=== PATIENT | female | born 1980 | race Caucasian/White ===

== ENCOUNTER → 2018-04-19 09:59 | Outpatient (CLI) | payer OTHER, SELFPAY ==
[2018-04-19 11:49] LABS: Hemoglobin A1c 5.6 % (4.2-6.3)
[2018-04-19 11:52] LABS: Progesterone Level 6.03 ng/mL (See Comment)
[2018-04-19 11:55] LABS: Estradiol 80.5 pg/mL; Thyroid Stim Hormone (TSH) 1.43 uIU/mL (0.358-3.74)
[2018-04-21 11:52] LABS: HPV Reflexed? NOT INDICATED
== END ==
PROVIDERS: Visit Provider Obstetrics & Gynecology
DX: N92.0 Excessive and frequent menstruation with regular cycle (principal); Z12.4 Encounter for screening for malignant neoplasm of cervix
CPT/HCPCS: 36415; 82670; 83036; 84144; 84403; 84443; 88175; G0145

== ENCOUNTER → 2018-09-12 13:38 | Outpatient (CLI) | payer OTHER, SELFPAY ==
--- NOTE | 2018-09-12 13:45 | RAD_ITS ---
STUDY: X-RAY - PELVIS AND RIGHT HIP REASON FOR EXAM: Female, 38 years old. Right hip pain. No known injury TECHNIQUE: Radiological exam, hip, unilateral, with pelvis when performed; 2 or 3 views. COMPARISON: None. FINDINGS: There is a non-specific bowel gas pattern. Normal visualized soft tissue structures. Normal bilateral iliac wings, sacroiliac joints and visualized sacrum. Normal bilateral superior and inferior pubic rami. Normal pubic symphysis. Normal bilateral ischial tuberosities. Normal visualized femoral head. Normal acetabulum. Normal hip joint. RAD/HIP, UNI W/ Pelvis 2-3 Views IMPRESSION: Normal x-ray examination of the pelvis and hip. Electronically Signed: Bharath Hurt DO at 12:50 EDT Tel , Service support ,
== END ==
PROVIDERS: Family Provider Family Medicine; PCP Family Medicine; Referring Provider Family Medicine; Visit Provider Family Medicine
DX: M25.559 Pain in unspecified hip (principal)
CPT/HCPCS: 73502

== ENCOUNTER → 2019-04-18 14:28 | Outpatient (CLI) | payer OTHER, SELFPAY ==
[2017-11-17 14:37] VITALS: BMI 27.2
[2019-04-21 12:48] LABS: HPV Reflexed? NOT INDICATED
== END ==
PROVIDERS: Visit Provider Obstetrics & Gynecology
DX: Z12.4 Encounter for screening for malignant neoplasm of cervix (principal)
CPT/HCPCS: 88175; G0145

== ENCOUNTER → 2019-06-14 14:47 | Outpatient (CLI) | payer OTHER, SELFPAY ==
--- NOTE | 2019-06-14 14:50 | BI_ITS ---
MAMMOGRAPHY - BILATERAL SCREENING REASON FOR EXAM: Female, 39 years old. Routine annual screening examination. PERTINENT HISTORY: Mother with breast cancer. Grandmother with breast cancer. TECHNIQUE: Digital bilateral breast danny (3D mammographic acquisition) in the CC and MLO projections. 2-D mediolateral oblique (MLO) and craniocaudad (CC) views of both breasts were obtained. CAD: Full Field Digital Mammography with Computer Added Detection was performed. COMPARISON: None. Baseline examination. FINDINGS: Breast Composition: The breasts are heterogeneously dense, which may obscure small masses. There are no dominant masses or suspicious calcifications. No other significant abnormalities are identified. BI/SCREEN MAMM (CAD) W/DANNY BILAT IMPRESSION: Negative screening mammogram. Yearly followup mammogram recommended. (A) ASSESSMENT CATEGORY: BIRADS Category 1: Negative. A letter regarding these results will be sent to the patient by the facility within 30 days. Approximately 10% of breast cancers are not detected by mammography. A normal mammogram should not delay biopsy of a clinically suspicious abnormality. [id number] Electronically Signed: Deven Mendoza, at 15:46 EDT , Service support ,
== END ==
PROVIDERS: Referring Provider Obstetrics & Gynecology; Visit Provider Obstetrics & Gynecology
DX: Z12.31 Encounter for screening mammogram for malignant neoplasm of breast (principal)
CPT/HCPCS: 77063; 77067

== ENCOUNTER → 2020-07-11 14:06 | Outpatient (CLI) | payer OTHER, SELFPAY ==
[2017-11-17 14:37] VITALS: BMI 27.2
[2020-07-15 20:54] LABS: HPV APTIMA, High Risk Negative (Negative); HPV Reflexed? YES, CHARGE PATIENT
== END ==
PROVIDERS: Referring Provider Student in an Organized Health Care Education/Training Program; Visit Provider Student in an Organized Health Care Education/Training Program
DX: Z12.4 Encounter for screening for malignant neoplasm of cervix (principal)
CPT/HCPCS: 87624; 88175; G0145

== ENCOUNTER 2022-01-28 07:56 | Outpatient (CLI) | payer OTHER, SELFPAY ==
--- NOTE | 2022-01-28 07:58 | BI_ITS ---
MAMMOGRAPHY - BILATERAL SCREENING REASON FOR EXAM: Female, 41 years old. Routine annual screening examination. PERTINENT HISTORY: Mother with breast cancer. Grandmother with breast cancer. Aunts with breast cancer. TECHNIQUE: Digital bilateral breast danny (3D mammographic acquisition) in the CC and MLO projections. 2-D mediolateral oblique (MLO) and craniocaudad (CC) views of both breasts were obtained. CAD: Full Field Digital Mammography with Computer Added Detection was performed. COMPARISON: Comparison is made with prior study dated 06/14/2019. FINDINGS: Breast Composition: The breasts are extremely dense, which lowers the sensitivity of mammography. There are no dominant masses or suspicious calcifications. Stable small benign appearing bilateral axillary lymph nodes. No other significant abnormalities are identified. There has been no significant change since the prior study. BI/SCRN MAMM (CAD)W/DANNY BILAT IMPRESSION: Stable bilateral screening mammogram. Yearly follow-up mammogram recommended. (A) ASSESSMENT CATEGORY: BIRADS Category 2: Benign. A letter regarding these results will be sent to the patient by the facility within 30 days. Approximately 10% of breast cancers are not detected by mammography. A normal mammogram should not delay biopsy of a clinically suspicious abnormality. [id number] Electronically Signed: Deven Mendoza MD at 9:48 EST ,
== END 2022-01-28 23:59 | disposition home or self-care (01) ==
LOC: OPBI 07:56
PROVIDERS: PCP Family Medicine; Visit Provider Student in an Organized Health Care Education/Training Program
DX: Z12.31 Encounter for screening mammogram for malignant neoplasm of breast (principal); Z80.3 Family history of malignant neoplasm of breast
CPT/HCPCS: 77063; 77067

== ENCOUNTER → 2023-07-08 | Outpatient (CLI) | payer OTHER, SELFPAY ==
[2023-07-08 12:21] LABS: Progesterone Level 0.67 ng/mL (See Comment)
[2023-07-08 12:25] LABS: Estradiol 47.6 pg/mL; Follicle Stimulating Hormone 38.1 mIU/mL; Luteinizing Hormone 53.4 mIU/mL; Prolactin 11.7 ng/mL; Thyroid Stim Hormone (TSH) 1.34 uIU/mL (0.358-3.74)
[2023-07-14 16:10] LABS: HPV APTIMA, High Risk Negative (Negative)
== END | disposition home or self-care (01) ==
LOC: LABSPEC 11:21
PROVIDERS: PCP Family Medicine; Visit Provider Student in an Organized Health Care Education/Training Program
DX: Z01.419 Encounter for gynecological examination (general) (routine) without abnormal findings (principal); N93.9 Abnormal uterine and vaginal bleeding, unspecified
CPT/HCPCS: 36415; 82670; 83001; 83002; 84144; 84146; 84443; 87624; 88175; G0145

== ENCOUNTER → 2023-07-29 | Outpatient (CLI) | payer OTHER, SELFPAY ==
--- NOTE | 2023-07-29 10:51 | BI_ITS ---
MAMMOGRAPHY - BILATERAL SCREENING REASON FOR EXAM: Female, 43 years old. Routine annual screening examination. PERTINENT HISTORY: Mother with breast cancer. Grandmother with breast cancer. Aunts with breast cancer. TECHNIQUE: Digital bilateral breast danny (3D mammographic acquisition) in the CC and MLO projections. 2-D mediolateral oblique (MLO) and craniocaudad (CC) views of both breasts were obtained. CAD: Full Field Digital Mammography with Computer Added Detection was performed. COMPARISON: Comparison is made with prior study January 28, 2022 and June 14, 2019. FINDINGS: Breast Composition: The breasts are heterogeneously dense, which may obscure small masses. There are no dominant masses or suspicious calcifications. Stable benign-appearing bilateral axillary lymph nodes. No other significant abnormalities are identified. There has been no significant change since the prior study. BI/SCRN MAMM (CAD)W/DANNY BILAT IMPRESSION: Stable bilateral screening mammogram. Yearly follow-up mammogram recommended. (A) ASSESSMENT CATEGORY: BIRADS Category 2: Benign. A letter regarding these results will be sent to the patient by the facility within 30 days. Approximately 10% of breast cancers are not detected by mammography. A normal mammogram should not delay biopsy of a clinically suspicious abnormality. [id number] Electronically Signed: Deven Mendoza MD at 12:40 EDT ,
== END | disposition home or self-care (01) ==
LOC: OPBI 10:47
PROVIDERS: PCP Family Medicine; Referring Provider Student in an Organized Health Care Education/Training Program; Visit Provider Student in an Organized Health Care Education/Training Program
DX: Z12.31 Encounter for screening mammogram for malignant neoplasm of breast (principal); Z80.3 Family history of malignant neoplasm of breast
CPT/HCPCS: 77063; 77067

== ENCOUNTER → 2024-09-10 | Outpatient (CLI) | payer OTHER, SELFPAY ==
[2024-09-10 15:34] LABS: Estradiol < 11.0 pg/mL; Follicle Stimulating Hormone 45.6 mIU/mL
[2024-09-18 15:09] LABS: HPV APTIMA, High Risk Negative (Negative)
== END | disposition home or self-care (01) ==
LOC: WOBLAB 14:44
PROVIDERS: PCP Family Medicine; Referring Provider Nurse Practitioner Women's Health; Visit Provider Nurse Practitioner Women's Health
DX: Z12.4 Encounter for screening for malignant neoplasm of cervix (principal); Z80.3 Family history of malignant neoplasm of breast
CPT/HCPCS: 36415; 82670; 83001; 87624; 88175; G0145

== ENCOUNTER → 2024-09-26 | Outpatient (CLI) | payer OTHER, SELFPAY ==
--- NOTE | 2024-09-26 09:57 | BI_ITS ---
MAMMOGRAPHY - BILATERAL SCREENING REASON FOR EXAM: Female, 44 years old. Routine annual screening examination. PERTINENT HISTORY: Mother with breast cancer. Grandmother with breast cancer. Aunts with breast cancer. TECHNIQUE: Digital bilateral breast danny (3D mammographic acquisition) in the CC and MLO projections. 2-D mediolateral oblique (MLO) and craniocaudad (CC) views of both breasts were obtained. CAD: Full Field Digital Mammography with Computer Added Detection was performed. COMPARISON: Comparison is made with prior study dated July 29, 2023 and January 28, 2022. FINDINGS: Breast Composition: The breasts are heterogeneously dense, which may obscure small masses. There are no dominant masses or suspicious calcifications. Stable small benign-appearing bilateral axillary lymph nodes. No other significant abnormalities are identified. There has been no significant change since the prior study. BI/SCRN MAMM (CAD)W/DANNY BILAT IMPRESSION: Stable bilateral screening mammogram. Yearly follow-up mammogram recommended. (A) ASSESSMENT CATEGORY: BIRADS Category 2: Benign. A letter regarding these results will be sent to the patient by the facility within 30 days. Approximately 10% of breast cancers are not detected by mammography. A normal mammogram should not delay biopsy of a clinically suspicious abnormality. [id number] Electronically Signed: Deven Mendoza MD at 11:27 EDT ,
== END | disposition home or self-care (01) ==
LOC: OPBI 09:57
PROVIDERS: PCP Family Medicine; Referring Provider Nurse Practitioner Women's Health; Visit Provider Nurse Practitioner Women's Health
DX: Z12.31 Encounter for screening mammogram for malignant neoplasm of breast (principal); Z80.3 Family history of malignant neoplasm of breast
CPT/HCPCS: 77063; 77067

== ENCOUNTER 2024-12-06 05:48 | Day surgery (SDC) | payer OTHER, SELFPAY ==
[2024-12-06] VITALS (7 sets, daily range): BP systolic 111–128; BP diastolic 71–88; PULSE 86–97; RESP 16; TEMP 36.2–36.6; O2SAT 94–98; BMI 30.6
--- NOTE | 2024-12-06 06:52 | PRE.ANES_ITS ---
ASA Classification* ASA Classification ASA Classification: 2 Assessment & Plan Anesthesia* Anesthesia Assessment Anesthesia Assessment: Discussed sedation and/or anesthesia options, risks, benefits, and alternatives with patient/parents/legal guardian/POA. Questions invited. The patient/parents/legal guardian/POA seems to understand and agrees to proceed with anesthesia plan. Reviewed the physical assessment, medical history, allergy history and patient home medications list prior to surgery/procedure/anesthetic and documented any changes. Performed airway and anesthesia risk assessments. Anesthesia Type Anesthesia Type: General (hx n/v, scopalamine patch placed) Anesthesia Focused Assessment* Temperature: 97.8 F Pulse Rate: 89 Blood Pressure: 111/82 Respiratory Rate: 16 Pulse Ox: 97 Airway Assessment Mouth opens: >3 cm Mallampati Score: II Focused Labs Anesthesia Preop lab: 2 CBC WBC 9.9 K/mm3 (4.4-11.0) 07/04/24 07:42 RBC 4.68 M/mm3 (4.2-5.4) 07/04/24 07:42 Hgb 14.9 g/dL (12.0-15.0) 07/04/24 07:42 Hct 44.5 % (37-47) 07/04/24 07:42 Plt Count 256 K/mm3 (150-450) 07/04/24 07:42 CHEMISTRY Potassium 3.9 mmol/L (3.5-5.1) 07/04/24 07:42 Sodium 141 mmol/L (136-145) 07/04/24 07:42 Phosphorus 4.0 mg/dL (2.5-4.9) 07/04/24 07:42 BUN 13 mg/dL (7-18) 07/04/24 07:42 Creatinine 0.82 mg/dL (0.55-1.02) 07/04/24 07:42 Glucose 104 mg/dL (74-106) 07/04/24 07:42 POC Glucose 75 mg/dL (70-110) 04/02/13 07:08 TSH 1.34 uIU/mL (0.358-3.74) 07/08/23 11:24 COAG PT 12.3 SECONDS (11.7-14.9) 10/23/14 10:19 Urine Test Negative Negative 10/28/14 07:30 Pre-Assessment Diagnosis/Proposed Procedure Planned Operative Procedure(s): (B) Release, Trigger Thumb Anesthesia History 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 When Was Last Pacemaker Check QUESTION #4 FULL TEXT: You/Your Family Experience fever (hyperthermia) with Anesthesia Last Oral Intake Last Oral intake: Last Oral Intake NPO since 00:00 12/06/24 06:22 Meds taken in AM with sips of Yes 12/06/24 06:22 water? Meds patient instructed to albuterol 12/06/24 06:22 take am of surgery PONV PONV - signal system testing maintainer: PONV - signal system testing maintainer Female Yes 11/30/24 08:24 HX of Motion Sickness No 11/30/24 08:24 HX of N/V After Surgery Yes 11/30/24 08:24 Non-Smoker No 11/30/24 08:24 Duration of Surgery greater No 11/30/24 08:24 than 60 minutes Number of Risk Factors 2 11/30/24 08:24 PONV Score Moderate Risk 11/30/24 08:24 Height & Weight Height & Weight: Anesthesia: Height & Weight Height 5 ft 4 in 12/06/24 06:22 Weight: 81 kg 12/06/24 06:22 Body Mass Index (BMI) 30.6 12/06/24 06:22 Respiratory Assessment Respiratory Assessment - signal system testing maintainer: Respiratory Tract Infection Hx - signal system testing maintainer Hx Respiratory Tract Infection No 11/30/24 08:24 STOP Sleep Apnea STOP Sleep Apnea - signal system testing maintainer: STOP Sleep Apnea - signal system testing maintainer Hx Hypertension No 11/30/24 08:24 Hx Sleep Apnea No 11/30/24 08:24 CPAP No 11/30/24 08:24 BIPAP No 11/30/24 08:24 Do you snore loudly (louder No 11/30/24 08:24 than talking or can be heard Do you often feel tired/ No 11/30/24 08:24 fatigued/ sleepy during daytime? Has anyone observed you stop No 11/30/24 08:24 breathing during sleep? STOP Results Negative 11/30/24 08:24 QUESTION #5 FULL TEXT : Do you snore loudly (louder than talking or can be heard through closed doors)? 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 Specify any problems Hx of Preganancy in last 3 No 11/30/24 08:24 Months Nurse Filling Out Transfusion VCHRISTIN 11/30/24 08:24 & Questions: Date: 11/30/24 11/30/24 08:24 Time: 08:25 11/30/24 08:24 Patient unable to answer at this time (ie. confused, unrespo /Reproduction History /Reproductive History - signal system testing maintainer: /Reproductive Hx- signal system testing maintainer Hx Now No 11/30/24 08:24 Gestational Age (in weeks): EDC: Hx Hx Para Hx Section SAB No 11/30/24 08:24 Active Medications Active Medications: Current Medications Generic Name Dose Route Start Last Admin Trade Name Freq PRN Reason Stop Dose Admin Cefazolin Sodium 2 gm/ N/A 20 mls @ 400 mls/hr 12/06/24 07:30 IV 12/06/24 07:32 PREOP ONE [facility] Medical History Wears glasses History of steroid therapy Migraine headache Injury of head and neck Gastric reflux Smoker Gestational hypertension Hx of vaginal bleeding High blood pressure (11/28/11) Asthma (11/28/91) Home Medications ?Medication ?Instructions ?Recorded ?Last Taken ?Type albuterol sulfate 90 mcg/actuation 1 - 2 puff inhalation Q4H PRN PRN 10/23/14 12/06/24 History aerosol inhaler Wheezing flax seed 2 tab PO DAILY 09/10/24 12/05/24 History multivitamin 2 tab PO QAM 09/10/24 12/05/24 History Allergy/AdvReac Type Severity Reaction Status Date / Time No Known Allergies Allergy Verified 11/30/24 08:14 Family History Mother Skin cancer Cervical cancer Osteoporosis Heart disease Myocardial infarction Breast cancer COPD (chronic obstructive pulmonary disease) Hypertension Asthma Father Alcoholism Heart disease Myocardial infarction Hypertension Grandmother Heart disease Breast cancer Hypertension Surgical History History of wisdom tooth extraction S/P LEEP History of tubal ligation Social History adopted: No household members: spouse and children number of children: 2 current occupational status: employed current occupation: [employer] current occupational exposures/hazards: No pets and animals: Yes leisure activities: reading and other history of recent travel: No sexually active: Yes Smoking Status: Current every day smoker tobacco type: cigarettes Tobacco: How many years used: 23 quit status: considering quitting alcohol intake: current alcohol intake frequency: a few times a week Alcohol type: other well-balanced diet: about half the time caffeine: Yes Type: coffee eating out: rarely or never during the past year weight has: remained stable what type of physical activity do you participate in: other frequency: 1-2 times per week duration: > 90 minutes/day micha/samaritan: None seatbelt use: always do you feel safe at home: Yes additional social history: - Dariel Review of Systems (Anesthesia) ROS Narrative System reviewed and no additional complaints, except as documented.
[2024-12-06] MEDS: Cefazolin 2 GM in Syringe IV (07:28)
[2024-12-06] MEDS: Lidocaine 1% /Epi 1:100 (20ml) 20 ML Vial (07:47)
--- NOTE | 2024-12-06 09:25 | PCM.POST.ANE ---
Anesthesia: Postop Eval I Current Vital Signs Temperature: 97.1 F Pulse Rate: 86 Blood Pressure: 128/71 Respiratory Rate: 16 Pulse Ox: 98 Oxygen Delivery Method: Room Air Assessment Airway patent: Yes Spontaneous unlabored respirations: Yes Mental status: Awake and Calm nausea: No Vomiting: No Anesthesia Complication: No Fluid Hydration Crystalloid volume administer (ml): 10 Total IV fluid infused: 10 Progress Note Anesthesia document: Postop Eval 1 completed: Yes
--- NOTE | 2024-12-06 13:35 | PCM.POSTANE2 ---
Anesthesia Postop Eval I Sum Postop Eval Completion status Anesthesia document: Postop Eval 1 completed: Yes Anesthesia Postop Eval I Summary Anesthesia Postop Eval I Summary: Anesthesia Postop Eval I: Assessment Summary Airway patent Yes 12/06/24 13:35 Spontaneous unlabored Yes 12/06/24 13:35 respirations Mental status Awake,Calm 12/06/24 13:35 nausea No 12/06/24 13:35 Vomiting No 12/06/24 13:35 Anesthesia Postop Eval I: Fluid Summary Crystalloid volume administer 10 12/06/24 13:35 (ml) Colloids volume administered ( ml) Blood Product volume administered (ml) Total IV fluid infused 10 12/06/24 13:35 Anesthesia Postop Eval I: Summary Notes Anesthesia Complication No 12/06/24 13:35 Anesthesia Complication Comment: Post-operative progress note Anesthesia: Postop Eval II Evaluation Mental status: Awake Pain Level: 2 nausea: No Vomiting: No
--- NOTE | 2024-12-06 14:31 | PCM.OPRPT ---
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: No Type of Anesthesia: Local MAC RN Documented Start/Stop Times: Operation Date: 12/06/24 07:30 Case Time Into Pre-Op 12/06/24 06:00 Out of Pre-Op 12/06/24 07:25 Anesthesia Start 12/06/24 07:28 Into Room 12/06/24 07:28 Procedure Start 12/06/24 07:47 Procedure End 12/06/24 08:04 Anesthesia End 12/06/24 08:10 Out of Room 12/06/24 08:10 Into Recovery 12/06/24 08:15 Out of Recovery 12/06/24 08:27 Into Phase II Recovery 12/06/24 08:30 Out of Phase II 12/06/24 09:22 Procedure Start Time: 07:47 Procedure Stop Time: 08:04 Select all DRAINS/GRAFTS/IMPLANTS that apply: None Estimated Blood Loss: 5 cc Specimen collected: No Description of surgery: Patient was identified in the preoperative holding area by name, medical record number, and date of . The operative digits were marked. All questions were answered to the patient satisfaction. At time of her procedure, patient was brought to the operative suite and posterior distal in the supine on a standard operating table. MAC anesthesia was achieved. Tumescent field blocks were then administered in both hands with 10 cc 1% lidocaine with epinephrine respectively. Well-padded pneumatic tourniquets were applied to both forearms. We prepped and draped both hands in a normal, sterile orthopedic fashion. We then performed a timeout confirming the side, site, and operations to be performed. No concerns were voiced and we elected to proceed with surgery. 2 g Ancef was administered IV prior to a tourniquet inflation by anesthesia staff. I first turned my attention of the right hand. Right hand was exsanguinated the Esmarch bandage. Tourniquet is inflated to 250 mmHg for 3 minutes. Esmarch was removed. Transverse incision was made in the MP flexion crease of the right thumb. Blunt dissection was carried through the subcutaneous plane protecting neurovascular bundles. A1 evans was identified and split in line with the FPL. Proximal and distal releases were completed with Littler scissors. Flexor tendon was examined and appeared pristine. Tourniquet was deflated after the wound was copiously irrigated with normal saline. Skin edges were reapproximated with interrupted horizontal mattress 4-0 nylon suture. Bulky sterile compression dressing was applied. I then turned my attention the left hand. Left hand was exsanguinated with an Esmarch bandage. Tourniquet was inflated to 250 mmHg for 3 minutes. Esmarch was removed. Transverse incision was made in the MP flexion crease of the left thumb. Blunt dissection was carried through the subcutaneous plane protecting neurovascular bundles. A1 evans was identified and split in line with the FPL. Proximal and distal releases were completed with Littler scissors. Flexor tendon appeared pristine. Tourniquet was deflated after the wound was copiously irrigated with normal saline. Skin edges were reapproximated with interrupted horizontal mattress 4-0 nylon suture. Bulky sterile compression dressing was applied. Patient was then awakened from anesthesia. She tolerated the procedure well without apparent complication. She was transferred to [place] and subsequent to PACU in stable condition. Postoperative plan: Weightbearing less than 2 pounds to the operative digits x 2 weeks. Follow-up in 2 weeks for suture removal. [place] prescription provided. Tylenol and ibuprofen encouraged. Ice and elevation encouraged. Okay to wash hands in 2 days. Ice and elevation encouraged. Surgical Findings: A1 evans releases bilaterally. Normal-appearing FPL tendons. Complications Complications: No Admit VTE Documentation VTE Present on Admission: No VTE Mechan Device Prophylaxis: None VTE Pharm Prophylaxis ordered?: No Reason prophylaxis not ordered: Treatment Not Indicated
== END 2024-12-06 09:23 | disposition home or self-care (01) ==
LOC: SDC 05:48 → AC 05:49
PROVIDERS: PCP Family Medicine; Referring Provider Student in an Organized Health Care Education/Training Program; Visit Provider Student in an Organized Health Care Education/Training Program
PROC: (CPT 26055; principal; 2024-12-06 07:20)
DX: M65.311 Trigger thumb, right thumb (principal); M65.312 Trigger thumb, left thumb; Z86.16 Personal history of COVID-19; Z98.51 Tubal ligation status; F17.210 Nicotine dependence, cigarettes, uncomplicated; K21.9 Gastro-esophageal reflux disease without esophagitis; J45.909 Unspecified asthma, uncomplicated; R03.0 Elevated blood-pressure reading, without diagnosis of hypertension; E66.9 Obesity, unspecified; Z68.30 Body mass index [BMI] 30.0-30.9, adult
CPT/HCPCS: 26055; 01810; A4216; J2405

== ENCOUNTER → 2025-05-22 | Outpatient (CLI) | payer OTHER, SELFPAY ==
--- NOTE | 2025-05-22 12:45 | MRI_ITS ---
PROCEDURE: BREAST BILATERAL W/O AND W 05/22/2025 REASON FOR EXAM: 45-year-old female presents for high-risk screening breast MRI due to family history of breast cancer and dense breast tissue. TECHNIQUE: BREAST BILATERAL W/O AND W CONTRAST: 17 mL of IV Clariscan COMPARISON: Mammograms 09/26/2024, 07/29/2023 FINDINGS: TISSUE DENSITY: The breasts are heterogeneously dense, which may obscure small masses. Background Parenchymal Enhancement: Mild RIGHT Breast: No suspicious mass or non-mass enhancement. LEFT Breast: No suspicious mass or non-mass enhancement. Other Findings: No suspicious axillary or internal mammary lymph nodes. Visualized portions of the thoracic and abdominal viscera are unremarkable. MRI/Breast Bilateral W/O and W IMPRESSION: There is no MR evidence of malignancy in either breast. OVERALL FINAL ASSESSMENT BI-RADS 1: NEGATIVE. RECOMMEND ANNUAL MAMMOGRAPHIC SCREENING. RECOMMENDATION: Routine annual follow-up in 1 Year Reading Location: [id number]
--- OUTSIDE RECORDS SUMMARY | 2025-05-22 21:55 | XMS RPT_ITS | CCD ---
Author Organization [facility] Inform ion [facility] Care Team Providers Care Municipal Firefighter Name Role Phone Jessica Cabrerakp Unavailable Unavailable MARCUS BLUM DO Attending Unavailable VIKTORIA DOMARCUS Primary Care Unavailable Sandy COMMERCIAL CARPENTER, Karen Referring Unavailable Viktoria, Marcus Primary Care Unavailable Josy COMMERCIAL CARPENTER, Karen Attending Unavailable Josy COMMERCIAL CARPENTER, Karen Referring Unavailable Viktoria, Marcus Primary Care Unavailable Sandy COMMERCIAL CARPENTER, Karen Attending Unavailable Assessment, Health Risk Referring Unavaila ble Viktoria, Marcus Primary Care Unavailable Assessment, Health Risk Attending Unavaila ble Viktoria, Marcus Primary Care Unavailable Sandy COMMERCIAL CARPENTER, Karen Referring Unavailable Jsoy COMMERCIAL CARPENTER, Karen Attending Unavailable Josy COMMERCIAL CARPENTER, Karen Referring Unavailable Josy COMMERCIAL CARPENTER, Karen Attending Unavailable Marcus Blum Primary Care Unavailable Viktoria, Marcus Primary Care Unavailable Viktoria Marcus Referring Unavailable Sandy COMMERCIAL CARPENTER, Karen Attending Unavailable Viktoria, Marcus Primary Care Unavailable SpittAndrews hope Attending Unavailable SpittleDomenicoAndrews Referring Unavailable Medications Current Medications Medication Drug Class(es) Dates Sig (Normalized) Sig (Original) [id number] actuat albuterol 0.09 mg/actuat metered dose inhaler (2 sources) beta2-Adrenergic Agonist Start: 10-23-2014 take 1 puff(s) by inhalation every four hours as needed Albuterol Sulfate Active 1 - 2 PUFF INHALATION EVERY 4 HOURS NEEDED October 23, 2014 1:00am Completed/Discontinued Medications Medication Drug Class(es) Dates Sig (Normalized) Sig (Original) acetaminophen 325 mg / oxyCODONE hydrochloride 5 mg oral tablet (2 sources) Opioid Agonist Start: 10-28-2014 End: 11-17-2017 take 1 tablet by mouth every four hours as needed Oxycodone-Acetamin ophen Discontinued 1 - 2 TABLET PO EVERY 4 HOURS NEEDED October 28, 2014 1:00am November 17, 2017 3:41pm amoxicillin 500 mg oral capsule (2 sources) Penicillin-class Antibacterial Start: 11-17-2017 End: 11-27-2017 take 1000 mg by mouth twice daily Amoxicillin Discontinued 1000 MG PO TWICE A DAY 40 November 17, 2017 1:00am November 27, 2017 1:06am ethinyl estradiol 0.02 mg / norethindrone acetate 1 mg oral tablet (2 sources) Estrogen Start: 10-23-2014 End: 11-17-2017 Norethindrone Ac-Eth Estradiol Discontinued 1 EACH PO DAILY October 23, 2014 1:00am November 17, 2017 3:43pm ibuprofen 800 mg oral tablet (2 sources) Nonsteroidal Anti-inflammatory Drug Start: 10-28-2014 End: 11-17-2017 take 800 mg by mouth three times daily as needed Ibuprofen Discontinued 800 MG PO 3 TIMES DAILY NEEDED October 28, 2014 1:00am November 17, 2017 3:41pm labetalol hydrochloride 100 mg oral tablet (2 sources) beta-Adrenergic Rubina Start: 10-23-2014 End: 11-17-2017 take 100 mg by mouth once daily Labetalol Discontinued 100 MG PO DAILY October 23, 2014 1:00am November 17, 2017 3:41pm Multivitamin With Folic Acid (2 sources) Start: 10-23-2014 End: 11-17-2017 take 1 tablet by mouth once daily Multivitamin With Folic Acid Discontinued 1 TABLET PO DAILY October 23, 2014 1:00am November 17, 2017 3:43pm [place]-3 Fatty Acids-Fish Oil (2 sources) Start: 10-23-2014 End: 11-17-2017 [place]-3 Fatty Acids-Fish Oil Discontinued 1 EACH PO DAILY October 23, 2014 1:00am November 17, 2017 3:43pm Problems Active Problems Problem Classification Problem Date Documented Da te Episodic/Chronic Menopausal disorders (1 source) Menopausal and female climacteric states; Translations: [Menopausal and female climacteric states] Onset: 09-10-2024 Chronic Other and unspecified benign neoplasm (2 sources) Other benign neoplasm of skin, unspecified; Translations: [Other benign neoplasm of skin, unspecified] Onset: 08-06-2024 Episodic Other ear and sense organ disorders (2 sources) Impacted cerumen; Translations: [Impacted cerumen, unspecified ear] 11-17-2017 Episodic Other upper respiratory infections (2 sources) Pharyngitis; Translations: [Acute pharyngitis, unspecified] 11-17-2017 Episodic Residual codes; unclassified (2 sources) Family history of malignant neoplasm of breast; Translations: [Family history of malignant neoplasm of breast] Onset: 09-10-2024 Episodic Unclassified (1 source) Unknown / UNK(Unknown) Onset: 08-22-2017 Past or Other Problems Problem Classification Problem Date Documented Date Episodic/Chronic Asthma (1 source) Asthma Onset: 08-22-2017 Other connective tissue disease (1 source) Trigger thumb, right thumb; Translations: [Trigger thumb, right thumb] Onset: 12-28-2024 Episodic Other screening for suspected conditions (not mental disorders or infectious disease) (3 sources) Encounter for screening mammogram for malignant neoplasm of breast; Translations: [Encounter for screening for malignant neoplasm of cervix] Onset: 09-10-2024 Episodic Residual codes; unclassified (1 source) Other specified postprocedural states; Translations: [Other specified postprocedural states] Onset: 09-10-2024 Episodic Results Test Name Value Interpretation Reference Range Facility MR/POSTOP.[facility] 12-06-2024 MR/POSTOP.[facility] Medical Records Department [address] [place] [address] Anesthesia Postop Eval I 12/06/24924 MR#: [id number] Acct: [id number] Name: SHELLIEVEGA E Rep #: [id number] : 1980 44 From: Eloy Valdivia MD PCP: Dr. Marcus Blum, DO Status:[facility] Y Race: C [place] [facility] [place]esthesia: Postop Eval I Current Vital Signs Temperature: 97.1 F Pulse Rate: 86 Blood Pressure: 128/71 Respiratory Rate: 16 Pulse Ox: 98 Oxygen Delivery Method: Room Air Assessment Airway patent: Yes Spontaneous unlabored respirations: Yes Mental status: Awake and Calm nausea: No Vomiting: No Anesthesia Complication: No Fluid Hydration Crystalloid volume administer (ml): 10 Total IV fluid infused: 10 Progress Note Anesthesia document: Postop Eval 1 completed: Yes 12/06/241334 Date Eloy Valdivia MD [facility] Signature: Date CC: Signed Normal [facility] MR/ZPEEZDDO6th 12-06-2024 MR/POSTOPAN2 [facility] Medical Records Department [address] [place] [address] Anesthesia Postop Eval II 12/06/24 1335 MR#: [id number] Acct: [id number] Name: VEGA HENSLEY Rep #: [id number] : 1980 44 From: Eloy Valdivia MD PCP: Dr. Marcus Blum, DO Status:[facility] Y Race: C [place] [facility] [place]esthesia Postop Eval I Sum Postop Eval Completion status Anesthesia document: Postop Eval 1 completed: Yes Anesthesia Postop Eval I Summary Anesthesia Postop Eval I Summary: Anesthesia Postop Eval I: Assessment Summary Airway patent Yes 12/06/24 13:35 Spontaneous unlabored Yes 12/06/24 13:35 respirations Mental status Awake,Calm 12/06/24 13:35 nausea No 12/06/24 13:35 Vomiting No 12/06/24 13:35 Anesthesia Postop Eval I: Fluid Summary Crystalloid volume administer 10 12/06/24 13:35 (ml) Colloids volume administered ( ml) Blood Product volume administered (ml) Total IV fluid infused 10 12/06/24 13:35 Anesthesia Postop Eval I: Summary Notes Anesthesia Complication No 12/06/24 13:35 Anesthesia Complication Comment: Post-operative progress note Anesthesia: Postop Eval II Evaluation Mental status: Awake Pain Level: 2 nausea: No Vomiting: No 12/06/24 1335 Date Eloy Kang Signature: Date CC: Signed Normal [facility] Operative Reporton 5 Operative Report [facility] Medical Records Department [address] [place] [address] Operative Report 12/06/24 1431 MR#: [id number] Acct: [id number] Name: VEGA HENSLEY Rep #: [id number] : 1980 44 From: Andrews Pizano DO PCP: Dr. Marcus Blum DO Status:[facility] [place] [facility] [place] Operative Report (Standard) Operative Information Date of Procedure: 12/06/24 Pre-Operative Diagnosis: Bilateral trigger thumb Post-Operative Diagnosis: Bilateral trigger thumb Surgery/Procedure Performed: Bilateral thumb A1 evans releases lining mechanic: No Type of Anesthesia: Local MAC RN Documented Start/Stop Times: Operation Date: 12/06/24 07:30 Case Time Into Pre-Op 12/06/24 06:00 Out of Pre-Op 12/06/24 07:25 Anesthesia Start 12/06/24 07:28 Into Room 12/06/24 07:28 Procedure Start 12/06/24 07:47 Procedure End 12/06/24 08:04 Anesthesia End 12/06/24 08:10 Out of Room 12/06/24 08:10 Into Recovery 12/06/24 08:15 Out of Recovery 12/06/24 08:27 Into Phase II Recovery 12/06/24 08:30 Out of Phase II 12/06/24 09:22 Procedure Start Time: 07:47 Procedure Stop Time: 08:04 Select all DRAINS/GRAFTS/IMPLANTS that apply: None Estimated Blood Loss: 5 cc Specimen collected: No Description of surgery: Patient was identified in the preoperative holding area by name, medical record number, and date of . The operative digits were marked. All questions were answered to the patient satisfaction. At time of her procedure, patient was brought to the operative suite and posterior distal in the supine on a standard operating table. MAC anesthesia was achieved. Tumescent field blocks were then administered in both hands with 10 cc 1% lidocaine with epinephrine respectively. Well-padded pneumatic tourniquets were applied to both forearms. We prepped and draped both hands in a normal, sterile orthopedic fashion. We then performed a timeout confirming the side, site, and operations to be performed. No concerns were voiced and we elected to proceed with surgery. 2 g Ancef was administered IV prior to a tourniquet inflation by anesthesia staff. I first turned my attention of the right hand. Right hand was exsanguinated the Esmarch bandage. Tourniquet is inflated to 250 mmHg for 3 minutes. Esmarch was removed. Transverse incision was made in the MP flexion crease of the right thumb. Blunt dissection was carried through the subcutaneous plane protecting neurovascular bundles. A1 evans was identified and split in line with the FPL. Proximal and distal releases were completed with Littler scissors. Flexor tendon was examined and appeared pristine. Tourniquet was deflated after the wound was copiously irrigated with normal saline. Skin edges were reapproximated with interrupted horizontal mattress 4-0 nylon suture. Bulky sterile compression dressing was applied. I then turned my attention the left hand. Left hand was exsanguinated with an Esmarch bandage. Tourniquet was inflated to 250 mmHg for 3 minutes. Esmarch was removed. Transverse incision was made in the MP flexion crease of the left thumb. Blunt dissection was carried through the subcutaneous plane protecting neurovascular bundles. A1 evans was identified and split in line with the FPL. Proximal and distal releases were completed with Littler scissors. Flexor tendon appeared pristine. Tourniquet was deflated after the wound was copiously irrigated with normal saline. Skin edges were reapproximated with interrupted horizontal mattress 4-0 nylon suture. Bulky sterile compression dressing was applied. Patient was then awakened from anesthesia. She tolerated the procedure well without apparent complication. She was transferred to her gurney and subsequent to PACU in stable condition. Postoperative plan: Weightbearing less than 2 pounds to the operative digits x 2 weeks. Follow-up in 2 weeks for suture removal. Rincon prescription provided. Tylenol and ibuprofen encouraged. Ice and elevation encouraged. Okay to wash hands in 2 days. Ice and elevation encouraged. Surgical Findings: A1 evans releases bilaterally. Normal-appearing FPL tendons. Complications Complications: No Admit VTE Documentation VTE Present on Admission: No VTE Mechan Device Prophylaxis: None VTE Pharm Prophylaxis ordered?: No Reason prophylaxis not ordered: Treatment Not Indicated 12/06/24 1435 Cosigner Signature (if applicable): CC: Dr. Andrews Pizano DO; Dr. Marcus Blum DO Signed Normal [facility] SCRN MAMM (CAD)W/DANNY BILATo n 09-26-2024 SCRN MAMM (CAD)W/DANNY BILAT [facility] Imaging Services [address] [place] [address] SCRN MAMM (CAD)W/DANNY BILAT MR#: [id number] Acct: [id number] Name: VEGA HENSLEY Rep #: [id number] : 1980 F 44 From: Deven corrales MD PCP: Dr. Marcus Blum DO Status: REG CLI Study: SCRN MAMM (CAD)W/DANNY BILAT Date of Exam: 08/30 Exam# [id number] Ordering Dr: Karen Ferris COMMERCIAL CARPENTER [facility] -[place] [id number] MAMMOGRAPHY - BILATERAL SCREENING REASON FOR EXAM: Female, 44 years old. Routine annual screening examination. PERTINENT HISTORY: Mother with breast cancer. Grandmother with breast cancer. Aunts with breast cancer. TECHNIQUE: Digital bilateral breast danny (3D mammographic acquisition) in the CC and MLO projections. 2-D mediolateral oblique (MLO) and craniocaudad (CC) views of both breasts were obtained. CAD: Full Field Digital Mammography with Computer Added Detection was performed. COMPARISON: Comparison is made with prior study dated July 29, 2023 and January 28, 2022. FINDINGS: Breast Composition: The breasts are heterogeneously dense, which may obscure small masses. There are no dominant masses or suspicious calcifications. Stable small benign-appearing bilateral axillary lymph nodes. No other significant abnormalities are identified. There has been no significant change since the prior study. BI/SCRN MAMM (CAD)W/DANNY BILAT IMPRESSION: Stable bilateral screening mammogram. Yearly follow-up mammogram recommended. (A) ASSESSMENT CATEGORY: BIRADS Category 2: Benign. A letter regarding these results will be sent to the patient by the facility within 30 days. Approximately 10% of breast cancers are not detected by mammography. A normal mammogram should not delay biopsy of a clinically suspicious abnormality. [id number] Electronically Signed: Deven Mendoza MD at 11:27 EDT Reading Location ID and State: [address] [place] [address] , Service support , CC: GALDINO Ferris; Dr. Marcus Blum DO Capsule Machine Operator: Signed Normal [facility] PAP IG HPV APTIMA 16/18,45on 09-18-2024 ADEQ Comment Normal . [facility] Comment on above: Order Comment: Speci men Comment: [id number] Comment: Source.............CervixSpecimen Comment: No. of containers..01 ThinPrep Vial Result Comment: Sati sfactory for evaluation. Endocervical and/or squamous metaplastic cells (endocervical component) are present. Performed By: #### L 7400.0280 ####[facility] [address] [place], [address] COMM . Normal . [facility] Comment on above: Order Comment: Speci men Comment: [id number] Comment: Source.............CervixSpecimen Comment: No. of containers..01 ThinPrep Vial Performed By: #### L 7400.0280 ####[facility] [address] [place], [place], [id number] COMMENT TNP Normal . [facility] Comment on above: Order Comment: Speci men Comment: [id number] Comment: Source.............CervixSpecimen Comment: No. of containers..01 ThinPrep Vial Result Comment: The Thin Prep(R) Prop And Effects Designer was unable to read this specimen. Therefore a manual review was performed. Performed By: #### L 7400.0280 ####[facility] [address] [place], [address] DIAG Comment Normal . [facility] Comment on above: Order Comment: Speci men Comment: [id number] Comment: Source.............CervixSpecimen Comment: No. of containers..01 ThinPrep Vial Result Comment: NEGA TIVE FOR INTRAEPITHELIAL LESION OR MALIGNANCY. REACTIVE CELLULAR CHANGES AND/OR REPAIR ARE PRESENT. Performed By: #### L 7400.0280 ####[facility] [address] [place], [place], [address] HPV APTIMA, HR Negative Normal Negative [facility] Comment on above: Order Comment: Speci men Comment: [id number] Comment: Source.............CervixSpecimen Comment: No. of containers..01 ThinPrep Vial Result Comment: This nucleic acid amplification test detects fourteen high- risk HPV types (16,18,31,33,35,39,45,51,52,56,58,59,66,68) without differentiation. Performed By: #### L 7400.0280 ####[facility] [address] [place], [place], [id number] HPV Candie Rfx Comment Normal . [facility] Comment on above: Order Comment: Speci men Comment: [id number] Comment: Source.............CervixSpecimen Comment: No. of containers..01 ThinPrep Vial Result Comment: Crit ereva not met, HPV Genotype not performed. Performed at: - [facility] [id number] Amusement Or Recreation Card Checker: Reyna Quarles MD, Phone: [phone] Performed at: = - [facility] [id number] Am[employer] Recreation Card Checker: Reyna Quarles MD, Phone: [phone] Performed By: #### L 7400.0280 ####[facility] [address] [place], [address] PAPSMR Comment Normal . [facility] Comment on above: Order Comment: Speci men Comment: [id number] Comment: Source.............CervixSpecimen Comment: No. of containers..01 ThinPrep Vial Result Comment: The Pap smear is a screening test designed to aid in the detection of premalignant and malignant conditions of the uterine cervix. It is not a diagnostic procedure and should not be used as the sole means of detecting cervical cancer. Both false-positive and false-negative reports do occur. Performed By: #### L 7400.0280 ####[facility] [address] [place], [place], [address] PERFORM Comment Normal . [facility] Comment on above: Order Comment: Speci men Comment: [id number] Comment: Source.............CervixSpecimen Comment: No. of containers..01 ThinPrep Vial Result Comment: Juanito Foreman, Abrading Machine Tender (ASCP) Performed By: #### L 7400.0280 ####[facility] [address] [place], [place], [address] SIGN Comment Normal . [facility] Comment on above: Order Comment: Speci men Comment: [id number] Comment: Source.............CervixSpecimen Comment: No. of containers..01 ThinPrep Vial Result Comment: Gavi Quarles MD, Pathologist Performed By: #### L 7400.0280 ####[facility] [address] [place], [place], [address] Estradiolon 09-10-2024 ESTRADIOL < 11.0 Normal [facility] Comment on above: Result Comment: NORM AL REFERENCE RANGES FEMALE FOLLICULAR 21.4 - 164.8 pg/mL MID-CYCLE PEAK 49.9 - 367.2 pg/mL LUTEAL 40.2 - 259.0 pg/mL POST-MENOPAUSAL ON MHT <11.0 - 462.1 pg/mL NOT ON MHT <11.0 - 58.3 pg/mL MALE <11.0 - 52.5 pg/mL NOTE: [facility] HAS CONFIRMED THE DRUG FULVETRANT (FASLODEX) MAY CAUSE FALSELY ELEVATED ESTRADIOL RESULTS WHEN USING THIS TEST METHOD. IF PATIENT IS TAKING FULVESTRANT AN ALTERNATIVE METHOD SHOULD BE USED TO DETERMINE ESTRADIOL CONCENTRATION. Performed By: #### L 3300.1750, L900.0098, L3100.5125 #### [facility] [address] [place], [place], [address] Follicle Stimulating Hormone on 09-10-2024 FSH 45.6 mIU/mL Normal [facility] Comment on above: Result Comment: NORMAL REFERENCE RANGES FEMALE FOLLICULAR 2.3 - 12.6 mIU/mL MID-CYCLE PEAK 5.2 - 17.5 mIU/mL LUTEAL 1.7 - 12.9 mIU/mL POST-MENOPAUSAL ON MHT 5.9 - 72.8 mIU/mL NOT ON MHT 12.7 - 132.2 mlU/mL MALE 0.7 - 10.8 mIU/mL Performed By: #### L 3300.1750, L900.0098, L3100.5125 #### [facility] [address] [place], [place], [address] NATERAon 09-10-2024 GEENA SEE SCANNED REPORT Normal [facility] Comment on above: Performed By: #### L 3300.1750, L900.0098, L3100.5125 #### [facility] [address] [place], [address] Computer Technician Office Visit Reporton 09-10-2024 Computer Technician Office Visit Report [facility] [address] [place] [address] OFFICE VISIT Date of Service: 09/10/24 MR#: [id number] Acct: [id number] Name: VEGA HENSLEY Rep #: [id number] : 1980 Provider: GALDINO hernández Age/Sex: 44/F Location: [facility] Status: Signed Intake Vital Signs 09/10/24 14:11 Height 5 ft 6 in Weight: 179 lb 8 oz BMI 29.0 BP 124/78 H Intake Visit 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) Chief Complaint: Annual Bacteriology Technician Required: No Is patient in pain?: No Allergies No Known Allergies Allergy (Verified 11/17/17 14:40) Medications ???Medication ???Instructions ???Recorded ???Confirmed ???Type albuterol sulfate 90 mcg/actuation 1 - 2 puff inhalation Q4H PRN PRN 10/23/14 11/17/17 History aerosol inhaler Wheezing flax seed PO 09/10/24 History glucosamine sulf dipotassium Cl tab PO 09/10/24 09/10/24 History 500 mg-chondroitin sulf 400 mg tablet multivitamin 1 tab PO QAM 09/10/24 09/10/24 History Is last menstrual period known: No Post menopausal: No Patient : No : No Control Method: BTO PFSH Medical History (Updated 09/10/24 @ 14:49 by Karen Ferris NP, COMMERCIAL CARPENTER-C) High blood pressure (11/28/11) Asthma (11/28/91) Surgical History (Updated 09/10/24 @ 14:49 by Karen Ferris NP, TRI-C) S/P LEEP History of tubal ligation Family History (Updated 10/14/24 @ 14:17 by Doris Grant) Mother Skin cancer Cervical cancer Osteoporosis Heart disease Myocardial infarction Breast cancer COPD (chronic obstructive pulmonary disease) Hypertension Asthma Father Alcoholism Heart disease Myocardial infarction Hypertension Grandmother Heart disease Breast cancer Hypertension Social History (Updated 09/10/24 @ 14:18 by Doris Grant) adopted: No household members: spouse and children number of children: 2 current occupational status: employed 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 current occupational exposures/hazards: No pets and animals: Yes leisure activities: reading and other history of recent travel: No sexually active: Yes Smoking Status: Current every day smoker tobacco type: cigarettes Tobacco: How many years used: 23 quit status: considering quitting alcohol intake: current alcohol intake frequency: a few times a week Alcohol type: other well-balanced diet: about half the time caffeine: Yes Type: coffee eating out: rarely or never during the past year weight has: remained stable what type of physical activity do you participate in: other frequency: 1-2 times per week duration: > 90 minutes/day micha/caodaism: None seatbelt use: always do you feel safe at home: Yes additional social history: - Dariel History 2 Elective abortions Hx Para 2 Spontaneous abortions Hx # Term Pregnancies Ectopic pregnancies Hx # Pregnancies Multiple births # of living children 2 Past Pregnancies Del. Date Name GA/Weeks Outcome Route Bth Weight Gen Labor Lgth Anesthesia Del Locatn Provider FOB Unknown Haylie Unknown Jackie HPI Encounter for routine gynecological examination Details: VEGA HENSLEY is a 44 year old who presents for new patient annual exam. No menses since January 2024. Significant hot flashes, sleep disturbance. Mother had breast cancer as did her grandmother. Last PAP: LGSIL 2022 History of abnormal PAP: LGSIL 2022; Leep 2014 Last mammogram: 07/2023 History of abnormal mammogram: no Colon cancer screening: age 47 Other preventative health care screenings: Viktoria CARNES Const Constitutional: Denies fatigue, weight gain or weight loss Cardio Card: Denies chest pain Resp Resp: Denies cough or dyspnea on exertion GI GI: Denies abdominal pain, bloating, change in stool character, constipation or vomiting : Reports as per HPI; Denies difficulty voiding, pelvic pain, urinary frequency, urinary incontinence, urinary urgency, vaginal discharge or vaginal pruritus Exam Const General: cooperative, healthy appearing, no acute distress and well developed Orientation: alert, oriented to person and oriented to place [facility] Head: normal to inspection Neck Neck: normal visual inspection Thyroid: thyroid normal Lymphatic: no lymphadenopathy noted Chest Breast inspection: normal inspection of the breasts and normal inspection of the axillae Breast palpation: normal palpation of the breasts, normal palpation of the axillae and no axillary lymphadenopathy Resp Effort Inspection: normal respiratory effort GI Palpation: soft, no masses and nontender Rectal Exam: deferred External Female Exam: normal external appearance and normal appearance of the urethra Urethra: normal appearance of the ur (more content not included)... Normal [facility] Final Surgical Pathology Rep [facility] 08-09-2024 Final Surgical Pathology Report . Pathology Reports Accession: Collected Date/Time: Received Date/Time: Pathologist: [id number] 08/06/2024 09:06 EDT 08/07/2024 08:32 EDT RAJENDRA ROMAN MD Final Surgical Pathology Report DIAGNOSIS: SKIN, POSTERIOR NECK, EXCISION: - INTRADERMAL NEVUS, TRANSECTED AT THE BASE Comment: No histologic evidence of malignancy. Immunostain for SOX10 highlights the melanocytes in the dermis. Immunostain for PRAME is completely negative. CLINICAL INFORMATION: DYSPLASTIC NEVUS SPECIMEN: A SKIN, POSTERIOR NECK GROSS DESCRIPTION: All parts labelled with patient name and [id number] Received in formalin labeled back of neck is 1 milton-brown skin fragment measuring 0.5 x 0.4 cm. The skin surface is raised and dark brown. Margin is inked black and specimen is bisected. TS-1 Sabrina Morales, Grossing Model Photographers'/ Dr. Diego Beard, Pathologist Performed by Sabrina Morales MICROSCOPIC DESCRIPTION: The microscopic examination is performed, except in the case of Gross Only. Electronically Signed by Pathology Report verified by [facility] RAJENDRA ROMAN Sign out Date: 08/09/2024 08:56 Performing Lab: [facility], [address] [place] [address] Pathology Dept Disclaimer If ancillary studies were utilized, the following Laboratory Developed Test (LDT) disclaimer will apply: Under CLIA requirements, [facility] Pathology Laboratory is qualified to perform high complexity testing. For all ancillary stains, positive and negative controls stain appropriately. Performance characteristics of immunohistochemical and chromogenic in-situ hybridization tests have been determined by [facility] Pathology Laboratory. These tests are used for clinical purposes, They should not be regarded as investigational or for research. Normal [facility] CBC, Employeeon 07-04-2024 Absolute Lymph 2.25 X10 3/uL Normal 0.83-4.51 [facility] Comment on above: Performed By: #### L 100.0200, L500.2900, L400.0100 #### [facility] Laboratory [address] [place], [address] Absolute Neut 6.9 X10 3/uL Normal 2.0-7.7 [facility] Comment on above: Performed By: #### L 100.0200, L500.2900, L400.0100 #### [facility] Laboratory [address] [place], [address] Basophils/100 WBC (Bld) 0.6 % Normal 0-1 [facility] Comment on above: Performed By: #### L 100.0200, L500.2900, L400.0100 #### [facility] [address] [place], [address] Eosinophils/100 WBC (Bld) 1.5 % Normal 0-5 [facility] Comment on above: Performed By: #### L 100.0200, L500.2900, L400.0100 #### [facility] Laboratory [address] [place], [address] Erythrocyte distribution width (RBC) [Ratio] 11.6 % Normal 11.6-14.6 [facility] Comment on above: Performed By: #### L 100.0200, L500.2900, L400.0100 #### [facility] [address] [place], [address] Hematocrit (Bld) [Volume fraction] 44.5 % Normal 37-47 [facility] Comment on above: Performed By: #### L 100.0200, L500.2900, L400.0100 #### [facility] Laboratory [address] [place], [address] Hemoglobin (Bld) [Mass/Vol] 14.9 g/dL Normal 12.0-15.0 [facility] Comment on above: Performed By: #### L 100.0200, L500.2900, L400.0100 #### [facility] [address] [place], [address] Lymphocytes/100 WBC (Bld) 22.6 % Normal 19-41 [facility] Comment on above: Performed By: #### L 100.0200, L500.2900, L400.0100 #### [facility] [address] [place], [address] MCH (RBC) [Entitic mass] 31.8 pg Normal 27.0-32.0 [facility] Comment on above: Performed By: #### L 100.0200, L500.2900, L400.0100 #### [facility] Laboratory [address] [place], [address] MCHC (RBC) [Mass/Vol] 33.5 g/dL Normal 32-36 [facility] Comment on above: Performed By: #### L 100.0200, L500.2900, L400.0100 #### [facility] [address] [place], [address] MCV (RBC) [Entitic vol] 95.1 fL Normal 81-99 [facility] Comment on above: Performed By: #### L 100.0200, L500.2900, L400.0100 #### [facility] [address] [place], [address] Monocytes/100 WBC (Bld) 5.3 % Normal 0-10 [facility] Comment on above: Performed By: #### L 100.0200, L500.2900, L400.0100 #### [facility] [address] [place], [address] Neutrophils/100 WBC (Bld) 69.7 % Normal 47-70 [facility] Comment on above: Performed By: #### L 100.0200, L500.2900, L400.0100 #### [facility] [address] [place], [address] NRBC # 0.00 10 3/uL Normal 0-5 [facility] Comment on above: Performed By: #### L 100.0200, L500.2900, L400.0100 #### [facility] [address] [place], [address] Nucleated RBC (Bld) [#/Vol] 0 10*3/uL Normal 0-5 [facility] Comment on above: Performed By: #### L 100.0200, L500.2900, L400.0100 #### [facility] [address] [place], [address] Platelet mean volume (Bld) [Entitic vol] 10.1 fL Normal 6.2-12.0 [facility] Comment on above: Performed By: #### L 100.0200, L500.2900, L400.0100 #### [facility] [address] [place], [address] Platelets (Bld) [#/Vol] 256 10*3/uL Normal 150-450 [facility] Comment on above: Performed By: #### L 100.0200, L500.2900, L400.0100 #### [facility] [address] [place], [address] RBC (Bld) [#/Vol] 4.68 10*6/uL Normal 4.2-5.4 [facility] Comment on above: Performed By: #### L 100.0200, L500.2900, L400.0100 #### [facility] [address] [place], [address] RDW SD 40.5 fl Normal 35.1-43.9 [facility] Comment on above: Performed By: #### L 100.0200, L500.2900, L400.0100 #### [facility] [address] [place], [address] WBC (Bld) [#/Vol] 9.9 10*3/uL Normal 4.4-11.0 [facility] Comment on above: Performed By: #### L 100.0200, L500.2900, L400.0100 #### [facility] [address] [place], [address] [employer] 4 Albumin [Mass/Vol] 3.9 g/dL Normal 3.2-5.0 [facility] Comment on above: Performed By: #### L 100.0200, L500.2900, L400.0100 #### [facility] [address] [place], [address] Albumin/Globulin [Mass ratio] 1.1 {ratio} Normal 0.9-2.4 [facility] Comment on above: Performed By: #### L 100.0200, L500.2900, L400.0100 #### [facility] [address] [place], [address] ALK P 69 U/L Normal 45-117 [facility] Comment on above: Performed By: #### L 100.0200, L500.2900, L400.0100 #### [facility] [address] [place], [address] ALT [Catalytic activity/Vol] 26 U/L Normal 13-56 [facility] Comment on above: Performed By: #### L 100.0200, L500.2900, L400.0100 #### [facility] [address] [place], [address] AST [Catalytic activity/Vol] 21 U/L Normal 15-37 [facility] Comment on above: Performed By: #### L 100.0200, L500.2900, L400.0100 #### [facility] [address] [place], [address] Bilirubin [Mass/Vol] 0.40 mg/dL Normal 0.20-1.00 [facility] Comment on above: Result Comment: For patients on eltrombopag therapy, use of Dimension Aylett TBIL is not recommended. Performed By: #### L 100.0200, L500.2900, L400.0100 #### [facility] [address] [place], [address] Bilirubin.direct [Mass/Vol] 0.10 mg/dL Normal 0.00-0.30 [facility] Comment on above: Performed By: #### L 100.0200, L500.2900, L400.0100 #### [facility] [address] [place], [address] BUN/CRE 15.9 RATIO Normal 10-20 [facility] Comment on above: Performed By: #### L 100.0200, L500.2900, L400.0100 #### [facility] [address] [place], [address] CA,Total 9.6 mg/dL Normal 8.5-10.1 [facility] Comment on above: Performed By: #### L 100.0200, L500.2900, L400.0100 #### [facility] [address] [place], [address] Chloride [Moles/Vol] 109 mmol/L High 98-107 [facility] Comment on above: Performed By: #### L 100.0200, L500.2900, L400.0100 #### [facility] [address] [place], [address] CHOL:HDL 6.00 Normal [facility] Comment on above: Performed By: #### L 100.0200, L500.2900, L400.0100 #### [facility] [address] [place], [address] Cholesterol [Mass/Vol] 241 mg/dL High 200 [facility] Comment on above: Result Comment: <200 mg/dL Desirable 200-240 mg/dL Borderline >240 mg/dL High Risk Performed By: #### L 100.0200, L500.2900, L400.0100 #### [facility] [address] [place], [address] Cholesterol in HDL [Mass/Vol] 40 mg/dL Normal [facility] Comment on above: Result Comment: The drugs N-Acetylcysteine and Metamizole may falsely depress this assay. Reference Range HDL <40 mg/dL Low HDL Cholesterol HDL >or= 60 mg/dL High HDL Cholesterol Performed By: #### L 100.0200, L500.2900, L400.0100 #### [facility] [address] [place], [address] Cholesterol in LDL [Mass/Vol] 163 mg/dL High 0-130 [facility] Comment on above: Performed By: #### L 100.0200, L500.2900, L400.0100 #### [facility] [address] [place], [address] Cholesterol in VLDL [Mass/Vol] 38 mg/dL Normal 5-40 [facility] Comment on above: Performed By: #### L 100.0200, L500.2900, L400.0100 #### [facility] [address] [place], [address] CO2 [Moles/Vol] 27.0 mmol/L Normal 21.0-32.0 [facility] Comment on above: Performed By: #### L 100.0200, L500.2900, L400.0100 #### [facility] [address] [place], [address] Creatinine [Mass/Vol] 0.82 mg/dL Normal 0.55-1.02 [facility] Comment on above: Result Comment: The validity of the calculated GFR GFRAA in patients over 70 years has not been determined. Clinical correlation is essential. Performed By: #### L 100.0200, L500.2900, L400.0100 #### [facility] [address] [place], [address] EST GFR - AA 99 mL/min Normal >60 [facility] Comment on above: Result Comment: Afri can Nigerien GFR Calc Performed By: #### L 100.0200, L500.2900, L400.0100 #### [facility] [address] [place], [address] GAP 5 Normal 5-15 [facility] Comment on above: Performed By: #### L 100.0200, L500.2900, L400.0100 #### [facility] [address] [place], [address] GFR/1.73 sq M.predicted among non-blacks MDRD (S/P/Bld) [Vol rate/Area] 81 mL/min/{1.73_m2} Normal >60 [facility] Comment on above: Result Comment: Non- GFR Calc Performed By: #### L 100.0200, L500.2900, L400.0100 #### [facility] [address] [place], [address] Globulin (S) [Mass/Vol] 3.6 g/dL Normal 2.2-4.2 [facility] Comment on above: Performed By: #### L 100.0200, L500.2900, L400.0100 #### [facility] [address] [place], [address] Glucose [Mass/Vol] 104 mg/dL Normal 74-106 [facility] Comment on above: Result Comment: Fast ing Glucose result from 100 to 125 mg/dL suggests IMPAIRED HOMEOSTASIS per A.D.A. criteria. Performed By: #### L 100.0200, L500.2900, L400.0100 #### [facility] [address] [place], [address] LDH 231 U/L Normal 84-246 [facility] Comment on above: Performed By: #### L 100.0200, L500.2900, L400.0100 #### [facility] [address] [place], [address] Phosphate [Mass/Vol] 4.0 mg/dL Normal 2.5-4.9 [facility] Comment on above: Performed By: #### L 100.0200, L500.2900, L400.0100 #### [facility] [address] [place], [address] Potassium [Moles/Vol] 3.9 mmol/L Normal 3.5-5.1 [facility] Comment on above: Performed By: #### L 100.0200, L500.2900, L400.0100 #### [facility] [address] [place], [address] Sodium [Moles/Vol] 141 mmol/L Normal 136-145 [facility] Comment on above: Performed By: #### L 100.0200, L500.2900, L400.0100 #### [facility] [address] [place], [address] T PROT 7.5 g/dL Normal 6.4-8.2 [facility] Comment on above: Performed By: #### L 100.0200, L500.2900, L400.0100 #### [facility] [address] [place], [address] Triglyceride [Mass/Vol] 188 mg/dL Normal [facility] Comment on above: Result Comment: The drugs N-Acetylcysteine and Metamizole may falsely depress this assay. Serum Triglycerides Reference Interval Normal <150 mg/dL Borderline high 150 - 199 mg/dL High 200 - 499 mg/dL Very High > or = 500 mg/dL Performed By: #### L 100.0200, L500.2900, L400.0100 #### [facility] [address] [place], [address] Urea nitrogen [Mass/Vol] 13 mg/dL Normal 7-18 [facility] Comment on above: Performed By: #### L 100.0200, L500.2900, L400.0100 #### [facility] [address] [place], [address] URIC 4.9 mg/dL Normal 2.6-6.0 [facility] Comment on above: Result Comment: The drugs N-Acetylcysteine and Metamizole may falsely depress this assay. Performed By: #### L 100.0200, L500.2900, L400.0100 #### [facility] [address] [place], [address] Urinalysis, Employeeon 07-04 BILIRUBIN URINE Negative Normal Negative [facility] Comment on above: Performed By: #### L 100.0200, L500.2900, L400.0100 #### [facility] [address] [place], [address] Clarity (U) Clear Normal Clear [facility] Comment on above: Performed By: #### L 100.0200, L500.2900, L400.0100 #### [facility] [address] [place], [address] Color (U) Yellow Normal Yellow [facility] Comment on above: Performed By: #### L 100.0200, L500.2900, L400.0100 #### [facility] [address] [place], [address] GLUCOSE, UR Normal Normal Normal [facility] Comment on above: Performed By: #### L 100.0200, L500.2900, L400.0100 #### [facility] [address] [place], [address] KETONE UR Negative Normal Negative [facility] Comment on above: Performed By: #### L 100.0200, L500.2900, L400.0100 #### [facility] [address] [place], [address] LEUK ESTERASE Negative Normal Negative [facility] Comment on above: Performed By: #### L 100.0200, L500.2900, L400.0100 #### [facility] [address] [place], [address] Nitrite Ql (U) Negative Normal Negative [facility] Comment on above: Performed By: #### L 100.0200, L500.2900, L400.0100 #### [facility] [address] [place], [address] OCCULT BLOOD-UR Negative Normal Negative [facility] Comment on above: Performed By: #### L 100.0200, L500.2900, L400.0100 #### [facility] [address] [place], [address] pH UR 6.5 Normal 5.0 - 8.0 [facility] Comment on above: Performed By: #### L 100.0200, L500.2900, L400.0100 #### [facility] [address] [place], [address] PROT DIPSTX Negative Normal Negative [facility] Comment on above: Performed By: #### L 100.0200, L500.2900, L400.0100 #### [facility] [address] [place], [address] SP.GR. DIPSTX 1.010 Normal 1.002-1.030 [facility] Comment on above: Performed By: #### L 100.0200, L500.2900, L400.0100 #### [facility] [address] [place], [address] UROBILI Normal Normal Normal [facility] Comment on above: Performed By: #### L 100.0200, L500.2900, L400.0100 #### [facility] [address] [place], [address] Cervical or vagninal specime n microscopic examination by cytology stain (reported asOrdered By: Harriet Grant on 07-08-2023 Cytology report Cyto stain Doc (Cvx/Vag) Comment . [facility] Comment on above: The Pap smear is a s creening test designed to aid in thedetection of premalignant and malignant conditions of theuterine cervix. It is not a diagnostic procedure andshould not be used as the sole means of detecting cervicalcancer. Both false-positive and false-negative reports dooccur. Detection in cervical specim en of any of human papilloma virus (HPV) 16, 18, 31, 33,Ordered By: Harriet Grant on 07-08-2023 HPV 16+18+31+33+35+39+45+5 1+52+56+58+59+66+68 DNA Probe+sig amp Ql (Cvx) Negative Negative [facility] Comment on above: This nucleic acid am plification test detects fourteen high- risk HPV types (16,18,31,33,35,39,45,51,52,56,58,59,66,68)without differentiation. Laboratory - CytologyOrdered By: Harriet Grant on 07-08-2023 Sales Representative Consultant Cyto stain Nom (Cvx/Vag) [ID] Comment . [facility] Comment on above: Yee Mcrae, Cytot echnologist (ASCP) Pathologist Cyto stain Nom (Cvx/Vag) [ID] Comment . [facility] Comment on above: Macey Jin MD, Pa thologist Recommended follow-up Cyto stain Nom (Cvx/Vag) Comment . [facility] Comment on above: Suggest follow up as clinically appropriate. Laboratory - Miscellaneous t estsOrdered By: Harriet Grant on 07-08-2023 Service comment (Unsp spec) [Interp] Comment . [facility] Comment on above: This liquid based Th inPrep(R) pap test was screened withthe use of an image guided system. Service comment (Unsp spec) [Interp] . . [facility] Liquid-based cerv Pap + CT/G C by JOANA w reflex to high-risk HPV for ASCUSOrdered By: Harriet Grant on 07-08-2023 Cytology report Cyto stain.thin prep Doc (Cvx/Vag) Comment . [facility] Comment on above: Criteria not met, HP V Genotype not performed.Performed at: [facility] - [facility] [id number] Director: Ryena Quarles MD, Phone: [phone] at: =[facility] - [facility] [address] [id number] Director: Reyna Quarles MD, Phone: [phone] No Panel InformationOrdered By: Harriet Grant on 07-08-2023 Follicle Stimulating Hormone 38.1 mIU/mL [facility] Comment on above: NORMAL REFERENCE RAN GES FEMALE FOLLICULAR 2.3 - 12.6 mIU/mL MID-CYCLE PEAK 5.2 - 17.5 mIU/mL LUTEAL 1.7 - 12.9 mIU/mL POST-MENOPAUSAL ON MHT 5.9 - 72.8 mIU/mL NOT ON MHT 12.7 - 132.2 mlU/mL MALE 0.7 - 10.8 mIU/mL Luteinizing Hormone 53.4 mIU/mL [facility] Comment on above: NORMAL REFERENCE RAN GES FEMALE FOLLICULAR 1.9 - 26.2 mIU/mL MID-CYCLE PEAK 22.8 - 76.1 mIU/mL LUTEAL 0.6 - 16.6 mIU/mL POST-MENOPAUSAL ON MHT 1.1 - 52.4 mIU/mL NOT ON MHT 8.6 - 61.8 mIU/mL MALE 1.2 - 10.6 mIU/mL Thyroid Stimulating Hormone (TSH) 1.34 uIU/mL 0.358-3.74 [facility] Pathology report final diagnosis Narrative Comment . [facility] Comment on above: EPITHELIAL CELL ABNO RMALITY.LOW GRADE SQUAMOUS INTRAEPITHELIAL LESION (LSIL). R87.612 Serum or plasma estradiol (E 2) measurement (mass/volume)Ordered By: Harriet Grant on 07-08-2023 E2 [Mass/Vol] 47.6 pg/mL [facility] Comment on above: NORMAL REFERENCE RAN GES FEMALE FOLLICULAR 21.4 - 164.8 pg/mL MID-CYCLE PEAK 49.9 - 367.2 pg/mL LUTEAL 40.2 - 259.0 pg/mL POST-MENOPAUSAL ON MHT <11.0 - 462.1 pg/mL NOT ON MHT <11.0 - 58.3 pg/mL MALE <11.0 - 52.5 pg/mL NOTE:[employer] HAS CONFIRMED THE DRUG FULVETRANT (FASLODEX) MAY CAUSE FALSELY ELEVATED ESTRADIOL RESULTS WHEN USING THIS TEST METHOD. IF PATIENT IS TAKING FULVESTRANT AN ALTERNATIVE METHOD SHOULD BE USED TO DETERMINE ESTRADIOL CONCENTRATION. Serum or plasma progesterone measurement (mass/volume)Ordered By: Harriet Grant on 07-08-2023 Progesterone [Mass/Vol] 0.67 ng/mL See Comment [facility] Comment on above: Progesterone Referen ce Table: UNITS Female: Follicular 0.15 - 1.40 ng/mL Luteal 3.34 - 25.56 ng/mL Mid-luteal 4.44 - 28.03 ng/mL Postmenopausal 0.0 - 0.73 ng/mL : 1st Trimester 11.22 - 90.00 ng/mL 2nd Trimester 25.55 - 89.40 ng/mL 3rd Trimester 48.40 -422.50 ng/mL Serum or plasma prolactin me asurement (mass/volume)Ordered By: Harriet Grant on 07-08-2023 Prolactin [Mass/Vol] 11.7 ng/mL [facility] Comment on above: NORMAL REFERENCE RAN GES FEMALE NON- 2.2 - 30.3 ng/mL 8.1 - 347.6 ng/mL POST-MENOPAUSAL 0.7 - 31.5 ng/mL MALE 2.5 - 17.4 ng/mL Absolute lymphocyte countOrd ered By: HEALTH ASSESSMENT on 06-13-2023 Lymphocytes Auto (Unsp spec) [#/Vol] 2.38 10*3/uL 0.83-4.51 [facility] Absolute reticulocyte countO rdered By: HEALTH ASSESSMENT on 06-13-2023 Reticulocytes (Bld) [#/Vol] 0.00 10*3/uL 0-5 [facility] Basophil percentageOrdered B y: HEALTH ASSESSMENT on 06-13-2023 Basophil percentage 3.7 mg/dL 2.5-4.9 [facility] Bilirubin [Mass/Vol] 0.40 mg/dL 0.20-1.00 [facility] Comment on above: For patients on eltr ombopag therapy, use of Dimension Aylett TBIL is not recommended. Chloride [Moles/Vol] 107 mmol/L 98-107 [facility] Cholesterol [Mass/Vol] 230 mg/dL <200 [facility] Comment on above: <200 mg/dL Desirable 200-240 mg/dL Borderline >240 mg/dL High Risk Glucose [Mass/Vol] 108 mg/dL 74-106 [facility] Comment on above: Fasting Glucose resu lt from 100 to 125 mg/dL suggests IMPAIRED HOMEOSTASIS per A.D.A. criteria. LDH [Catalytic activity/Vol] 201 U/L 84-246 [facility] Neutrophils (Bld) [#/Vol] 6.3 10*3/uL 2.0-7.7 [facility] Potassium [Moles/Vol] 4.1 mmol/L 3.5-5.1 [facility] Protein [Mass/Vol] 7.6 g/dL 6.4-8.2 [facility] Sodium [Moles/Vol] 139 mmol/L 136-145 [facility] Triglyceride [Mass/Vol] 189 mg/dL <199 [facility] Comment on above: The drugs N-Acetylcy steine and Metamizole may falsely depress this assay.Serum Triglycerides Reference Interval Normal <150 mg/dL Borderline high 150 - 199 mg/dL High 200 - 499 mg/dL Very High > or = 500 mg/dL WBC (Bld) [#/Vol] 9.6 10*3/uL 4.4-11.0 [facility] Blood erythrocytes count (nu mber/volume)Ordered By: HEALTH ASSESSMENT on 06-13-2023 RBC (Bld) [#/Vol] 4.81 10*6/uL 4.2-5.4 [facility] Blood hemoglobin measurement (mass/volume)Ordered By: HEALTH ASSESSMENT on 06-13-2023 Hemoglobin (Bld) [Mass/Vol] 15.6 g/dL 12.0-15.0 [facility] Blood platelet mean volumeOr dered By: HEALTH ASSESSMENT on 06-13-2023 Platelet mean volume (Bld) [Entitic vol] 10.2 fL 6.2-12.0 [facility] Determination of erythrocyte mean corpuscular volume (MCV)Ordered By: HEALTH ASSESSMENT on 06-13-2023 MCV (RBC) [Entitic vol] 96.5 fL 81-99 [facility] Direct bilirubinOrdered By: HEALTH ASSESSMENT on 06-13-2023 Bilirubin.direct [Mass/Vol] 0.08 mg/dL 0.00-0.30 [facility] Hematocrit Auto (Bld) [Volum e fraction]Ordered By: HEALTH ASSESSMENT on 06-13-2023 Hematocrit (Bld) [Volume fraction] 46.4 % 37-47 [facility] Laboratory - Chemistry and C hemistry - challengeOrdered By: HEALTH ASSESSMENT on 06-13-2023 ALP [Catalytic activity/Vol] 59 U/L 45-117 [facility] ALT [Catalytic activity/Vol] 23 U/L 13-56 [facility] Cholesterol.total/Chol esterol in HDL [Mass ratio] 6.60 {ratio} [facility] CO2 [Moles/Vol] 27.0 mmol/L 21.0-32.0 [facility] Globulin (S) [Mass/Vol] 3.7 g/dL 2.2-4.2 [facility] Urea nitrogen/Creatinine [Mass ratio] 15.3 mg/mg 10-20 [facility] Laboratory - Hematology and Cell countsOrdered By: HEALTH ASSESSMENT on 06-13-2023 Erythrocyte distribution width (RBC) [Entitic vol] 40.5 fL 35.1-43.9 [facility] Erythrocyte distribution width (RBC) [Ratio] 11.4 % 11.6-14.6 [facility] MCH (RBC) [Entitic mass] 32.4 pg 27.0-32.0 [facility] Nucleated RBC/100 WBC (Bld) [Ratio] 0 % 0-5 [facility] MCHC Auto (RBC) [Mass/Vol]Or dered By: HEALTH ASSESSMENT on 06-13-2023 MCHC (RBC) [Mass/Vol] 33.6 g/dL 32-36 [facility] No Panel InformationOrdered By: HEALTH ASSESSMENT on 06-13-2023 Estimated GFR (MDRD) Amer 95 mL/min >60 [facility] Comment on above: GFR Calc Estimated GFR (MDRD) Non-Af Amer 78 mL/min >60 [facility] Comment on above: Non- GFR Calc Platelets bldOrdered By: [facility] ASSESSMENT on 06-13-2023 Platelets (Bld) [#/Vol] 251 10*3/uL 150-450 [facility] Segmented neutrophils/100 WB C Auto (Bld)Ordered By: HEALTH ASSESSMENT on 06-13-2023 Segmented neutrophils/100 WBC (Bld) 65.8 % 47-70 [facility] Serum or plasma albumin bran urement (mass/volume)Ordered By: HEALTH ASSESSMENT on 06-13-2023 Albumin [Mass/Vol] 3.9 g/dL 3.2-5.0 [facility] Serum or plasma albumin/glob ulin mass ratioOrdered By: HEALTH ASSESSMENT on 06-13-2023 Albumin/Globulin [Mass ratio] 1.1 {ratio} 0.9-2.4 [facility] Serum or plasma calcium bran urement (mass/volume)Ordered By: HEALTH ASSESSMENT on 06-13-2023 Calcium [Mass/Vol] 9.1 mg/dL 8.5-10.1 [facility] Serum or plasma cholesterol in HDL measurement (mass/volume)Ordered By: HEALTH ASSESSMENT on 06-13-2023 Cholesterol in HDL [Mass/Vol] 35 mg/dL >40 [facility] Comment on above: The drugs N-Acetylcy steine and Metamizole may falsely depress this assay. Reference Range HDL <40 mg/dL Low HDL Cholesterol HDL >or= 60 mg/dL High HDL Cholesterol Serum or plasma cholesterol in VLDL measurement (mass/volume)Ordered By: HEALTH ASSESSMENT on 06-13-2023 Cholesterol in VLDL [Mass/Vol] 38 mg/dL 5-40 [facility] Serum or plasma creatinine m easurement (mass/volume)Ordered By: HEALTH ASSESSMENT on 06-13-2023 Creatinine [Mass/Vol] 0.85 mg/dL 0.55-1.02 [facility] Comment on above: The validity of the calculated GFR & GFRAA in patients over 70 years has not been determined. Clinical correlation is essential. Serum or plasma low density lipoprotein (LDL) cholesterol measurement (mass/volume)Ordered By: HEALTH ASSESSMENT on 06-13-2023 Cholesterol in LDL [Mass/Vol] 157 mg/dL 0-130 [facility] Serum or plasma urea nitroge n measurement (mass/volume)Ordered By: HEALTH ASSESSMENT on 06-13-2023 Urea nitrogen [Mass/Vol] 13 mg/dL 7-18 [facility] Serum or plasma uric acid me asurement (mass/volume)Ordered By: HEALTH ASSESSMENT on 06-13-2023 Urate [Mass/Vol] 4.5 mg/dL 2.6-6.0 [facility] Comment on above: The drugs N-Acetylcy steine and Metamizole may falsely depress this assay. Thin prep Papanicolaou smear with manual screeningOrdered By: HEALTH ASSESSMENT on 06-13-2023 Thin prep Papanicolaou smear with manual screening 18 U/L 15-37 [facility] Thin prep Papanicolaou smear with manual screening 5 5-15 [facility] MSCon 08-22-2017 [facility] DATE OF SERVICE: 08/22/2017REASON FOR VISIT: Cough, congestion, chest discomfort.HISTORY OF PRESENT ILLNESS: This is a 37-year-old female presenting with cough,congestion, chest discomfort, and wheezing for the last nearly 10 days. She hasunderlying asthma and has been using her aerosol treatment at home, but not gettingbetter. She has been tight in her chest.Review of other systems is normal.PAST MEDICAL HISTORY, FAMILY HISTORY, SOCIAL HISTORY: Reviewed.ALLERGIES: No known allergies.MEDICATIONS: Reviewed.PHYSICAL EXAMINATION:General: She is awake, alert, not in distress. No dyspnea.Vital signs: Temperature 98.7, blood pressure 150/99, pulse 94, respirations 18,pulse oximetry 97% on room air. Pain scale 0/10.HEENT: Unremarkable.Chest: Generalized rhonchi on both lungs with wheezing on both lungs.Heart: Regular rate and rhythm.ASSESSMENT: Acute bronchitis with asthma.PLAN: Clinical findings were discussed with the patient in detail. I gave heralbuterol and Atrovent aerosol treatment today, following which she feels muchimproved. Her wheezing decreased. Her pulse oximetry after treatment was 98% onroom air. I gave her Z-Mohsen and Medrol Dosepak as directed, one pack each with norefills, and albuterol 2.5 mg 3 mL to do aerosol treatments at home every 4 hours asneeded, one box with no refills. She can follow with her family doctor. If she getsworse, she is to go to the ER. She should maintain hydration. Tylenol as needed andcough medicine if needed. The patient understands and agrees. Her questions wereanswered to her satisfaction. DOMO Proctor/[id number]: 08/22/2017 18:03DT: 08/23/2017 11:37SSI File#: [id number] #: [id number]/Reviewed by12/30/17 1[address] [facility] PATIENT NAME: VEGA HENSLEY [id number] [facility] [address] MEDICAL REC #: [id number], [place] [address] [facility] REPORT [facility] PHYSICIAN Normal [facility] [place] Encounters Encounter Date Encounter Type Care Provider Facility Start: 05-22-2025 ambulatory Karen Ferris NP Facil ity:[facility] Start: 12-06-2024 End: 12-06-2024 ambulatory Marcus Blum Facility:[facility] Start: 11-29-2024 ambulatory Marcus Viktoria Facility: [facility] Start: 09-26-2024 End: 09-26-2024 ambulatory Karenrocky Bells [employer] Facility:[facility] Start: 09-10-2024 Encounter for gynecological examination (general) (routine) with abnormal findings Karen Bells [employer] [facility] Start: 09-10-2024 End: 09-10-2024 ambulatory Marcus Viktoria Facility:[facility] Start: 09-10-2024 End: 09-10-2024 ambulatory Karen Bells [employer] Facility:[facility] Start: 08-06-2024 End: 08-10-2024 ambulatory MARCUS BLUM DO Facility:[facility] Start: 07-04-2024 ambulatory Health Risk Assessment Facility:[facility] Start: 07-29-2023 End: 07-29-2023 ambulatory [facility] Work Phone: Start: 07-29-2023 End: 07-29-2023 Patient encounter procedure [facility]-Outpatient Breast Imaging Work Phone: Start: 07-08-2023 End: 07-08-2023 ambulatory [facility] Work Phone: Start: 07-08-2023 End: 07-08-2023 Patient encounter procedure [facility]-Laboratory, Specimen Work Phone: Start: 06-13-2023 Registered Referred [facility] Start: 08-22-2017 Ambulatory Seth Cabrera Facility: [facility] Procedures Date Procedure Procedure Detail Performing Clinician Start: 07-29-2023 Screening mammography Plan of Treatment Date Care Activity Detail Author Path report.final Dx Spec [facility] Immunizations Immunization Date Immunization Notes Care Provider Fa cility 08-30-2022 influenza, injectabl e, quadrivalent, preservative free [facility] 08-30-2022 influenza, seasonal, injectable [facility] 09-30-2021 Covid (Moderna) [facility] 09-02-2021 influenza, injectabl e, quadrivalent, preservative free [facility] 09-02-2021 influenza, seasonal, injectable [facility] 12-29-2020 Covid (Moderna) [facility] 12-01-2020 Covid (Moderna) [facility] 09-15-2020 influenza, injectabl e, quadrivalent, preservative free [facility] 09-15-2020 influenza, seasonal, injectable [facility] 09-27-2019 influenza, injectabl e, quadrivalent, preservative free [facility] 09-27-2019 influenza, seasonal, injectable [facility] 08-14-2018 influenza, injectabl e, quadrivalent, preservative free [facility] 08-14-2018 influenza, seasonal, injectable [facility] 09-21-2017 influenza, injectabl e, quadrivalent, preservative free [facility] 09-21-2017 influenza, seasonal, [facility] 08-26-2016 influenza, injectabl e, quadrivalent, preservative free [facility] 08-26-2016 influenza, seasonal, [facility] 09-23-2015 influenza, injectabl e, quadrivalent, preservative free [facility] 09-23-2015 influenza, seasonal, injectable [facility] 09-02-2014 influenza, injectabl e, quadrivalent, preservative free [facility] 09-02-2014 influenza, seasonal, [facility] 09-27-2013 Influenza virus vaccine [facility] Payers Date Payer Category Payer Self-pay [id number] 2024 Unknown [id number] 2013 Unknown [id number] 1980 Unknown [id number] 2.16.8 [id number] Unknown [id number] 2.16.8 [id number] Unknown [id number] [id number] Unknown [id number] 2.16.8 [id number] Unknown [id number] 2.16.8 [id number] Unknown [id number] 2.16.8 [id number] Unknown [id number] 2.16.8 [id number] Unknown [id number] 2.16.8 [id number] Social History Date Type Detail Facility Start: [facility]17-[facility] Start: 1980 Sex Assigned At Female [facility] Clinical Note 07-08-2023 Note Date & Type Note Facility 07-08-2023 Note [facility] Pap Smear Specimen Adequacy July 08, 2023 11:08am Comment . Satisfactory for evaluation. Endocervical and/or squamous metaplasticcells (endocervical component) are present. Comment on above: Satisfactory for evie luation. Endocervical and/or squamous metaplasticcells (endocervical component) are present. 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 Marcus Blum DO Primary Care Provider Active Team Status: Inactive Member Role Status Dates Dr. Marcus Blum , DO Primary Care Provider Active Dr. Harriet Grant , DO Attending Provider Active Team Status: Active Member Role Status Dates Dr. Marcus Blum , DO Primary Care Provider Active Health Risk Assessment Attending Provider, Rosita moore Active Team Status: Inactive Member Role Status Dates Dr. Marcus Blum , DO Primary Care Provider Active Dr. Harriet Grant , DO Attending Provider, La kendrick Provider Active Goals (unrecognized section and content) Goals may be documented in a n alternate sectionGoals may be documented in an alternate section FOR RECORDS PERTAINING TO PATIENTS WHO ARE OR HAVE BEEN ENROLLED IN A CHEMICAL DEPENDENCY/SUBSTANCEABUSE PROGRAM, SOME INFORMATION MAY BE OMITTED. This clinical summary was aggregated from multiple sources. Caution should be exercised in using it in the provision of clinical care. This summary normalizes information from multiple sources, and as a consequence, information in this document may materially change the coding, format and clinical context of patient data. In addition, data may be omitted in some cases. CLINICAL DECISIONS SHOULD BE BASED ON THE PRIMARY CLINICAL RECORDS. [facility] [employer] provides no warranty or guarantee of the accuracy or completeness of information in this document.
== END | disposition home or self-care (01) ==
LOC: OPMRI 12:33
PROVIDERS: PCP Family Medicine; Referring Provider Nurse Practitioner Women's Health; Visit Provider Nurse Practitioner Women's Health
DX: R92.30 Dense breasts, unspecified (principal); Z80.3 Family history of malignant neoplasm of breast
CPT/HCPCS: 77049; A9575; A4216; C8908

== ENCOUNTER → 2025-09-11 | Outpatient (CLI) | payer OTHER, SELFPAY ==
[2025-09-18 16:09] LABS: HPV APTIMA, High Risk Positive (Negative)
== END | disposition home or self-care (01) ==
LOC: LABSPEC 16:27
PROVIDERS: PCP Family Medicine; Visit Provider Nurse Practitioner Women's Health
DX: Z12.4 Encounter for screening for malignant neoplasm of cervix (principal)
CPT/HCPCS: 87624; 88175; G0145

== ENCOUNTER → 2025-10-07 | Outpatient (CLI) | payer OTHER, SELFPAY ==
--- NOTE | 2025-10-07 13:20 | CER_PTH ---
PATIENT: VEGA HENSLEY LOC: [facility] U#:[id number] AGE/SX: 45/F ROOM: RE10/07/[address]: Dr. Jana Martinez DO : 1980 BED: DIS: 10/07/2025 SPEC #: [id number] RECD: 10/07/25 17:09 STATUS: RADHA MIKA #: [id number] GERARDO: 10/07/25 13:[address]: Jana Martinez DEPT: SURGICAL PATHOLOGY RECD BY: Benjamin Phillips ENTERED: 10/08/25 10:16 SP TYPE: CERV OTHR DR: Dr. Jozef Sauceda DO Tissues: A - Endocervical B - Uterine cervix, NOS Procedures: Surgery Specimen Level IV HEADER OPERATION: Colposcopy PRE-OP DIAGNOSIS: LGSIL, + HPV TISSUE SUBMITTED: A- ECC, B- 12o'clock MICROSCOPIC DIAGNOSIS A. Endocervix, curettage: - HPV cytopathic effect (low grade YANICK). B. Cervix, 12 o'clock, biopsy: - Squamous metaplasia. - Negative for HPV or dysplasia. MICROSCOPIC DESCRIPTION Slides are reviewed. GROSS DESCRIPTION Received in 2 formalin containers labeled with the patient's name and date of . Designated as: A. ECC is a brush containing cloudy mucoid material, 1.3 x 1.2 x 0.1 cm in aggregate. Entirely submitted in 1 cassette. Entirety of the specimen unlikely to survive processing. B. 12:00 is a 0.4 x 0.3 x 0.2 cm milton-white tissue fragment. Entirely submitted in 1 cassette. PR 10/08/2025 CPT:[id number]
--- OUTSIDE RECORDS SUMMARY | 2025-10-07 19:25 | XMS RPT_ITS | CCD ---
Author Organization [facility] Care Team Providers Care Outside Sales Associate Name Role Phone Seth Cabrera Unavailable Unavailable Dr. Marcus Blum DO Primary Care Provider Josy PROGRAM ADVOCATE-C, Karen Attending Provider [phone] Josy PROGRAM ADVOCATE-C, Karen Referring Provider MARCUS BLUM DO Primary Care Unavailable MATTIE RODRIGUEZ-ALBERTO GOMEZ Attending Unava ilable MARCUS BLUM DO Attending Unavailable MARCUS BLUM DO Primary Care Unavailable Dr. Marcus Blum DO Primary Care Physician [phone] Assessment, Health Risk Attending Physician Unav ailable Assessment, Health Risk Referring Provider Unava ilable Dr. Marcus Blum DO Referring Provider Josy PROGRAM ADVOCATE-CKaren Attending Physician [phone] Marcus Blum Referring Unavailable Jana Martinez Attending Unavailabl e Marcus Blum Primary Care Unavailable Marcus Blum Referring Unavailable Josy PROGRAM ADVOCATEKaren Attending Unavailable Marcus Blum Primary Care Unavailable Josy PROGRAM ADVOCATEKaren Attending Unavailable Marcus Blum Primary Care Unavailable Marcus Blum Primary Care Unavailable Assessment, Health Risk Referring Unavaila ble Assessment, Health Risk Attending Unavaila ble Josy PROGRAM ADVOCATE, Karen Referring Unavailable Marcus Blum Primary Care Unavailable Josy PROGRAM ADVOCATE, Karen Attending Unavailable Marcus Blum Primary Care Unavailable UMBERTO KEVDavid Referring Unavailable PAM SHIPMAN Attending Unavailable Marcus Blum Primary Care Unavailable Josy PROGRAM ADVOCATE, Karen Attending Unavailable [place] PROGRAM ADVOCATE, Karen Referring Unavailable Marcus Blum Primary Care Unavailable Josy PROGRAM ADVOCATE, Karen Attending Unavailable [place] PROGRAM ADVOCATE, Karen Referring Unavailable Marcus Blum Primary Care Unavailable Andrews Pizano Referring Unavailable Andrews Piznao Attending Unavailable Medications Current Medications Medication Drug Class(es) Dates Sig (Normalized) Sig (Original) acetaminophen 325 mg / HYDROcodone bitartrate 5 mg oral tablet (2 sources) Opioid Agonist Start: 12-06-2024 take 1 tablet by mouth every six hours as needed for pain [id number] actuat albuterol 0.09 mg/actuat metered dose inhaler (4 sources) beta2-Adrenergic Agonist Start: 10-23-2014 Start: 10-23-2014 Albuterol Sulf ate 1 INHALER inhaler Active 1 - 2 NMA INHALATION EVERY 4 HOURS NEEDED as needed for Wheezing October 23, 2014 1:00am Start: 10-23-2014 take 1 puff(s) by in halation every four hours as needed Albuterol Sulfate Active 1 - 2 PUFF INHALATION EVERY 4 HOURS NEEDED October 23, 2014 1:00am Flaxseed extract (2 sources) Non-Standardized Food Allergenic Extract , Non-Standardized Plant Allergenic Extract Start: 09-10-2024 Start: 09-10-2024 flax seed Acti ve 2 {tbl} PO DAILY September 10, 2024 12:00am Multivitamin tablet (2 sources) Start: 09-10-2024 Start: 09-10-2024 Multivitamin t ablet Active 2 {tbl} PO EVERY MORNING September 10, 2024 12:00am Completed/Discontinued Medications Medication Drug Class(es) Dates Sig (Normalized) Sig (Original) acetaminophen 325 mg / oxyCODONE hydrochloride 5 mg oral tablet (4 sources) Opioid Agonist Start: 10-28-2014 End: 11-17-2017 Oxycodone-Acetamino phen 1 TABLET tablet Discontinued 1 - 2 {tbl} PO EVERY 4 HOURS NEEDED as needed for Abdominal Pain October 28, 2014 1:00am November 17, 2017 3:41pm Start: 10-28-2014 End: 11-17-2017 take 1 tablet by mouth every four hours as needed Oxycodone-Acetaminophen Discontinued 1 - 2 TABLET PO EVERY 4 HOURS NEEDED October 28, 2014 1:00am November 17, 2017 3:41pm amoxicillin 500 mg oral capsule (4 sources) Penicillin-class Antibacterial Start: 11-17-2017 End: 11-27-2017 take 2 capsules by mouth twice daily Amoxicillin 500 mg capsule Discontinued 1000 mg PO TWICE A DAY 40 10 November 17, 2017 1:00am November 26, 2017 1:00am November 27, 2017 1:06am Start: 11-17-2017 End: 11-27-2017 take 1000 mg by mouth twice daily Amoxicillin Discontinued 1000 MG PO TWICE A DAY 40 November 17, 2017 1:00am November 27, 2017 1:06am chondroitin sulfates 400 mg / glucosamine sulfate 500 mg oral tablet (2 sources) Start: 09-10-2024 End: 11-30-2024 Glucosamine Martinez 2kcl-Chondroit 500-400 mg tablet Discontinued {tbl} PO September 10, 2024 12:00am November 30, 2024 9:15am ethinyl estradiol 0.02 mg / norethindrone acetate 1 mg oral tablet (4 sources) Estrogen Start: 10-23-2014 End: 11-17-2017 Norethindrone Ac-Eth Estradiol 1 EACH tablet Discontinued 1 NMA PO DAILY October 23, 2014 1:00am November 17, 2017 3:43pm Start: 10-23-2014 End: 11-17-2017 Norethindrone Ac-Eth Estradi ol Discontinued 1 EACH PO DAILY October 23, 2014 1:00am November 17, 2017 3:43pm ibuprofen 800 mg oral tablet (4 sources) Nonsteroidal Anti-inflammatory Drug Start: 10-28-2014 End: 11-17-2017 take 1 tablet by mouth three times daily as needed for pain Ibuprofen 800 MG tablet Discontinued 800 mg PO 3 TIMES DAILY NEEDED as needed for Abdominal Pain 60 October 28, 2014 1:00am November 17, 2017 3:41pm labetalol hydrochloride 100 mg oral tablet (4 sources) beta-Adrenergic Rubina Start: 10-23-2014 End: 11-17-2017 take 1 tablet by mouth once daily Labetalol 100 MG tablet Discontinued 100 mg PO DAILY October 23, 2014 1:00am November 17, 2017 3:41pm Multivitamin With Folic Acid (2 sources) Start: 10-23-2014 End: 11-17-2017 take 1 tablet by mouth once daily Multivitamin With Folic Acid Discontinued 1 TABLET PO DAILY October 23, 2014 1:00am November 17, 2017 3:43pm Multivitamin With Folic Acid 1 TABLET tablet (2 sources) Start: 10-23-2014 End: 11-17-2017 take 1 tablet by mouth once daily Multivitamin With Folic Acid 1 TABLET tablet Discontinued 1 {tbl} PO DAILY October 23, 2014 1:00am November 17, 2017 3:43pm [place]-3 Fatty Acids-Fish Oil (2 sources) Start: 10-23-2014 End: 11-17-2017 [place]-3 Fatty Acids-Fish Oil Discontinued 1 EACH PO DAILY October 23, 2014 1:00am November 17, 2017 3:43pm [place]-3 Fatty Acids-Fish Oil 1 EACH capsule (2 sources) Start: 10-23-2014 End: 11-17-2017 [place]-3 Fatty Acids-Fish Oil 1 EACH capsule Discontinued 1 NMA PO DAILY October 23, 2014 1:00am November 17, 2017 3:43pm Problems Active Problems Problem Classification Problem Date Documented Date Episodic/Chronic Asthma (2 sources) Asthma; Translations: [Unspecified asthma, uncomplicated] Onset: 11-28-1991 11-30-2024 Chronic Comment on above: INHALER PRN Cancer of cervix (1 source) Low grade squamous intraepithelial lesion on cervical Papanicolaou smear; Translations: [Low grade squamous intraepithelial lesion on cytologic smear of cervix (LGSIL)] 09-19-2025 Episodic Comment on above: can not rule out HGS IL, + HPV Menopausal disorders (2 sources) Menopausal syndrome; Translations: [Menopausal and female climacteric states] 09-10-2024 Chronic Comment on above: FSH, estradiol:if no t menopausal needs provera challenge Other ear and sense organ disorders (4 sources) Impacted cerumen; Translations: [Impacted cerumen, unspecified ear] 11-17-2017 Episodic Other screening for suspected conditions (not mental disorders or infectious disease) (4 sources) Encounter for screening mammogram for malignant neoplasm of breast; Translations: [Encounter for other screening for malignant neoplasm of breast] Onset: 09-11-2025 Episodic Other upper respiratory infections (4 sources) Pharyngitis; Translations: [Acute pharyngitis, unspecified] 11-17-2017 Episodic Residual codes; unclassified (2 sources) History of loop electrosurgical excision procedure; Translations: [Other specified postprocedural states] 09-10-2024 Episodic Comment on above: 2014 LORRAINE 2-3. Paps n egative until LGSIL 2022. 2023: 2014 LORRAINE 2-3. Paps n egative until LGSIL 2022. 2023:neg pap/HPV. 2024:LGSIL can not rule out HGSIL, + HPV Residual codes; unclassified (2 sources) Family history of malignant neoplasm of breast in first degree relative; Translations: [Family history of malignant neoplasm of breast] 09-24-2024 Episodic Comment on above: Empower genetic scre en:negative for genetic variant. With mother's history her risk is 27% lifetime risk. Enc at age 42: mammogram and MRI alternately every 6 m o. Unclassified (1 source) Unknown / UNK(Unknown) Onset: 08-22-2017 Unclassified (1 source) Dense breasts, unspecified; Translations: [Dense breasts, unspecified] Onset: 05-27-2025 Past or Other Problems Problem Classification Problem Date Documented Da te Episodic/Chronic Asthma (1 source) Asthma Onset: 08-22-2017 Cardiac dysrhythmias (1 source) Palpitations; Translations: [Palpitations] Onset: 06-12-2025 Episodic Other and unspecified benign neoplasm (2 sources) Other benign neoplasm of skin, unspecified; Translations: [Other benign neoplasm of skin, unspecified] Onset: 08-06-2024 Episodic Other connective tissue disease (1 source) Trigger thumb, right thumb; Translations: [Trigger thumb, right thumb] Onset: 12-28-2024 Episodic Residual codes; unclassified (1 source) Family history of malignant neoplasm of breast; Translations: [Family history of malignant neoplasm of breast] Onset: 11-30-2024 Episodic Results Test Name Value Interpretation Reference Range Facility PAP IG HPV APTIMA 16/18,45on 09-18-2025 ADEQ Comment Normal . [facility] Comment on above: Order Comment: Speci men Comment: [id number] Specimen Comment: No. of containers..01 ThinPrep Vial Result Comment: Sati sfactory for evaluation. Endocervical and/or squamous metaplastic cells (endocervical component) are present. Performed By: #### L 7400.0280 #### [facility] [address] [place], [address] COMM . Normal . [facility] Comment on above: Order Comment: Speci men Comment: [id number] Specimen Comment: No. of containers..01 ThinPrep Vial Performed By: #### L 7400.0280 #### [facility] [address] [place], [place], [address] COMMENT Comment Normal . [facility] Comment on above: Order Comment: Speci men Comment: [id number] Specimen Comment: No. of containers..01 ThinPrep Vial Result Comment: This liquid based ThinPrep(R) pap test was interpreted using the PriceArea(R) Genius(TM) Cervical Algorithm whole slide imaging system. Performed By: #### L 7400.0280 #### [facility] [address] [place], [place], [id number] DIAG Comment Abnormal . [facility] Comment on above: Order Comment: Speci men Comment: [id number] Specimen Comment: No. of containers..01 ThinPrep Vial Result Comment: EPIT HELIAL CELL ABNORMALITY. LOW GRADE SQUAMOUS INTRAEPITHELIAL LESION (LSIL). ATYPICAL SQUAMOUS CELLS, CANNOT EXCLUDE HIGH-GRADE SQUAMOUS INTRAEPITHELIAL LESION (ASC-H). Performed By: #### L 7400.0280 #### [facility] [address] [place], [place], [id number] HPV APTIMA, HR Positive Abnormal Negative [facility] Comment on above: Order Comment: Speci men Comment: [id number] Specimen Comment: No. of containers..01 ThinPrep Vial Result Comment: This nucleic acid amplification test detects fourteen high- risk HPV types (16,18,31,33,35,39,45,51,52,56,58,59,66,68) without differentiation. Performed By: #### L 7400.0280 #### [facility] [address] [place], [place], [id number] HPV Candie Rfx Comment Normal . [facility] Comment on above: Order Comment: Speci men Comment: [id number] Specimen Comment: No. of containers..01 ThinPrep Vial Result Comment: Crit eria not met, HPV Genotype not performed. Performed at: - [address] [id number] Medical Instrument Cable Fabricator: Reyna Quarles MD, Phone: [phone] Performed at: = - [facility] [id number] Medical Instrument Cable Fabricator: Reyna Quarles MD, Phone: [phone] Performed By: #### L 7400.0280 #### [facility] [address] [place], [place], [id number] PAPSMR Comment Normal . [facility] Comment on above: Order Comment: Speci men Comment: [id number] Specimen Comment: No. of containers..01 ThinPrep Vial Result Comment: The Pap smear is a screening test designed to aid in the detection of premalignant and malignant conditions of the uterine cervix. It is not a diagnostic procedure and should not be used as the sole means of detecting cervical cancer. Both false-positive and false-negative reports do occur. Performed By: #### L 7400.0280 #### [facility] [address] [place], [place], [id number] Path.prov.IDC-9 Comment Normal . [facility] Comment on above: Order Comment: Speci men Comment: [id number] Specimen Comment: No. of containers..01 ThinPrep Vial Result Comment: R87. 612, R87.611 Performed By: #### L 7400.0280 #### [facility] [address] [place], [place], [id number] PERFORM Comment Normal . [facility] Comment on above: Order Comment: Speci men Comment: [id number] Specimen Comment: No. of containers..01 ThinPrep Vial Result Comment: Nakita Duarte [facility] [employer] (ASCP) Performed By: #### L 7400.0280 #### [facility] [address] [place], [place], [address] SIGN Comment Normal . [facility] Comment on above: Order Comment: Speci men Comment: [id number] Specimen Comment: No. of containers..01 ThinPrep Vial Result Comment: Angelito Matthews MD, Pathologist Performed By: #### L 7400.0280 #### [facility] [address] [place], [place], [address] Cervical or vaginal specimen microscopic examination by liquid based cytology (reportOrdered By: Karen Ferris on 09-11-2025 Cytology report Cyto stain.thin prep Doc (Cvx/Vag) Comment . [facility] Comment on above: Criteria not met, HP V Genotype not performed.Performed at: [facility] [address] [id number] Director: Reyna Quarles MD, Phone: [phone] at: =[facility] [id number] Director: Reyna Quarles MD, Phone: [phone] Cervical or vagninal specime n microscopic examination by cytology stain (reported asOrdered By: Karen Ferris on 09-11-2025 Cytology report Cyto stain Doc (Cvx/Vag) Comment . [facility] Comment on above: The Pap smear is [...] virus (HPV) 16, 18, 31, 33,Ordered By: Karen Ferris on 09-11-2025 HPV 16+18+31+33+35+39+45+51+ 52+56+58+59+66+68 DNA Probe+sig amp Ql (Cvx) Positive High Negative [facility] Comment on above: This nucleic acid am plification test detects fourteen high-risk HPV types (16,18,31,33,35,39,45,51,52,56,58,59,66,68)without differentiation. Laboratory - CytologyOrdered By: Karen Ferris on 09-11-2025 [facility] Cyto stain Nom (Cvx/Vag) [ID] Comment . [facility] Comment on above: Jonah Arnold logist (ASCP) Pathologist Cyto stain Nom (Cvx/Vag) [ID] Comment . [facility] Comment on above: Bernice Matthews MD, P athologist Laboratory - Miscellaneous t estsOrdered By: Karen Ferris on 09-11-2025 Service comment (Unsp spec) [Interp] . . [facility] No Panel InformationOrdered By: Karen Ferris on 09-11-2025 Pap Smear Specimen Adequacy Comment . [facility] Comment on above: Satisfactory for evie luation. Endocervical and/or squamous metaplasticcells (endocervical component) are present. Pathology report final diagnosis Narrative Comment . [facility] Comment on above: R87.612, R87.611 Casing Running Machine Tender Office Visit Reporton 09-11-2025 Casing Running Machine Tender Office Visit Report [facility] [address], [address] [place] [address] OFFICE VISIT Date of Service: 09/11/25 MR#: [id number] Acct: [id number] Name: VEGA HENSLEY Rep #: [id number] : 1980 Provider: GALDINO hernández Age/Sex: 45/F Location[place] [facility] [place] Status: Signed Intake Vital Signs 12/06/24 06:22 09/11/25 15:19 09/11/25 15:22 Height 5 ft 4 in 5 ft 4 in 5 ft 4 in Weight: 184 lb BMI 31.6 BP 118/76 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 Sprayer Required: No Is patient in pain?: No Allergies No Known Allergies Allergy (Verified 09/11/25 15:24) Medications ???Medication ???Instructions ???Recorded ???Confirmed ???Type albuterol sulfate 90 mcg/actuation 1 - 2 puff inhalation Q4H PRN WA N 10/23/14 09/11/25 History aerosol inhaler Wheezing flax seed 2 tab PO DAILY 09/10/24 09/11/25 H istory multivitamin 2 tab PO QAM 09/10/24 09/11/25 His tory hydrocodone-acetaminop hen 5-325mg 1 tab PO Q6H PRN pain 3 days #12 12/06/24 09/11/25 Rx 5mg-325mg tabs Post menopausal: No Patient : No : No PFSH Medical History Wears glasses History of steroid therapy Migraine headache Injury of head and neck Gastric reflux Smoker Gestational hypertension Hx of vaginal bleeding High blood pressure (11/28/11) Asthma (11/28/91) Surgical History History of wisdom tooth extraction S/P LEEP History of tubal ligation Family History Mother Skin cancer Cervical cancer Osteoporosis Heart disease Myocardial infarction Breast cancer COPD (chronic obstructive pulmonary disease) Hypertension Asthma Father Alcoholism Heart disease Myocardial infarction Hypertension Grandmother Heart disease Breast cancer Hypertension Social History adopted: No household members: spouse and children number of children: 2 current occupational status: employed 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 Last PAP: 2023 neg History of abnormal PAP: 2022 LGSIL. 2014 LEEP Last mammogram: 08/2024 History of abnormal mammogram: no Colon cancer screening: age 47 Other preventative health care screenings: Sohail Female Reproductive History Questions: metrorrhagia: No, sexually active: Yes, dyspareunia: No and PCB: No Date of menopause: 01/27/24 Menopausal Symptoms: No hot flashes, No night sweats, No weight change, No mood changes, No difficulty concentrating, No sleep problems and No change in libido ROS Const Constitutional: Denies night sweats : Denies hot flashes Psych Psych: Denies change in libido or difficulty concentrating Exam Const General: cooperative, healthy appearing, no acute distress and well developed Orientation: alert, oriented to person and oriented to place HENMT Head: normal to inspection Neck Neck: normal [...] deferred External Female Exam: normal external appearance (more content not included)... Normal [facility] Absolute lymphocyte countOrd ered By: HEALTH ASSESSMENT on 06-19-2025 Lymphocytes Auto (Unsp spec) [#/Vol] 2.33 10*3/uL 0.83-4.51 [facility] Absolute neutrophil countOrd ered By: HEALTH ASSESSMENT on 06-19-2025 Neutrophils (Bld) [#/Vol] 6.2 10*3/uL 2.0-7.7 [facility] Absolute nucleated red blood cell countOrdered By: HEALTH ASSESSMENT on 06-19-2025 Nucleated RBC (Bld) [#/Vol] 0.00 10*3/uL 0-5 [facility] Anion gap in Serum or Plasma Ordered By: HEALTH ASSESSMENT on 06-19-2025 Anion gap [Moles/Vol] 13 mmol/L 5-15 [facility] BUN/creatinine ratioOrdered By: HEALTH ASSESSMENT on 06-19-2025 Urea nitrogen/Creatinine [Mass ratio] 15.7 mg/mg 10-20 [facility] Bilirubin directOrdered By: HEALTH ASSESSMENT on 06-19-2025 Bilirubin.direct [Mass/Vol] 0.12 mg/dL 0.00-0.30 [facility] Bilirubin, totalOrdered By: HEALTH ASSESSMENT on 06-19-2025 Bilirubin [Mass/Vol] 0.33 mg/dL 0.00-1.30 [facility] Blood band neutrophil count as percentage of total leukocytesOrdered By: HEALTH ASSESSMENT on 06-19-2025 Band form neutrophils/100 WBC (Bld) 66.2 % 47-70 [facility] CBC, Employeeon 06-19-2025 Absolute Lymph 2.33 X10 3/uL Normal 0.83-4.51 [facility] Comment on above: Performed By: #### L 500.2900, L100.0200, L400.0100 #### [facility] [address] [place], [address] Absolute Neut 6.2 X10 3/uL Normal 2.0-7.7 [facility] Comment on above: Performed By: #### L 500.2900, L100.0200, L400.0100 #### [facility] [address] [place], [address] Basophils/100 WBC (Bld) 0.4 % Normal 0-1 [facility] Comment on above: Performed By: #### L 500.2900, L100.0200, L400.0100 #### [facility] [address] [place], [address] Eosinophils/100 WBC (Bld) 2.1 % Normal 0-5 [facility] Comment on above: Performed By: #### L 500.2900, L100.0200, L400.0100 #### [facility] [address] [place], [address] Erythrocyte distribution width (RBC) [Ratio] 11.7 % Normal 11.6-14.6 [facility] Comment on above: Performed By: #### L 500.2900, L100.0200, L400.0100 #### [facility] [address] [place], [address] Hematocrit (Bld) [Volume fraction] 46.3 % Normal 37-47 [facility] Comment on above: Performed By: #### L 500.2900, L100.0200, L400.0100 #### [facility] [address] [place], [address] Hemoglobin (Bld) [Mass/Vol] 15.6 g/dL High 12.0-15.0 [facility] Comment on above: Performed By: #### L 500.2900, L100.0200, L400.0100 #### [facility] [address] [place], [address] Lymphocytes/100 WBC (Bld) 24.9 % Normal 19-41 [facility] Comment on above: Performed By: #### L 500.2900, L100.0200, L400.0100 #### [facility] [address] [place], [address] MCH (RBC) [Entitic mass] 31.6 pg Normal 27.0-32.0 [facility] Comment on above: Performed By: #### L 500.2900, L100.0200, L400.0100 #### [facility] [address] [place], [address] MCHC (RBC) [Mass/Vol] 33.7 g/dL Normal 32-36 [facility] Comment on above: Performed By: #### L 500.2900, L100.0200, L400.0100 #### [facility] [address] [place], [address] MCV (RBC) [Entitic vol] 93.9 fL Normal 81-99 [facility] Comment on above: Performed By: #### L 500.2900, L100.0200, L400.0100 #### [facility] [address] [place], [address] Monocytes/100 WBC (Bld) 6.1 % Normal 0-10 [facility] Comment on above: Performed By: #### L 500.2900, L100.0200, L400.0100 #### [facility] [address] [place], [address] Neutrophils/100 WBC (Bld) 66.2 % Normal 47-70 [facility] Comment on above: Performed By: #### L 500.2900, L100.0200, L400.0100 #### [facility] [address] [place], [address] NRBC # 0.00 10 3/uL Normal 0-5 [facility] Comment on above: Performed By: #### L 500.2900, L100.0200, L400.0100 #### [facility] [address] [place], [address] Nucleated RBC (Bld) [#/Vol] 0 10*3/uL Normal 0-5 [facility] Comment on above: Performed By: #### L 500.2900, L100.0200, L400.0100 #### [facility] [address] [place], [address] Platelet mean volume (Bld) [Entitic vol] 10.2 fL Normal 6.2-12.0 [facility] Comment on above: Performed By: #### L 500.2900, L100.0200, L400.0100 #### [facility] [address] [place], [address] Platelets (Bld) [#/Vol] 252 10*3/uL Normal 150-450 [facility] Comment on above: Performed By: #### L 500.2900, L100.0200, L400.0100 #### [facility] [address] [place], [address] RBC (Bld) [#/Vol] 4.93 10*6/uL Normal 4.2-5.4 [facility] Comment on above: Performed By: #### L 500.2900, L100.0200, L400.0100 #### [facility] [address] [place], [address] RDW SD 40.6 fl Normal 35.1-43.9 [facility] Comment on above: Performed By: #### L 500.2900, L100.0200, L400.0100 #### [facility] [address] [place], [address] WBC (Bld) [#/Vol] 9.4 10*3/uL Normal 4.4-11.0 [facility] Comment on above: Performed By: #### L 500.2900, L100.0200, L400.0100 #### [facility] [address] [place], [address] Calculated very low density lipoprotein (VLDL) cholesterol measurementOrdered By: HEALTH ASSESSMENT on 06-19-2025 Calculated very low density lipoprotein (VLDL) cholesterol measurement 43 mg/dL High 5-40 [facility] Carbon dioxide, total [Moles /volume] in Central venous bloodOrdered By: HEALTH ASSESSMENT on 06-19-2025 CO2 [Moles/Vol] 23.7 mmol/L 21.0-32.0 [facility] Chloride assayOrdered By: HE ALTH ASSESSMENT on 06-19-2025 Chloride [Moles/Vol] 105 mmol/L 98-108 [facility] Employee Profileon Cholesterol in LDL [Mass/Vol] 173 mg/dL High 0-130 [facility] Comment on above: Performed By: #### L 500.2900, L100.0200, L400.0100 #### [facility] [address] [place], [address] Erythrocyte distribution wid th ratioOrdered By: HEALTH ASSESSMENT on 06-19-2025 Erythrocyte distribution width (RBC) [Ratio] 11.7 % 11.6-14.6 [facility] Erythrocyte distribution wid th standard deviationOrdered By: HEALTH ASSESSMENT on 06-19-2025 Erythrocyte distribution width (RBC) [Ratio] 40.6 fl 35.1-43.9 [facility] Glomerular filtration rate ( GFR) estimation/1.73 sq m using serum, plasma, or whole bOrdered By: HEALTH ASSESSMENT on 06-19-2025 GFR/1.73 sq M.predicted among non-blacks MDRD (S/P/Bld) [Vol rate/Area] 85 mL/min/{1.73_m2} >60 [facility] Comment on above: mL/min/1.73m2 CKD-EP I Creatinine Equation (2020) Hematocrit Auto (Bld) [Volum e fraction]Ordered By: HEALTH ASSESSMENT on 06-19-2025 Hematocrit (Bld) [Volume fraction] 46.3 % 37-47 [facility] Hemoglobin measurementOrdere d By: HEALTH ASSESSMENT on 06-19-2025 Hemoglobin (Bld) [Mass/Vol] 15.6 g/dL High 12.0-15.0 [facility] - Chemistry and C hemistry - challengeOrdered By: HEALTH ASSESSMENT on 06-19-2025 AST [Catalytic activity/Vol] 23 U/L <32 [facility] Lactate dehydrogenase (LDH) measurementOrdered By: HEALTH ASSESSMENT on 06-19-2025 LDH [Catalytic activity/Vol] 280 U/L High 84-246 [facility] MCV (mean corpuscular volume ) determinationOrdered By: HEALTH ASSESSMENT on 06-19-2025 MCV (RBC) [Entitic vol] 93.9 fL 81-99 [facility] Mean corpuscular hemoglobin (MCH) determinationOrdered By: HEALTH ASSESSMENT on 06-19-2025 MCH (RBC) [Entitic mass] 31.6 pg 27.0-32.0 [facility] Mean corpuscular hemoglobin concentration (MCHC) determinationOrdered By: HEALTH ASSESSMENT on 06-19-2025 MCHC (RBC) [Mass/Vol] 33.7 g/dL 32-36 [facility] Mean platelet volume determi nationOrdered By: HEALTH ASSESSMENT on 06-19-2025 Platelet mean volume (Bld) [Entitic vol] 10.2 fL 6.2-12.0 [facility] Nucleated red blood cell per centageOrdered By: HEALTH ASSESSMENT on 06-19-2025 Nucleated RBC/100 WBC (Bld) [Ratio] 0 % 0-5 [facility] Platelet countOrdered By: HE ALTH ASSESSMENT on 06-19-2025 Platelets (Bld) [#/Vol] 252 10*3/uL 150-450 [facility] Potassium measurement (mass/ volume)Ordered By: HEALTH ASSESSMENT on 06-19-2025 Potassium (Unsp spec) [Mass/Vol] 4.4 mmol/L 3.3-5.1 [facility] RBC Auto (Bld) [#/Vol]Ordere d By: HEALTH ASSESSMENT on 06-19-2025 RBC (Bld) [#/Vol] 4.93 10*6/uL 4.2-5.4 [facility] Screening total cholesterol/ high density lipoprotein (HDL) cholesterol ratioOrdered By: HEALTH ASSESSMENT on 06-19-2025 Cholesterol.total/Choles terol in HDL [Mass ratio] 6.98 {ratio} [facility] Serum creatinine measurement (mass/volume)Ordered By: HEALTH ASSESSMENT on 06-19-2025 Creatinine [Mass/Vol] 0.87 mg/dL 0.70-1.20 [facility] Serum globulin measurementOr dered By: HEALTH ASSESSMENT on 06-19-2025 Globulin (S) [Mass/Vol] 2.8 g/dL 2.2-4.2 [facility] Serum glucose measurement (m ass/volume)Ordered By: HEALTH ASSESSMENT on 06-19-2025 Glucose [Mass/Vol] 108 mg/dL High 70-99 [facility] Serum or plasma alanine grimm otransferase (ALT) measurementOrdered By: HEALTH ASSESSMENT on 06-19-2025 ALT [Catalytic activity/Vol] 17 U/L <35 [facility] Serum or plasma albumin bran urement (mass/volume)Ordered By: HEALTH ASSESSMENT on 06-19-2025 Albumin [Mass/Vol] 4.5 g/dL 3.5-5.0 [facility] Serum or plasma albumin/glob ulin mass ratioOrdered By: HEALTH ASSESSMENT on 06-19-2025 Albumin/Globulin [Mass ratio] 1.6 {ratio} 0.9-2.4 [facility] Serum or plasma alkaline stefani sphatase measurementOrdered By: HEALTH ASSESSMENT on 06-19-2025 ALP [Catalytic activity/Vol] 74 U/L 35-104 [facility] Serum or plasma calcium bran urement (mass/volume)Ordered By: HEALTH ASSESSMENT on 06-19-2025 Calcium [Mass/Vol] 10.0 mg/dL 7.6-11.0 [facility] Serum or plasma cholesterol in HDL measurement (mass/volume)Ordered By: HEALTH ASSESSMENT on 06-19-2025 Cholesterol in HDL [Mass/Vol] 36 mg/dL Low >40 [facility] Comment on above: National Cholesterol Education Program (NCEP) guidelines:<40 mg/dL: Low HDL-cholesterol (major risk factor for CHD)>= 60 mg/dL: High HDL-cholesterol (negative risk factor for CHD)HDL-cholesterol is affected by a number of factors, e.g. smoking, exercise, hormones, sex and age. Serum or plasma cholesterol in LDL measurement (mass/volume)Ordered By: HEALTH ASSESSMENT on 06-19-2025 Cholesterol in LDL [Mass/Vol] 173 mg/dL High 0-130 [facility] Serum or plasma cholesterol measurement (mass/volume)Ordered By: HEALTH ASSESSMENT on 06-19-2025 Cholesterol [Mass/Vol] 252 mg/dL High <201 [facility] Comment on above: Cholesterol level, D esirable <200 mg/dLBorderline high cholesterol 200-239 mg/dLHigh cholesterol >=240 mg/dLRecommendations of the NCEP Adult Treatment Panel for the following risk-cutoff thresholds for the [place] population. Serum or plasma urea nitroge n measurement (mass/volume)Ordered By: HEALTH ASSESSMENT on 06-19-2025 Urea nitrogen [Mass/Vol] 14 mg/dL 4-19 [facility] Serum or plasma uric acid me asurement (mass/volume)Ordered By: HEALTH ASSESSMENT on 06-19-2025 Urate [Mass/Vol] 5.6 mg/dL 2.6-6.0 [facility] Comment on above: The drugs N-Acetylcy steine and Metamizole may falsely depress this assay. Sodium levelOrdered By: HEAL ASSESSMENT on 06-19-2025 Sodium [Moles/Vol] 141 mmol/L 133-145 [facility] Total proteinOrdered By: HEA [facility] ASSESSMENT on 06-19-2025 Protein [Mass/Vol] 7.3 g/dL 5.9-8.4 [facility] Triglycerides measurementOrd ered By: HEALTH ASSESSMENT on 06-19-2025 Triglyceride [Mass/Vol] 213 mg/dL High <199 [facility] Comment on above: The drugs N-Acetylcy steine and Metamizole may falsely depress this assay. Normal range: <150 mg/dLBorderline High: 150-199 mg/dLHigh: 200-499 mg/dLVery High: >500 mg/dL Urinalysis, Employeeon 06-19 BILIRUBIN URINE Normal Negative [facility] Comment on above: Order Comment: Urine , Random Result Comment: NOT WANTED Performed By: #### L 500.2900, L100.0200, L400.0100 #### [facility] [address] [place], [address] Clarity (U) Normal Clear [facility] Comment on above: Order Comment: Urine , Random Result Comment: NOT WANTED Performed By: #### L 500.2900, L100.0200, L400.0100 #### [facility] [address] [place], [address] Color (U) Normal Yellow [facility] Comment on above: Order Comment: Urine , Random Result Comment: NOT WANTED Performed By: #### L 500.2900, L100.0200, L400.0100 #### [facility] [address] [place], [address] GLUCOSE, UR Normal Normal [facility] Comment on above: Order Comment: Urine , Random Result Comment: NOT WANTED Performed By: #### L 500.2900, L100.0200, L400.0100 #### [facility] [address] [place], [address] KETONE UR Normal Negative [facility] Comment on above: Order Comment: Urine , Random Result Comment: NOT WANTED Performed By: #### L 500.2900, L100.0200, L400.0100 #### [facility] [address] [place], [address] LEUK ESTERASE Normal Negative [facility] Comment on above: Order Comment: Urine , Random Result Comment: NOT WANTED Performed By: #### L 500.2900, L100.0200, L400.0100 #### [facility] [address] [place], [address] Nitrite Ql (U) Normal Negative [facility] Comment on above: Order Comment: Urine , Random Result Comment: NOT WANTED Performed By: #### L 500.2900, L100.0200, L400.0100 #### [facility] [address] [place], [address] OCCULT BLOOD-UR Normal Negative [facility] Comment on above: Order Comment: Urine , Random Result Comment: NOT WANTED Performed By: #### L 500.2900, L100.0200, L400.0100 #### [facility] [address] [place], [address] pH UR Normal 5.0 - 8.0 [facility] Comment on above: Order Comment: Urine , Random Result Comment: NOT WANTED Performed By: #### L 500.2900, L100.0200, L400.0100 #### [facility] [address] [place], [address] PROT DIPSTX Normal Negative [facility] Comment on above: Order Comment: Urine , Random Result Comment: NOT WANTED Performed By: #### L 500.2900, L100.0200, L400.0100 #### [facility] [address] [place], [address] SP.GR. DIPSTX Normal 1.002-1.030 [facility] Comment on above: Order Comment: Urine , Random Result Comment: NOT WANTED Performed By: #### L 500.2900, L100.0200, L400.0100 #### [facility] [address] [place], [address] UR Preservative Normal [facility] Comment on above: Order Comment: Urine , Random Result Comment: NOT WANTED Performed By: #### L 500.2900, L100.0200, L400.0100 #### [facility] [address] [place], [address] UROBILI Normal Normal [facility] Comment on above: Order Comment: Urine , Random Result Comment: NOT WANTED Performed By: #### L 500.2900, L100.0200, L400.0100 #### [facility] [address] [place], [address] White blood cell (WBC) count Ordered By: HEALTH ASSESSMENT on 06-19-2025 WBC (Bld) [#/Vol] 9.4 10*3/uL 4.4-11.0 [facility] .Auto Diffon 06-13-2025 Basophil, Absolute 0.1 10 3/mcL Normal 0.0-0.3 [facility] Comment on above: Performed By: #### G FR, FT4, FE, TSH, FT3, CMP, ANEU, ADIFF, FERR, CBC #### [facility] [address] [place] [address] Basophils/100 WBC (Bld) 0.7 % Normal 0.0-2.5 [facility] Comment on above: Performed By: #### G FR, FT4, FE, TSH, FT3, CMP, ANEU, ADIFF, FERR, CBC #### [facility] [address] [place] [address] Eosinophil, Absolute 0.2 10 3/mcL Normal 0.0-0.7 [facility] Comment on above: Performed By: #### G FR, FT4, FE, TSH, FT3, CMP, ANEU, ADIFF, FERR, CBC #### [address] [address] Eosinophils/100 WBC (Bld) 2.2 % Normal 0.0-6.0 [facility] Comment on above: Performed By: #### G FR, FT4, FE, TSH, FT3, CMP, ANEU, ADIFF, FERR, CBC #### [address] [address] Lymphocyte, Absolute 2.9 10 3/mcL Normal 0.9-4.3 [facility] Comment on above: Performed By: #### G FR, FT4, FE, TSH, FT3, CMP, ANEU, ADIFF, FERR, CBC #### [address] [address] Lymphocytes/100 WBC (Bld) 33.9 % Normal 20.0-40.0 [facility] Comment on above: Performed By: #### G FR, FT4, FE, TSH, FT3, CMP, ANEU, ADIFF, FERR, CBC #### [address] [address] Monocyte, Absolute 0.4 10 3/mcL Normal 0.1-1.4 [facility] Comment on above: Performed By: #### G FR, FT4, FE, TSH, FT3, CMP, ANEU, ADIFF, FERR, CBC #### [address] [address] Monocytes/100 WBC (Bld) 4.9 % Normal 2.0-13.0 [facility] Comment on above: Performed By: #### G FR, FT4, FE, TSH, FT3, CMP, ANEU, ADIFF, FERR, CBC #### [address] [address] Neutrophils/100 WBC (Bld) 58.3 % Normal 50.0-75.0 [facility] Comment on above: Performed By: #### G FR, FT4, FE, TSH, FT3, CMP, ANEU, ADIFF, FERR, CBC #### [address] [address] .GFR 06-13-2025 Estimated Glomerular Filtration Rate 94 ml/min/1.73sqm Normal [facility] Comment on above: Result Comment: Stages of Chronic Kidney Disease (CKD) Stage Description eGFR(ml/min/1.73 sq.m.) CKD 1 Normal kidney function or >=90 normal kindney function with possible kidney damage (ex. Proteinuria) CKD 2 Kidney damage with mild loss 60-89 of kidney function CKD 3a Mild to moderate loss of kidney 45-59 function CKD 3b Moderate to severe loss of 30-44 of kindey function CKD 4 Severe loss of kidney function 15-29 CKD 5 Kidney failure <15 Note: (go live 2025) the eGFR calculation was updated to the 2020 CKD-EPI creatinine equation without a race factor to calculate the eGFR results. Performed By: #### G FR, FT4, FE, TSH, FT3, CMP, ANEU, ADIFF, FERR, CBC #### [place] [address] .NEUABSon 06-13-2025 Neutrophil, Absolute 4.9 10 3/mcL Normal 2.3-8.1 [facility] Comment on above: Performed By: #### G FR, FT4, FE, TSH, FT3, CMP, ANEU, ADIFF, FERR, CBC #### [place] [address] CBCon 06-13-2025 Erythrocyte distribution width (RBC) [Ratio] 12.1 % Normal 11.5-15.5 [facility] Comment on above: Performed By: #### G FR, FT4, FE, TSH, FT3, CMP, ANEU, ADIFF, FERR, CBC #### [place] [address] Hematocrit (Bld) [Volume fraction] 45.6 % Normal 34.0-46.0 [facility] Comment on above: Performed By: #### G FR, FT4, FE, TSH, FT3, CMP, ANEU, ADIFF, FERR, CBC #### [place] [address] Hgb 15.7 G/dL Normal 12.0-16.0 [facility] Comment on above: Performed By: #### G FR, FT4, FE, TSH, FT3, CMP, ANEU, ADIFF, FERR, CBC #### [place] [address] MCH (RBC) [Entitic mass] 32.4 pg Normal 27.0-33.0 [facility] Comment on above: Performed By: #### G FR, FT4, FE, TSH, FT3, CMP, ANEU, ADIFF, FERR, CBC #### [place] [address] MCHC 34.5 G/dL Normal 32.0-36.0 [facility] Comment on above: Performed By: #### G FR, FT4, FE, TSH, FT3, CMP, ANEU, ADIFF, FERR, CBC #### [place] [address] MCV (RBC) [Entitic vol] 94.1 fL Normal 80.0-99.0 [facility] Comment on above: Performed By: #### G FR, FT4, FE, TSH, FT3, CMP, ANEU, ADIFF, FERR, CBC #### [place] [address] Platelet 247 10 3/mcL Normal 150-450 [facility] Comment on above: Performed By: #### G FR, FT4, FE, TSH, FT3, CMP, ANEU, ADIFF, FERR, CBC #### [place] [address] Platelet mean volume (Bld) [Entitic vol] 8.6 fL Normal 6.6-10.5 [facility] Comment on above: Performed By: #### G FR, FT4, FE, TSH, FT3, CMP, ANEU, ADIFF, FERR, CBC #### [place] [address] RBC 4.85 10 6/mcL Normal 4.10-5.30 [facility] Comment on above: Performed By: #### G FR, FT4, FE, TSH, FT3, CMP, ANEU, ADIFF, FERR, CBC #### [place] [address] WBC 8.4 10 3/mcL Normal 4.5-10.8 [facility] Comment on above: Performed By: #### G FR, FT4, FE, TSH, FT3, CMP, ANEU, ADIFF, FERR, CBC #### [place] [id number] CMPon 06-13-2025 Albumin Level 4.5 G/dL Normal 3.2-4.8 [facility] Comment on above: Performed By: #### G FR, FT4, FE, TSH, FT3, CMP, ANEU, ADIFF, FERR, CBC #### [place] [address] Albumin/Globulin [Mass ratio] 1.5 {ratio} Normal 0.9-1.6 [facility] Comment on above: Performed By: #### G FR, FT4, FE, TSH, FT3, CMP, ANEU, ADIFF, FERR, CBC #### [place] [address] ALP [Catalytic activity/Vol] 72 U/L Normal 38-126 [facility] Comment on above: Performed By: #### G FR, FT4, FE, TSH, FT3, CMP, ANEU, ADIFF, FERR, CBC #### [place] [address] ALT [Catalytic activity/Vol] 21 U/L Normal 10-49 [facility] Comment on above: Performed By: #### G FR, FT4, FE, TSH, FT3, CMP, ANEU, ADIFF, FERR, CBC #### [address] [address] AST [Catalytic activity/Vol] 23 U/L Normal 8-34 [facility] Comment on above: Performed By: #### G FR, FT4, FE, TSH, FT3, CMP, ANEU, ADIFF, FERR, CBC #### [place] [address] Bili Total 0.40 mg/dL Normal 0.20-1.20 [facility] Comment on above: Result Comment: Use of this assay is not recommended for patients undergoing treatment with eltrombopag due to the potential for falsely elevated results. Performed By: #### G FR, FT4, FE, TSH, FT3, CMP, ANEU, ADIFF, FERR, CBC #### [place] [address] BUN/Creatinine Ratio 17.5 ratio Normal 10.0-22.0 [facility] Comment on above: Performed By: #### G FR, FT4, FE, TSH, FT3, CMP, ANEU, ADIFF, FERR, CBC #### [place] [address] Calcium [Mass/Vol] 10.1 mg/dL Normal 8.7-10.4 [facility] Comment on above: Performed By: #### G FR, FT4, FE, TSH, FT3, CMP, ANEU, ADIFF, FERR, CBC #### [place] [id number] Chloride [Moles/Vol] 105 mmol/L Normal 98-110 [facility] Comment on above: Performed By: #### G FR, FT4, FE, TSH, FT3, CMP, ANEU, ADIFF, FERR, CBC #### [place] [id number] CO2 [Moles/Vol] 28 mmol/L Normal 22-32 [facility] Comment on above: Performed By: #### G FR, FT4, FE, TSH, FT3, CMP, ANEU, ADIFF, FERR, CBC #### [place] [id number] Creatinine [Mass/Vol] 0.80 mg/dL Normal 0.50-1.20 [facility] Comment on above: Result Comment: Test ing performed on [employer] analyzer using enzymatic creatinine methodology. Performed By: #### G FR, FT4, FE, TSH, FT3, CMP, ANEU, ADIFF, FERR, CBC #### [place] [id number] Electrolyte Balance 9.0 mEq/L Normal 4.0-15.0 [facility] Comment on above: Performed By: #### G FR, FT4, FE, TSH, FT3, CMP, ANEU, ADIFF, FERR, CBC #### [address] [address] Globulin 3.0 G/dL Normal 2.5-4.2 [facility] Comment on above: Performed By: #### G FR, FT4, FE, TSH, FT3, CMP, ANEU, ADIFF, FERR, CBC #### [address] [address] Glucose [Mass/Vol] 91 mg/dL Normal 70-110 [facility] Comment on above: Performed By: #### G FR, FT4, FE, TSH, FT3, CMP, ANEU, ADIFF, FERR, CBC #### [address] [address] Potassium [Moles/Vol] 3.8 mmol/L Normal 3.5-5.0 [facility] Comment on above: Performed By: #### G FR, FT4, FE, TSH, FT3, CMP, ANEU, ADIFF, FERR, CBC #### [address] [address] Sodium [Moles/Vol] 142 mmol/L Normal 136-145 [facility] Comment on above: Performed By: #### G FR, FT4, FE, TSH, FT3, CMP, ANEU, ADIFF, FERR, CBC #### [address] [address] Total Protein 7.5 G/dL Normal 5.7-8.2 [facility] Comment on above: Performed By: #### G FR, FT4, FE, TSH, FT3, CMP, ANEU, ADIFF, FERR, CBC #### [address] [address] Urea nitrogen [Mass/Vol] 14.0 mg/dL Normal 8.0-22.0 [facility] Comment on above: Performed By: #### G FR, FT4, FE, TSH, FT3, CMP, ANEU, ADIFF, FERR, CBC #### [address] [address] FEon 06-13-2025 Iron [Mass/Vol] 83 ug/dL Normal 50-170 [facility] Comment on above: Performed By: #### G FR, FT4, FE, TSH, FT3, CMP, ANEU, ADIFF, FERR, CBC #### [place] [address] Judy 06-13-2025 Ferritin [Mass/Vol] 61.9 ng/mL Normal 8.0-252.0 [facility] Comment on above: Performed By: #### G FR, FT4, FE, TSH, FT3, CMP, ANEU, ADIFF, FERR, CBC #### [place] [address] FT3on 06-13-2025 Free T3 [Mass/Vol] 3.45 pg/mL Normal 2.30-4.20 [facility] Comment on above: Performed By: #### G FR, FT4, FE, TSH, FT3, CMP, ANEU, ADIFF, FERR, CBC #### [place] [address] FT4on 06-13-2025 Free T4 [Mass/Vol] 1.32 ng/dL Normal 0.89-1.76 [facility] Comment on above: Result Comment: No te - New Reference Range in effect 20 Performed By: #### G FR, FT4, FE, TSH, FT3, CMP, ANEU, ADIFF, FERR, CBC #### [place] [address] TSHon 06-13-2025 TSH 1.785 mIU/mL Normal 0.550-4.780 [facility] Comment on above: Performed By: #### G FR, FT4, FE, TSH, FT3, CMP, ANEU, ADIFF, FERR, CBC #### [place] [address] Magnetic resonance imaging r eportOrdered By: Sary Delgadillo on 05-24-2025 Study report [facility] Imaging Services [address] [place] [place], [place] [id number] Breast Bilateral W/O and W MR#: [id number] Acct: [id number] Name: VEGA HENSLEY Rep #: [id number] : 1980 F 45 From: Danette Delgadillo MD PCP: Dr. Marcus Blum DO Status: REG CLI Study:Breast Bilateral W/O and W Date of Exam : 05/22/25 Exam# [id number] Ordering Dr: Karen Ferris NP [employer] PROCEDURE: BREAST BILATERAL W/O AND W 05/22/2025 REASON FOR EXAM: 45-year-old female presents for high-risk screening breast MRI due to family history of breast cancer and dense breast tissue. TECHNIQUE: BREAST BILATERAL W/O AND W CONTRAST: 17 mL of IV Clariscan COMPARISON: Mammograms 09/26/2024, 07/29/2023 FINDINGS: TISSUE DENSITY: The breasts are heterogeneously dense, which may obscure small masses. Background Parenchymal Enhancement: Mild RIGHT Breast: No suspicious mass or non-mass enhancement. LEFT Breast: No suspicious mass or non-mass enhancement. Other Findings: No suspicious axillary or internal mammary lymph nodes. Visualized portions of the thoracic and abdominal viscera are unremarkable. MRI/Breast Bilateral W/O and W IMPRESSION: There is no MR evidence of malignancy in either breast. OVERALL FINAL ASSESSMENT BI-RADS 1: NEGATIVE. RECOMMEND ANNUAL MAMMOGRAPHIC SCREENING. RECOMMENDATION: Routine annual follow-up in 1 Year Reading Location: [facility] CC: [employer]-C Karen Ferris; Dr. Marcus Blum DO ~ Employee Relations Consultant: Signed [facility] Breast Bilateral W/O and Won 05-22-2025 Breast Bilateral W/O and W [facility] Imaging Services [address] [place] [id number] Breast Bilateral W/O and W MR#: [id number] Acct: [id number] Name: VEGA HENSLEY Rep #: [id number] : 1980 F 45 From: Sary Delgadillo MD PCP: Dr. Marcus Blum DO Status: REG CLI Study: Breast Bilateral W/O and W Date of Exam: 05/22 Exam# [id number] Ordering Dr: Karen Ferris NP PROGRAM ADVOCATE -C PROCEDURE: BREAST BILATERAL W/O AND W 05/22/2025 REASON FOR EXAM: 45-year-old female presents for high-risk screening breast MRI due to family history of breast cancer and dense breast tissue. TECHNIQUE: BREAST BILATERAL W/O AND W CONTRAST: 17 mL of IV Clariscan COMPARISON: Mammograms 09/26/2024, 07/29/2023 FINDINGS: TISSUE DENSITY: The breasts are heterogeneously dense, which may obscure small masses. Background Parenchymal Enhancement: Mild RIGHT Breast: No suspicious mass or non-mass enhancement. LEFT Breast: No suspicious mass or non-mass enhancement. Other Findings: No suspicious axillary or internal mammary lymph nodes. Visualized portions of the thoracic and abdominal viscera are unremarkable. MRI/Breast Bilateral W/O and W IMPRESSION: There is no MR evidence of malignancy in either breast. OVERALL FINAL ASSESSMENT BI-RADS 1: NEGATIVE. RECOMMEND ANNUAL MAMMOGRAPHIC SCREENING. RECOMMENDATION: Routine annual follow-up in 1 Year Reading Location: [facility] CC: GALDINO Ferris; Dr. Marcus Blum DO Employee Relations Consultant: Signed [facility] MR/POSTOP.[facility] 12-06-2024 MR/[facility]OP[facility] Medical Records Department [address] [place] [address] Anesthesia Postop Eval I 12/06/24924 MR#: [id number] Acct: [id number] Name: VEGA HENSLEY Rep #: [id number] : 1980 44 From: Eloy Valdivia MD PCP: Dr. Marcus Blum DO Status:[facility] Y Race: C [place] [facility] [place]esthesia: Postop Eval I Current Vital Signs [...] Anesthesia document: Postop Eval 1 completed: Yes 12/06/24 133 Date Eloy Valdivia [facility] Signature: Date CC: Signed Normal [facility] MR/[id number] 12-06-2024 MR/POSTOPAN2 [facility] Medical Records Department [address] [place] [address] Anesthesia Postop Eval II 12/06/24 1335 MR#: [id number] Acct: [id number] Name: VEGA HENSLEY Rep #: [id number] : 1980 44 From: Eloy Valdivia MD PCP: Dr. Marcus Blum, DO Status:[facility] Y Race: C [place] [facility] [place]esthesia Postop Eval I Sum Postop Eval [...] Eloy Kang Signature: Date CC: Signed Normal [facility] Operative Reporton 5 Operative Report [facility] Medical Records Department [address] [place] [address] Operative Report 12/06/24 1431 MR#: [id number] Acct: [id number] Name: VEGA HENSLEY Rep #: [id number] : 1980 44 From: Andrews Pizano DO PCP: Dr. Marcus Blum DO Status:[facility] Location[place] [facility] Operative Report (Standard) Operative Information Date of Procedure: 12/06/24 Pre-Operative Diagnosis: Bilateral trigger thumb Post-Operative Diagnosis: Bilateral trigger thumb Surgery/Procedure Performed: Bilateral thumb A1 evans releases seed potato arranger: No Type of Anesthesia: Local MAC RN [...] Follow-up in 2 weeks for suture removal. Laura prescription provided. Tylenol and ibuprofen encouraged. Ice [...] Cosigner Signature (if applicable): CC: Dr. Andrews Pizano, DO; Dr. Marcus Blum DO Signed Normal [facility] Final Surgical Pathology Rep [facility] 08-09-2024 Final Surgical Pathology Report . Pathology Reports Accession: Collected Date/Time: Received Date/Time: Pathologist: [id number] 08/06/2024 09:06 EDT 08/07/2024 08:32 EDT RAJENDRA [...] All parts labelled with patient name and [id number] Received in formalin labeled back of neck is 1 milton-brown skin fragment measuring 0.5 x 0.4 cm. The skin surface is raised and dark brown. Margin is inked black and specimen is bisected. TS-1 Sabrina Morales, Grossing Foster Care Case Manager/ Dr. Diego Baerd, Pathologist Performed by Sabrina Morales MICROSCOPIC DESCRIPTION: The microscopic examination is performed, except in the case of Gross Only. Electronically Signed by Pathology Report verified by [facility] RAJENDRA ROMAN Sign out Date: 08/09/2024 08:56 Performing Lab: [facility], [address] [place] [address] Pathology Dept Disclaimer If ancillary studies were utilized, the following Laboratory Developed Test (LDT) disclaimer will apply: Under CLIA requirements, [facility] Pathology Laboratory is qualified to perform high complexity testing. For all ancillary stains, positive and negative controls stain appropriately. Performance characteristics of immunohistochemical and chromogenic in-situ hybridization tests have been determined by [facility] Pathology Laboratory. These tests are used for clinical purposes, They should not be regarded as investigational or for research. Normal [facility] Cervical or vagninal specime n microscopic examination by cytology stain (reported asOrdered By: Harriet Grant on 07-08-2023 Cytology report Cyto stain Doc (Cvx/Vag) Comment . [facility] Comment on above: The Pap smear is [...] 33,Ordered By: Harriet Grant on 07-08-2023 HPV 16+18+31+33+35+39+45+51+ 52+56+58+59+66+68 DNA Probe+sig amp Ql (Cvx) Negative Negative [facility] Comment on above: This nucleic acid am plification test detects fourteen high-risk HPV types (16,18,31,33,35,39,45,51,52,56,58,59,66,68)without differentiation. Laboratory - CytologyOrdered By: Harriet Grant on 07-08-2023 Unit Aid Cyto stain Nom (Cvx/Vag) [ID] Comment . [facility] Comment on above: Yee Mcrae, Cytot echnologist (ASCP) Pathologist Cyto stain Nom (Cvx/Vag) [ID] Comment . [facility] Comment on above: Macey Jin MD, Pa thologist Recommended follow-up Cyto stain Nom (Cvx/Vag) Comment . [facility] Comment on above: Suggest follow up as clinically appropriate. Laboratory - Miscellaneous t estsOrdered By: Harriet Grant on 07-08-2023 Service comment (Unsp spec) [Interp] Comment . [facility] Comment on above: This liquid based Th inPrep(R) pap test was screened withthe use of an image guided system. Service comment (Unsp spec) [Interp] . . [facility] Liquid-based cerv Pap + CT/G C by JOANA w reflex to high-risk HPV for ASCUSOrdered By: Harriet Grant on 07-08-2023 Cytology report Cyto stain.thin prep Doc (Cvx/Vag) Comment . [facility] Comment on above: Criteria not met, HP V Genotype not performed.Performed at: - [facility] [id number] Director: Reyna Quarles MD, Phone: [phone] at: =G - [facility] [address], [place] [id number] Director: Reyna Quarles MD, Phone: [phone] No Panel InformationOrdered By: Harriet Grant on 07-08-2023 Follicle Stimulating Hormone 38.1 mIU/mL [facility] Comment on above: NORMAL REFERENCE RAN GES FEMALE FOLLICULAR 2.3 - 12.6 mIU/mL MID-CYCLE PEAK 5.2 - 17.5 mIU/mL LUTEAL 1.7 - 12.9 mIU/mL POST-MENOPAUSAL ON MHT 5.9 - 72.8 mIU/mL NOT ON MHT 12.7 - 132.2 mlU/mL MALE 0.7 - 10.8 mIU/mL Luteinizing Hormone 53.4 mIU/mL [facility] Comment on above: NORMAL REFERENCE RAN GES FEMALE FOLLICULAR 1.9 - 26.2 mIU/mL MID-CYCLE PEAK 22.8 - 76.1 mIU/mL LUTEAL 0.6 - 16.6 mIU/mL POST-MENOPAUSAL ON MHT 1.1 - 52.4 mIU/mL NOT ON MHT 8.6 - 61.8 mIU/mL MALE 1.2 - 10.6 mIU/mL Thyroid Stimulating Hormone (TSH) 1.34 uIU/mL 0.358-3.74 [facility] Pathology report final diagnosis Narrative Comment . [facility] Comment on above: EPITHELIAL CELL ABNO RMALITY.LOW GRADE SQUAMOUS INTRAEPITHELIAL LESION (LSIL). R87.612 Serum or plasma estradiol (E 2) measurement (mass/volume)Ordered By: Harriet Grant on 07-08-2023 E2 [Mass/Vol] 47.6 pg/mL [facility] Comment on above: NORMAL REFERENCE RAN GES [...] 07-08-2023 Progesterone [Mass/Vol] 0.67 ng/mL See Comment [facility] Comment on above: Progesterone Referen ce Table: UNITS Female: Follicular 0.15 - 1.40 ng/mL Luteal 3.34 - 25.56 ng/mL Mid-luteal 4.44 - 28.03 ng/mL Postmenopausal 0.0 - 0.73 ng/mL : 1st Trimester 11.22 - 90.00 ng/mL 2nd Trimester 25.55 - 89.40 ng/mL 3rd Trimester 48.40 -422.50 ng/mL Serum or plasma prolactin me asurement (mass/volume)Ordered By: Harriet Grant on 07-08-2023 Prolactin [Mass/Vol] 11.7 ng/mL [facility] Comment on above: NORMAL REFERENCE RAN GES FEMALE NON- 2.2 - 30.3 ng/mL 8.1 - 347.6 ng/mL POST-MENOPAUSAL 0.7 - 31.5 ng/mL MALE 2.5 - 17.4 ng/mL Absolute lymphocyte countOrd ered By: HEALTH ASSESSMENT on 06-13-2023 Lymphocytes Auto (Unsp spec) [#/Vol] 2.38 10*3/uL 0.83-4.51 [facility] Absolute reticulocyte countO rdered By: HEALTH ASSESSMENT on 06-13-2023 Reticulocytes (Bld) [#/Vol] 0.00 10*3/uL 0-5 [facility] Basophil percentageOrdered B y: HEALTH ASSESSMENT on 06-13-2023 Basophil percentage 3.7 mg/dL 2.5-4.9 [facility] Bilirubin [Mass/Vol] 0.40 mg/dL 0.20-1.00 [facility] Comment on above: For patients on eltr ombopag therapy, use of Dimension [place] TBIL is not recommended. Chloride [Moles/Vol] 107 mmol/L 98-107 [facility] Cholesterol [Mass/Vol] 230 mg/dL <200 [facility] Comment on above: <200 mg/dL Desirable 200-240 mg/dL Borderline >240 mg/dL High Risk Glucose [Mass/Vol] 108 mg/dL 74-106 [facility] Comment on above: Fasting Glucose resu lt from 100 to 125 mg/dL suggests IMPAIRED HOMEOSTASIS per A.D.A. criteria. LDH [Catalytic activity/Vol] 201 U/L 84-246 [facility] Neutrophils (Bld) [#/Vol] 6.3 10*3/uL 2.0-7.7 [facility] Potassium [Moles/Vol] 4.1 mmol/L 3.5-5.1 [facility] Protein [Mass/Vol] 7.6 g/dL 6.4-8.2 [facility] Sodium [Moles/Vol] 139 mmol/L 136-145 [facility] Triglyceride [Mass/Vol] 189 mg/dL <199 [facility] Comment on above: The drugs N-Acetylcy steine and Metamizole may falsely depress this assay.Serum Triglycerides Reference Interval Normal <150 mg/dL Borderline high 150 - 199 mg/dL High 200 - 499 mg/dL Very High > or = 500 mg/dL WBC (Bld) [#/Vol] 9.6 10*3/uL 4.4-11.0 [facility] Blood erythrocytes count (nu mber/volume)Ordered By: HEALTH ASSESSMENT on 06-13-2023 RBC (Bld) [#/Vol] 4.81 10*6/uL 4.2-5.4 [facility] Blood hemoglobin measurement (mass/volume)Ordered By: HEALTH ASSESSMENT on 06-13-2023 Hemoglobin (Bld) [Mass/Vol] 15.6 g/dL 12.0-15.0 [facility] Blood platelet mean volumeOr dered By: HEALTH ASSESSMENT on 06-13-2023 Platelet mean volume (Bld) [Entitic vol] 10.2 fL 6.2-12.0 [facility] Determination of erythrocyte mean corpuscular volume (MCV)Ordered By: HEALTH ASSESSMENT on 06-13-2023 MCV (RBC) [Entitic vol] 96.5 fL 81-99 [facility] Direct bilirubinOrdered By: HEALTH ASSESSMENT on 06-13-2023 Bilirubin.direct [Mass/Vol] 0.08 mg/dL 0.00-0.30 [facility] Hematocrit Auto (Bld) [Volum e fraction]Ordered By: HEALTH ASSESSMENT on 06-13-2023 Hematocrit (Bld) [Volume fraction] 46.4 % 37-47 [facility] Laboratory - Chemistry and C hemistry - challengeOrdered By: HEALTH ASSESSMENT on 06-13-2023 ALP [Catalytic activity/Vol] 59 U/L 45-117 [facility] ALT [Catalytic activity/Vol] 23 U/L 13-56 [facility] Cholesterol.total/Choles terol in HDL [Mass ratio] 6.60 {ratio} [facility] CO2 [Moles/Vol] 27.0 mmol/L 21.0-32.0 [facility] Globulin (S) [Mass/Vol] 3.7 g/dL 2.2-4.2 [facility] Urea nitrogen/Creatinine [Mass ratio] 15.3 mg/mg 10-20 [facility] Laboratory - Hematology and Cell countsOrdered By: HEALTH ASSESSMENT on 06-13-2023 Erythrocyte distribution width (RBC) [Entitic vol] 40.5 fL 35.1-43.9 [facility] Erythrocyte distribution width (RBC) [Ratio] 11.4 % 11.6-14.6 [facility] MCH (RBC) [Entitic mass] 32.4 pg 27.0-32.0 [facility] Nucleated RBC/100 WBC (Bld) [Ratio] 0 % 0-5 [facility] MCHC Auto (RBC) [Mass/Vol]Or dered By: HEALTH ASSESSMENT on 06-13-2023 MCHC (RBC) [Mass/Vol] 33.6 g/dL 32-36 [facility] No Panel InformationOrdered By: HEALTH ASSESSMENT on 06-13-2023 Estimated GFR (MDRD) Amer 95 mL/min >60 [facility] Comment on above: GFR Calc Estimated GFR (MDRD) Non-Af Amer 78 mL/min >60 [facility] Comment on above: Non- GFR Calc Platelets bldOrdered By: ANAMIKA LT ASSESSMENT on 06-13-2023 Platelets (Bld) [#/Vol] 251 10*3/uL 150-450 [facility] Segmented neutrophils/100 WB C Auto (Bld)Ordered By: HEALTH ASSESSMENT on 06-13-2023 Segmented neutrophils/100 WBC (Bld) 65.8 % 47-70 [facility] Serum or plasma albumin bran urement (mass/volume)Ordered By: HEALTH ASSESSMENT on 06-13-2023 Albumin [Mass/Vol] 3.9 g/dL 3.2-5.0 [facility] Serum or plasma albumin/glob ulin mass ratioOrdered By: HEALTH ASSESSMENT on 06-13-2023 Albumin/Globulin [Mass ratio] 1.1 {ratio} 0.9-2.4 [facility] Serum or plasma calcium bran urement (mass/volume)Ordered By: HEALTH ASSESSMENT on 06-13-2023 Calcium [Mass/Vol] 9.1 mg/dL 8.5-10.1 [facility] Serum or plasma cholesterol in HDL measurement (mass/volume)Ordered By: HEALTH ASSESSMENT on 06-13-2023 Cholesterol in HDL [Mass/Vol] 35 mg/dL >40 [facility] Comment on above: The drugs N-Acetylcy steine and Metamizole may falsely depress this assay. Reference Range HDL <40 mg/dL Low HDL Cholesterol HDL >or= 60 mg/dL High HDL Cholesterol Serum or plasma cholesterol in VLDL measurement (mass/volume)Ordered By: HEALTH ASSESSMENT on 06-13-2023 Cholesterol in VLDL [Mass/Vol] 38 mg/dL 5-40 [facility] Serum or plasma creatinine m easurement (mass/volume)Ordered By: HEALTH ASSESSMENT on 06-13-2023 Creatinine [Mass/Vol] 0.85 mg/dL 0.55-1.02 [facility] Comment on above: The validity of the calculated GFR & GFRAA in patients over 70 years has not been determined. Clinical correlation is essential. Serum or plasma low density lipoprotein (LDL) cholesterol measurement (mass/volume)Ordered By: HEALTH ASSESSMENT on 06-13-2023 Cholesterol in LDL [Mass/Vol] 157 mg/dL 0-130 [facility] Serum or plasma urea nitroge n measurement (mass/volume)Ordered By: HEALTH ASSESSMENT on 06-13-2023 Urea nitrogen [Mass/Vol] 13 mg/dL 7-18 [facility] Serum or plasma uric acid me asurement (mass/volume)Ordered By: HEALTH ASSESSMENT on 06-13-2023 Urate [Mass/Vol] 4.5 mg/dL 2.6-6.0 [facility] Comment on above: The drugs N-Acetylcy steine and Metamizole may falsely depress this assay. Thin prep Papanicolaou smear with manual screeningOrdered By: HEALTH ASSESSMENT on 06-13-2023 Thin prep Papanicolaou smear with manual screening 18 U/L 15-37 [facility] Thin prep Papanicolaou smear with manual screening 5 5-15 [facility] MSCon 08-22-2017 [facility] REPORT Normal [facility] DATE OF SERVICE: 08/22/2017REASON FOR VISIT: Cough, [...] agrees. Her questions wereanswered to her satisfaction. Seth Cabrera, [facility]/[id number]: 08/22/2017 18:03DT: 08/23/2017 11:37SSI File#: [id number] #: [id number]/Reviewed by12/30/17 1255 PAWPR [facility] PATIENT NAME: VEGA HENSLEY [id number] [facility] [address] [place] MEDICAL REC #: [id number], [place] [address] [facility] REPORT STATCARE PHYSICIAN Normal [facility] Vital Signs Date Time Vital Sign Value Performing Clinician Jamila sanchez 09-11-2025 15:22-0400 Body height 162.[address] Marcus Blum DO Work Phone: [facility] 09-11-2025 15:19-0400 Body mass index (BMI) [Ratio] 31.6 kg/m2 Dr. Marcus Blum DO Work Phone: [facility] 09-11-2025 15:19-0400 Body weight 83.[address] Marcus Blum DO Work Phone: [facility] 09-11-2025 15:19-0400 Diastolic blood pressure 76 mm[Hg] Dr. Marcus Blum DO Work Phone: [facility] 09-11-2025 15:19-0400 Systolic blood pressure 118 mm[Hg] Dr. Marcus Blum DO Work Phone: [facility] Encounters Encounter Date Encounter Type Care Provider Facility Start: 10-09-2025 ambulatory Karen Ferris PROGRAM [employer]ATE Facil ity:[facility] Start: 10-07-2025 ambulatory Marcus Blum Facility: [facility] Start: 09-11-2025 Patient encounter procedure Karen Ferris [facility] -Laboratory Specimen Work Phone: Start: 09-11-2025 End: 09-11-2025 Patient encounter procedure Karen Ferris PROGRAM AD[employer]OCATE-C -[facility] Work Phone: Start: 09-11-2025 End: 09-11-2025 Patient encounter status Karen Ferris PROGRAM [employer]-C [facility] Start: 09-11-2025 End: 09-11-[address] Marcus Blum DO Work Phone: -[facility] Start: 09-11-2025 End: 09-11-2025 ambulatory Karen Josy BARTLETT Facility:[facility] Start: 06-19-2025 Registered Referred HEALTH RISK [facility] -Employee Health Start: 06-19-2025 ambulatory Marcus Blum Facility: [facility] Start: 06-13-2025 End: 06-13-2025 ambulatory MARCUS BLUM DO Facility:A Start: 05-22-2025 End: 05-22-[address] Marcus Blum DO Work Phone: [facility] Start: 05-22-2025 End: 05-22-2025 Patient encounter procedure Karen Ferris [employer]GRAM [facility] Work Phone: Start: 05-22-2025 End: 05-22-2025 ambulatory Marcus Blum Facility:[facility] Start: 12-06-2024 End: 12-06-2024 ambulatory Marcus Blum Facility:[facility] Start: 11-29-2024 ambulatory Marcus Blum Facility: [facility] Start: 08-06-2024 End: 08-10-2024 ambulatory MARCUS BLUM DO Facility:[facility] Start: 07-29-2023 End: 07-29-2023 ambulatory [facility] Work Phone: Start: 07-29-2023 End: 07-29-2023 Patient encounter procedure [facility]-Outpatient Breast Imaging Work Phone: Start: 07-08-2023 End: 07-08-2023 ambulatory [facility] Work Phone: Start: 07-08-2023 End: 07-08-2023 Patient encounter procedure [facility]-Laboratory, Specimen Work Phone: Start: 06-13-2023 Registered Referred [facility]-Employee Health Start: 08-22-2017 [facility] Procedures Date Procedure Procedure Detail Performing Clinician Start: 09-11-2025 Liquid based cervica l cytology screening Dr. Marcus Blum DO Work Phone: Comment on above: EPITHELIAL CELL ABNO RMALITY.LOW GRADE SQUAMOUS INTRAEPITHELIAL LESION (LSIL).ATYPICAL SQUAMOUS CELLS, CANNOT EXCLUDE HIGH-GRADE SQUAMOUSINTRAEPITHELIAL LESION (ASC-H). This liquid based Th inPrep(R) pap test was interpretedusing the PriceArea(R) Genius(TM) Cervical Algorithm wholeslide imaging system. Start: 06-19-2025 Serum inorganic phos phate measurement Dr. Marcus Blum DO Work Phone: Start: 05-22-2025 MRI of bilateral alfredo asts with contrast Dr. Marcus Blum DO Work Phone: Start: 07-29-2023 Screening mammography Plan of Treatment Date Care Activity Detail Author Start: 10-09-2025 MG Breast - bilateral Screening [facility] Path report.final Dx Spec [facility] Immunizations Immunization Date Immunization Notes Care Provider Jhoana tobin 09-26-2024 influenza, seasonal, injectable, preservative free Dr. Marcus Blum DO Work Phone: [facility] 10-13-2023 influenza, injectabl e, quadrivalent, preservative free Dr. Marcus Blum DO Work Phone: [facility] 08-30-2022 influenza, injectabl e, quadrivalent, preservative free [facility] 08-30-2022 influenza, seasonal, [facility] 09-30-2021 Cov[facility] ([facility]) [facility] 09-02-2021 influenza, injectabl e, quadrivalent, preservative free [facility] 09-02-2021 influenza, seasonal, [facility] 12-29-2020 Cov[place] ([facility]) [facility] 12-01-2020 Covid ([facility]) [facility] 09-15-2020 influenza, injectabl e, quadrivalent, preservative free [facility] 09-15-2020 influenza, seasonal, [facility] 09-27-2019 influenza, injectabl e, quadrivalent, preservative free [facility] 09-27-2019 influenza, seasonal, [facility] 08-14-2018 influenza, injectabl e, quadrivalent, preservative free [facility] 08-14-2018 influenza, seasonal, [facility] 09-21-2017 influenza, injectabl e, quadrivalent, preservative free [facility] 09-21-2017 influenza, seasonal, [facility] 08-26-2016 influenza, injectabl e, quadrivalent, preservative free [facility] 08-26-2016 influenza, seasonal, injectable [facility] 09-23-2015 influenza, injectabl e, quadrivalent, preservative free [facility] 09-23-2015 influenza, seasonal, [facility] 09-02-2014 influenza, injectabl e, quadrivalent, preservative free [facility] 09-02-2014 influenza, seasonal, [facility] 09-27-2013 Influenza virus vaccine [facility] Payers Date Payer Category Payer Self-pay [id number] Unknown [id number] 2013 Unknown [id number] 1980 Unknown [id number] 2.16. [id number] 1980 Unknown [id number] 2.16.8 [id number] Unknown [id number] 2.16.8 [id number] Unknown [id number] 2.16.8 [id number] Unknown [id number] 2.16.8 [id number] Unknown [id number] 2.16.8 [id number] Unknown [id number] 2.16.8 [id number] Unknown [id number] 2.16.8 [id number] Unknown [id number] 2.16.8 [id number] Unknown [id number] 2.16.8 [id number] Unknown [id number] 2.16.8 [id number] Social History Date Type Detail Facility Start: 11-17-2017 [facility] Start: 1980 Sex Assigned At Female [facility] Start: 11-30-2024 [facility] Sex Female [facility] Progress note 09-11-2025 Note Date & Type Note Facility 09-11-2025 Progress note [facility] Progress note 09-11-2025 Note Date & Type Note Facility 09-11-2025 Progress note Note Date/Time September 11, 2025 3:32pm [facility] [address], [address] [place] [address] OFFICE VISIT Date of Service: 09/11/25 MR#: [id number] Acct: [id number] Name: VEGA HENSLEY Rep #: [id number] : 1980 Provider: GALDINO Ferris Age/Sex: 45/F [place] [facility] Status: Signed Intake Vital Signs 12/06/24 06:22 09/11/25 15:19 09/11/25 15:22 Height 5 ft 4 in 5 ft 4 in 5 ft 4 in Weight: 184 lb BMI 31.6 BP 118/76 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 Sprayer Required: No Is patient in pain?: No Allergies No Known Allergies Allergy (Verified 09/11/25 15:24) Medications ?Medication ?Instructions ?Recorded ?Confirmed ?Type albuterol sulfate 90 mcg/actuation 1 - 2 puff inhalati on Q4H PRN PRN 10/23/14 09/11/25 History aerosol inhaler Wheezing flax seed 2 tab PO DAILY 09/10/2408/28 History multivitamin 2 tab PO QAM 09/10/24 History hydrocodone-acetaminophen 5-325mg 1 tab PO Q6H PRN ana n 3 days #12 12/06/24 09/11/25 Rx 5mg-325mg tabs Post menopausal: No Patient : No : No PFSH Medical History Wears glasses History of steroid therapy Migraine headache Injury of head and neck Gastric reflux Smoker Gestational hypertension Hx of vaginal bleeding High blood pressure (11/28/11) Asthma (11/28/91) Surgical History History of wisdom tooth extraction S/P LEEP History of tubal ligation Family History Mother Skin cancer Cervical cancer Osteoporosis Heart disease Myocardial infarction Breast cancer COPD (chronic obstructive pulmonary disease) Hypertension Asthma Father Alcoholism Heart disease Myocardial infarction Hypertension Grandmother Heart disease Breast cancer Hypertension Social History adopted: No household members: spouse and children number of children: 2 current occupational status: employed current occupation: [employer] current occupational exposures/hazards: No pets and animals: [...] times per week duration: > 90 minutes/day micha/adventism: None seatbelt use: always do you feel safe at home: Yes additional social history: - Dariel History 2 Elective abortions Hx Para 2 Spontaneous abortions Hx # Term Pregnancies Ectopic pregnancies Hx # Pregnancies Multiple births # of living children 2 Past Pregnancies Del. Date Name GA/Weeks Outcome Route Bth Weight Infant Gen Labor [facility]gth [facility]est[facility] FOB Unknown Haylie Unknown Jackie HPI Encounter for routine gynecological examination Details: VEGA HENSLEY is a 45 year old who presents for annual exam. Last PAP: 2023 neg History of abnormal PAP: 2022 LGSIL. 2013 LEEP Last mammogram: 08/2024 History of abnormal mammogram: no Colon cancer screening: age 47 Other preventative health care screenings: Sohail Female Reproductive History Questions: metrorrhagia: No, sexually active: Yes, dyspareunia: No and PCB: No Date of menopause: 01/27/24 Menopausal Symptoms: No hot flashes, No night sweats, No weight change, No mood changes, No difficulty concentrating, No sleep problems and No change in libido ROS Const Constitutional: Denies night sweats : Denies hot flashes Psych Psych: Denies change in libido or difficulty concentrating Exam Const General: cooperative, healthy appearing, no acute distress and well developed Orientation: alert, oriented to person and oriented to place [facility] Head: normal to inspection Neck Neck: normal visual inspection Thyroid: thyroid normal Lymphatic: no lymphadenopathy noted Chest Breast inspection: normal inspection of the breasts and normal inspection of theaxillae Breast palpation: normal palpation of the breasts, normal palpation of the axillae and no axillary lymphadenopathy Resp Effort & Inspection: normal respiratory effort GI Palpation: soft, no masses and nontender Rectal Exam: deferred External Female Exam: normal external appearance and normal appearance of the urethra Urethra: normal appearance of the urethra and normal palpation Speculum Exam - Vagina: normal appearance of the vagina and normal vaginal discharge Speculum Exam - Cervix: normal appearance of the cervix Bimanual Exam- Vagina & Uterus: normal bimanual exam, uterine size normal, uterine shape normal and non-tender Bimanual Exam- Adnexa, other: normal adnexae, no masses, normal and non-tender Pelvic Support: normal Neuro General: patient alert and patient oriented x3 Psych Affect: normal affect Coding Level of Care Code Off vis,est,prev 40-64yrs Diagnoses Encounter for gynecological examination without abnormal finding Z01.419 Gynecological examination findings: abnormal findings ABSENT Assessment and Plan Assessment and Plan (1) Encounter for routine gynecological examination: Qualifiers: Gynecological examination findings: abnormal findings ABSENT Qualified Code(s): Z01.419 - Encounter for gynecological examination (general) (routine) without abnormal findings Orders: Orders PAP IG HPV APTIMA 16/18,45 Today Z12.4 - Encounter for screening for malignant neoplasm of cervix SCRN MAMM (CAD)W/DANNY BILAT Today Z12.39 - Encounter for other screening for malignant neoplasm of breast Plan Completed breast and pelvic exam Reviewed diet and exercise Pap thin prep pap with HPV Mammogram ordered breast self exam encouraged monthly Contraception postmenopausal Colonoscopy age 47 RTO 1 year, prn with problems Karen Ferris [facility] 09/11/25 1532 <Electronically signed by Karen subramanian PROGRAM ADVOCATE PROGRAM ADVOCATE-C> Date _ Karen Ferris [employer]GRAM [employer] PROGRAM ADVOCATE-C Cosigner Signature: Date (if applicable) CC: ~ [place] [employer] Work Phone: Clinical Note 07-08-2023 Note Date & Type Note Facility 07-08-2023 Note [facility] Pap Smear Specimen Adequacy July 08, 2023 11:08am Comment . Satisfactory for evaluation. Endocervical and/or squamous metaplasticcells (endocervical component) are present. Comment on above: Satisfactory for evie luation. Endocervical and/or squamous metaplasticcells (endocervical component) are present. Evaluation note Note Date & Type Note Facility Evaluation note No assessment information availa ble [facility] Work Phone: Evaluation note Note Date & Type Note Facility Evaluation note Diagnosis Onset Date Resolution Encounter for routine gynecological examination noneactive September 11 3:15pm [facility] Work Phone: Reason for referral (narrative) Note Date & Type Note Facility Reason for referral (narrative) No reason for referral information available [facility] Work Phone: Summary Purpose Family History No Family History Records Found Relationship Condition Age at Onset Recorded Date/T almaz mother Malignant neoplasm of skin Unknown Malignant neoplasm of cervix Unknown Osteoporosis Unknown Heart disease Unknown Myocardial infarction Unknown Malignant neoplasm of breast Unknown Chronic obstructive pulmonary disease Unk nown Hypertension Unknown Asthma Unknown father Alcoholism Unknown grandmother Heart disease Unknown Advance Directives No Advanced Directives Records Found Advance Directive Response Recorded Date/ Time Advance Directives No September 11:00am Living Will No October 23, 2 014 11:00am Power of Intervention Nurse No October 23, 2014 11:00am Advance Directive Response Recorded Date/ Time Advance Directives No September 11:00am Chief Complaint and Reason for Visit Chief Complaint 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 Chief Complaint 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 SCREENING Chief Complaint Admit Date MRI alternate w/ mammo Q6mos May 22, 2025 12:32pm Chief Complaint Admit Date EMPLOYEE LABS June 19, 2025 7:20 am Annual ([employer]ER) September 11, 2025 3 :15pm Reason for Visit Admit Date Encounter for routine gynecological exam ination September 11, 2025 3:15pm Additional Source Comments INFORMATION SOURCE (unrecogn ized section and content) DATE CREATED AUTHOR 05/22/2018 [facility] nter Gower DATE CREATED AUTHOR AUTHOR'S ORGANIZ ATION 06/17/2025 [facility] DATE CREATED AUTHOR AUTHOR'S ORGANIZ ATION 10/06/2025 [facility] Care Teams (unrecognized sec tion and content) Team Status: Active Member Role Status Dates No Primary Care Physician Family Provider Active Dr. Marcus Blum , DO Primary Care Provider Active Team Status: Inactive Member Role Status Dates Dr. Marcus Blum , DO Primary Care Provider Active Dr. Harriet Grant , DO Attending Provider Active Team Status: Active Member Role Status Dates Dr. Marcus Blum DO Primary Care Provider Active Health Risk Assessment Attending Provider, Referring Chris moore Active Team Status: Inactive Member Role Status Dates Dr. Marcus Blum DO Primary Care Provider Active Dr. Harriet Grant DO Attending Provider, Referrin g Provider Active Team Status: Active Member Role/Relationship Status Dates Dr. Marcus Blum DO Primary Care Provider Active Team Status: Inactive Member Role/Relationship Status Dates Dr. Marcus Blum DO Primary Care Provider Active Start: May 22, 2025 End: May 22, 2025 Karen Ferris PROGRAM ADVOCATE, PROGRAM ADVOCATE-C Attending Provider Active Start: May 22, 2025 End: May 22, 2025 Karen Ferris PROGRAM ADVOCATE, PROGRAM ADVOCATE-C Referring Provider Active Start: May 22, 2025 End: May 22, 2025 Team Status: Active Member Role/Relationship Status Dates Dr. Marcus Blum DO Primary care physician Active Team Status: Active Member Role/Relationship Status Dates Dr. Marcus Blum DO Primary care physician Active Start: June 19, 2025 Health Risk Assessment Attending physician Active Start: June 19, 2025 Health Risk Assessment Referring Provider Active Start: June 19, 2025 Team Status: Inactive Member Role/Relationship Status Dates Dr. Marcus Blum DO Primary care physician Active Start: September 11, 2025 End: September 11, 2025 Dr. Marcus Blum DO Referring Provider Active Start: September 11, 2025 End: September 11, 2025 Karen Ferris NP PROGRAM ADVOCATE-C Attending physician Active Start: September 11, 2025 End: September 11, 2025 Team Status: Active Member Role/Relationship Status Dates Dr. Marcus Blum DO Primary care physician Active Start: September 11, 2025 Karen Ferris NP, PROGRAM ADVOCATE-C Attending physician Active Start: September 11, 2025 Goals (unrecognized section and content) Goals may be documented in a n alternate sectionGoals may be documented in an alternate sectionGoals may be documented in an alternate sectionGoals may be documented in an [...] BE BASED ON THE PRIMARY CLINICAL RECORDS. [facility] [employer] [facility]. provides no warranty or guarantee of the accuracy or completeness of information in this document.
== END | disposition home or self-care (01) ==
LOC: LABSPEC 16:30
PROVIDERS: PCP Family Medicine; Visit Provider Obstetrics & Gynecology
DX: R87.612 Low grade squamous intraepithelial lesion on cytologic smear of cervix (LGSIL) (principal)
CPT/HCPCS: 88305

== ENCOUNTER → 2025-10-16 | Outpatient (CLI) | payer OTHER, SELFPAY ==
--- NOTE | 2025-10-16 08:30 | BI_ITS ---
EXAM: SCRN MAMM (CAD)W/DANNY BILAT DATE: 10/16/2025 CLINICAL HISTORY: F, Age 45 y/o , SCREENING FOR BREAST CANCER Mother with breast cancer. Grandmother with breast cancer. Aunts with breast cancer. TECHNIQUE: Procedure Code: [id number] Modality: MG Procedure: SCRN MAMM (CAD)W/DANNY BILAT COMPARISON: Prior exam(s) dated September 26, 2024.. FINDINGS: TISSUE DENSITY: The breasts are heterogeneously dense, which may obscure small masses. Bilateral Breast Mammographic Findings: No significant masses, calcifications or other abnormalities are identified. Stable small benign-appearing bilateral axillary lymph nodes. No suspicious masses, areas of developing architectural distortion, or suspicious calcifications. There has been no significant interval change. BI/SCRN MAMM (CAD)W/DANNY BILAT IMPRESSION: Stable bilateral screening mammogram. OVERALL FINAL ASSESSMENT BI-RADS 2: BENIGN RECOMMENDATION: Routine annual follow-up in 1 Year Additional Recommendation none A letter with findings and recommendations will be mailed to the patient. Reading Location: [id number]
--- OUTSIDE RECORDS SUMMARY | 2025-10-16 08:38 | XMS RPT_ITS | CCD ---
Author Organization [facility] Care Team Providers Care It Investment/Portfolio Manager Name Role Phone Seth Cabrera Unavailable Unavailable Dr. Marcus Blum DO Primary Care Provider Rosalia AGRONOMY TEACHER-CKaren Attending Provider [phone] Josy AGRONOMY TEACHER-C, Karen Referring Provider [phone] MARCUS BLUM DO Primary Care Unavailable ALBERTO TROTTER Attending Unava ilable MARCUS BLUM DO Attending Unavailable MARCUS BLUM DO Primary Care Unavailable Dr. Marcus Blum DO Primary Care Physician Assessment, Health Risk Attending Physician Unav ailable Assessment, Health Risk Referring Provider Unava ilable Dr. Marcus Blum DO Referring Provider Josy AGRONOMY TEACHER-CKaren Attending Physician [phone] Marcus Blum Primary Care Unavailable Jana Martinez Attending Unavailabl e Marcus Blum Referring Unavailable Marcus Blum Referring Unavailable Marcus Blum Primary Care Unavailable Josy AGRONOMY TEACHERKaren Attending Unavailable Josy AGRONOMY TEACHERKaren Attending Unavailable Marcus Blum Primary Care Unavailable Rosalia AGRONOMY TEACHER, Karen Referring Unavailable RG YOUSIF Attending Unavailable RG YOUSIF Referring Unavailable Marcus Blum Primary Care Unavailable Josy AGRONOMY TEACHER, Karen Referring Unavailable Josy AGRONOMY TEACHER, Karen Attending Unavailable Marcus Blum Primary Care Unavailable Marcsu Blum Primary Care Unavailable Jana Martinez Attending Unavailabl e Assessment, Health Risk Attending Unavaila ble Assessment, Health Risk Referring Unavaila ble Marcus Blum Primary Care Unavailable JosyKaren subramanian NP Referring Unavailable Josy AGRONOMY TEACHER, Karen Attending Unavailable Marcus Blum Primary Care Unavailable Andrews Pizano Attending Unavailable Andrews Pizano Referring Unavailable Marcus Blum Primary Care Unavailable Marcus Blum Primary Care Unavailable Karen Ferris NP Attending Unavailable Medications Current Medications Medication Drug Class(es) Dates Sig (Normalized) Sig (Original) acetaminophen 325 mg / HYDROcodone bitartrate 5 mg oral tablet (2 sources) Opioid Agonist Start: 12-06-2024 take 1 tablet by mouth every six hours as needed for pain [id number] actuat albuterol 0.09 mg/actuat metered dose [...] 23, 2014 1:00am November 17, 2017 3:43pm Spelter-3 Fatty Acids-Fish Oil (2 sources) Start: 10-23-2014 End: 11-17-2017 Spelter-3 Fatty Acids-Fish Oil Discontinued 1 EACH PO DAILY October 23, 2014 1:00am November 17, 2017 3:43pm Spelter-3 Fatty Acids-Fish Oil 1 EACH capsule (2 sources) Start: 10-23-2014 End: 11-17-2017 Spelter-3 Fatty Acids-Fish Oil 1 EACH capsule Discontinued 1 NMA PO DAILY October 23, 2014 1:00am November 17, 2017 3:43pm Problems Active Problems Problem Classification Problem Date Documented Date Episodic/Chronic Asthma (2 sources) Asthma; Translations: [Unspecified asthma, uncomplicated] Onset: 11-28-1991 11-30-2024 Chronic Comment on above: INHALER PRN Cancer of cervix (2 sources) Low grade squamous intraepithelial lesion on cervical Papanicolaou smear; Translations: [Low grade squamous intraepithelial lesion on cytologic smear of cervix (LGSIL)] Onset: 10-07-2025 09-19-2025 Episodic Comment on above: can not rule out HGS IL, + HPV Menopausal disorders (2 sources) Menopausal syndrome; Translations: [Menopausal and female climacteric states] 09-10-2024 Chronic Comment on above: FSH, estradiol:if no t menopausal needs provera challenge Menstrual disorders (1 source) Amenorrhea, unspecified; Translations: [Amenorrhea, unspecified] Onset: 10-07-2025 Chronic Other ear and sense organ disorders (4 [...] postprocedural states] 09-10-2024 Episodic Comment on above: 2013 LORRAINE 2-3. Paps n egative until LGSIL [...] Test Name Value Interpretation Reference Range Facility Media Services Director Office Visit Reporton 10-07-2025 Media Services Director Office Visit Report [facility] [address], [address] [place] [address] OFFICE VISIT Date of Service: 10/07/25 MR#: [id number] Acct: [id number] Name: VEGA HENSLEY Rep #: [id number] : 1980 Provider: Dr. Jana Kenney DO Age/Sex: 45/F Location: [facility] [place] Status: Signed Intake Vital Signs 09/11/25 15:22 10/07/25 13:08 Height 5 ft 4 in 5 ft 4 in Weight: 186 lb 1 oz BMI 31.9 BP 125/84 H Intake Visit Reasons: Colposcopy, LGSIL, +HPV Technology Lead Required: No Is patient in pain?: No Allergies No Known Allergies Allergy (Verified 10/07/25 13:10) Medications ???Medication ???Instructions ???Recorded ???Confirmed ???Type albuterol sulfate 90 mcg/actuation 1 - 2 puff inhalation Q4H PRN MS N 10/23/14 10/07/25 History aerosol inhaler Wheezing flax seed 2 tab PO DAILY 09/10/24 10/07/25 H istory multivitamin 2 tab PO QAM 09/10/24 10/07/25 His tory hydrocodone-acetaminop hen 5-325mg 1 tab PO Q6H PRN pain 3 days #12 12/06/24 10/07/25 Rx 5mg-325mg tabs Is last menstrual period known: No Post menopausal: Yes Patient : No : No PFSH PFSH Medical History Wears glasses History of [...] 2 current occupational status: employed current occupation: [employer] current occupational exposures/hazards: No pets and animals: [...] times per week duration: > 90 minutes/day micha/temple: None seatbelt use: always do you feel safe at home: Yes additional social history: - Dariel History 2 Elective abortions Hx Para 2 Spontaneous abortions Hx # Term Pregnancies Ectopic pregnancies Hx # Pregnancies Multiple births # of living children 2 Past Pregnancies Del. Date Name GA/Weeks Outcome Route Bth Weight Gen Labor Lgth Anesthesia Del [facility] Provider FOB Unknown Haylie Unknown Jackie HPI Colposcopy, LGSIL, +HPV Details: VEGA HENSLEY is a 45 year old who presents for colposcopy for LGSIL hpv neg pap in 2023 followed by lgsil can not rule out high grade and now positive HPV. She has a history of leep in the past. ROS Const ROS Unobtainable: All systems reviewed are unremarkable except as noted in H Resp Resp: Reports system reviewed and no additional complaints, except as documented; Denies cough GI GI: Reports as per HPI Psych Psych: Reports system reviewed and no additional complaints, except as documented Exam Const General: cooperative, healthy appearing, comfortable and no acute distress Resp Effort Inspection: normal respiratory effort General: bimanual renal exam normal bilaterally External Female Exam: normal appearance of the urethra Urethra: normal appearance of the urethra Speculum Exam - Vagina: normal appearance of the vagina Speculum Exam - Cervix: normal appearance of the cervix Bimanual Exam- Adnexa, other: normal adnexae and normal Pelvic Support: normal Skin General: no rashes or lesions noted Psych Appearance: grossly normal Speech and Movement: speech and movement normal Office Procedures Colposcopy Colposcopy Reason for colposcopy: LSIL Pap/LORRAINE history: other Consent Signed: Yes Time out performed: Yes Acetowhite epithelium (cervix): 12 o'clock Punctation (cervix): none Mosaicism (cervix): none Abnormal (more content not included)... Normal [facility] PAP IG HPV APTIMA 16/18,45on 09-18-2025 ADEQ Comment Normal . [facility] Comment on above: Order Comment: Speci men Comment: [id number] Specimen Comment: No. of containers..01 ThinPrep Vial Result Comment: Sati sfactory for evaluation. Endocervical and/or squamous metaplastic cells (endocervical component) are present. Performed By: #### L 7400.0280 #### [facility] [address] [place], [place], [id number] COMM . Normal . [facility] Comment on above: Order Comment: Speci men Comment: [id number] Specimen Comment: No. of containers..01 ThinPrep Vial Performed By: #### L 7400.0280 #### [facility] [address] [place], [place], [id number] COMMENT Comment Normal . [facility] Comment on above: Order Comment: Speci men Comment: [id number] Specimen Comment: No. of containers..01 ThinPrep Vial Result Comment: This liquid based ThinPrep(R) pap test was interpreted using the Flowgram(R) Genius(TM) Cervical Algorithm whole slide imaging system. Performed By: #### L 7400.0280 #### [facility] [address] [place], [place], [address] DIAG Comment Abnormal . [facility] Comment on above: Order Comment: Speci men Comment: [id number] Specimen Comment: No. of containers..01 ThinPrep Vial Result Comment: EPIT HELIAL CELL ABNORMALITY. LOW GRADE SQUAMOUS INTRAEPITHELIAL LESION (LSIL). ATYPICAL SQUAMOUS CELLS, CANNOT EXCLUDE HIGH-GRADE SQUAMOUS INTRAEPITHELIAL LESION (ASC-H). Performed By: #### L 7400.0280 #### [facility] [address] [place], [place], [address] HPV APTIMA, HR Positive Abnormal Negative [facility] Comment on above: Order Comment: Speci men Comment: [id number] Specimen Comment: No. of containers..01 ThinPrep Vial Result Comment: This nucleic acid amplification test detects fourteen high- risk HPV types (16,18,31,33,35,39,45,51,52,56,58,59,66,68) without differentiation. Performed By: #### L 7400.0280 #### [facility] [address] [place], [place], [address] HPV Candie Rfx Comment Normal . [facility] Comment on above: Order Comment: Speci men Comment: [id number] Specimen Comment: No. of containers..01 ThinPrep Vial Result Comment: Crit ross not met, HPV Genotype not performed. Performed at: WB - [facility] [id number] Exhaust Machine Operator: Reyna Quarles MD, Phone: [phone] Performed at: =G - [facility] [address] [id number] Exhaust Machine Operator: Reyna Quarles MD, Phone: [phone] Performed By: #### L 7400.0280 #### [facility] [address] [place], [place], [id number] PAPSMR Comment Normal . [facility] Comment on above: Order Comment: Speci men Comment: [id number] Specimen Comment: No. of containers..01 ThinPrep Vial Result Comment: The Pap smear is a screening test designed to aid in the detection of premalignant and malignant conditions of the uterine cervix. It is not a diagnostic procedure and should not be used as the sole means of detecting cervical cancer. Both false-positive and false-negative reports do occur. Performed By: #### L 7400.0280 #### [facility] [address] [place], [place], [address] Path.prov.IDC-9 Comment Normal . [facility] Comment on above: Order Comment: Speci men Comment: [id number] Specimen Comment: No. of containers..01 ThinPrep Vial Result Comment: R87. 612, R87.611 Performed By: #### L 7400.0280 #### [facility] [address] [place], [place], [address] PERFORM Comment Normal . [facility] Comment on above: Order Comment: Speci men Comment: [id number] Specimen Comment: No. of containers..01 ThinPrep Vial Result Comment: Nakita Duarte, Post Acute Care Nurse Practitioner (ASCP) Performed By: #### L 7400.0280 #### [facility] [address] [place], [address] SIGN Comment Normal . [facility] Comment on above: Order Comment: Speci men Comment: [id number] Specimen Comment: No. of containers..01 ThinPrep Vial Result Comment: Angelito Matthews MD, Pathologist Performed By: #### L 7400.0280 #### [facility] [address] [place], [address] Cervical or vaginal specimen microscopic examination by liquid based cytology (reportOrdered By: Karen Ferris on 09-11-2025 Cytology report Cyto stain.thin prep Doc (Cvx/Vag) Comment . [facility] Comment on above: Criteria not met, HP V Genotype not performed.Performed at: - [address] [id number] Director: Reyna Quarles MD, Phone: [phone] at: = - [facility] [id number] Director: Reyna Quarles MD, Phone: [phone] Cervical or vagninal specime n microscopic examination by cytology stain (reported asOrdered By: Karen Ferris on 09-11-2025 Cytology report Cyto stain Doc (Cvx/Vag) Comment . [facility] Comment on above: The Pap smear is [...] Probe+sig amp Ql (Cvx) Positive High Negative [facility] Comment on above: This nucleic acid am plification test detects fourteen high-risk HPV types (16,18,31,33,35,39,45,51,52,56,58,59,66,68)without differentiation. Laboratory - CytologyOrdered By: Karen Ferris on 09-11-2025 Post Acute Care Nurse Practitioner Cyto stain Nom (Cvx/Vag) [ID] Comment . [facility] Comment on above: Jonah Arnold (ASCP) Pathologist Cyto stain Nom (Cvx/Vag) [ID] Comment . [facility] Comment on above: Bernice Matthews MD, P athologist Laboratory - Miscellaneous t estsOrdered By: Karen Ferris on 09-11-2025 Service comment (Unsp spec) [Interp] . . [facility] No Panel InformationOrdered By: Karen Ferris on 09-11-2025 Pap Smear Specimen Adequacy Comment . [facility] Comment on above: Satisfactory for evie luation. Endocervical and/or squamous metaplasticcells (endocervical component) are present. Pathology report final diagnosis Narrative Comment . 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) Technology Lead Required: No Is patient in pain?: No Allergies No Known Allergies Allergy (Verified 09/11/25 15:24) Medications ???Medication ???Instructions ???Recorded ???Confirmed ???Type albuterol sulfate 90 mcg/actuation 1 - 2 puff inhalation Q4H PRN MS N 10/23/14 09/11/25 History aerosol inhaler Wheezing [...] 2 current occupational status: employed current occupation: [employer] current occupational exposures/hazards: No pets and animals: [...] times per week duration: > 90 minutes/day micha/temple: None seatbelt use: always do you feel safe at home: Yes additional social history: - Dariel History 2 Elective abortions Hx Para 2 Spontaneous abortions Hx # Term Pregnancies Ectopic pregnancies Hx # Pregnancies Multiple births # of living children 2 Past Pregnancies Del. Date Name GA/Weeks Outcome Route Bth Weight Infant Gen Labor Lgth Anesthesia Del Locatn Provider [...] oriented to person and oriented to place HENPR Head: normal to inspection Neck Neck: normal [...] external appearance (more content not included)... Normal [facility] Absolute lymphocyte countOrd ered By: HEALTH ASSESSMENT on 06-19-2025 Lymphocytes Auto (Unsp spec) [#/Vol] 2.33 10*3/uL 0.83-4.51 [facility] Absolute neutrophil countOrd ered By: HEALTH ASSESSMENT on 06-19-2025 Neutrophils (Bld) [#/Vol] 6.2 10*3/uL 2.0-7.7 [facility] Absolute nucleated red blood cell countOrdered By: HEALTH ASSESSMENT on 06-19-2025 Nucleated RBC (Bld) [#/Vol] 0.00 10*3/uL 0-5 [facility] Anion gap in Serum or Plasma Ordered By: HEALTH ASSESSMENT on 06-19-2025 Anion gap [Moles/Vol] 13 mmol/L 5-15 [facility] BUN/creatinine ratioOrdered By: HEALTH ASSESSMENT on 06-19-2025 Urea nitrogen/Creatinine [Mass ratio] 15.7 mg/mg 10-20 [facility] Bilirubin directOrdered By: HEALTH ASSESSMENT on 06-19-2025 Bilirubin.direct [Mass/Vol] 0.12 mg/dL 0.00-0.30 [facility] Bilirubin, totalOrdered By: HEALTH ASSESSMENT on 06-19-2025 Bilirubin [Mass/Vol] 0.33 mg/dL 0.00-1.30 [facility] Blood band neutrophil count as percentage of total leukocytesOrdered By: HEALTH ASSESSMENT on 06-19-2025 Band form neutrophils/100 WBC (Bld) 66.2 % 47-70 [facility] CBC, Employeeon 06-19-2025 Absolute Lymph 2.33 X10 3/uL Normal 0.83-4.51 [facility] Comment on above: Performed By: #### L 500.2900, L100.0200, L400.0100 #### [facility] [address] [place], [address] Absolute Neut 6.2 X10 3/uL Normal 2.0-7.7 [facility] Comment on above: Performed By: #### L 500.2900, L100.0200, L400.0100 #### [facility] [address] [place], [address] Basophils/100 WBC (Bld) 0.4 % Normal 0-1 [facility] Comment on above: Performed By: #### L 500.2900, L100.0200, L400.0100 #### [facility] [address] [place], [address] Eosinophils/100 WBC (Bld) 2.1 % Normal 0-5 [facility] Comment on above: Performed By: #### L 500.2900, L100.0200, L400.0100 #### [facility] [address] [place], [address] Erythrocyte distribution width (RBC) [Ratio] 11.7 % Normal 11.6-14.6 [facility] Comment on above: Performed By: #### L 500.2900, L100.0200, L400.0100 #### [facility] [address] [place], [address] Hematocrit (Bld) [Volume fraction] 46.3 % Normal 37-47 [facility] Comment on above: Performed By: #### L 500.2900, L100.0200, L400.0100 #### [facility] [address] [place], [address] Hemoglobin (Bld) [Mass/Vol] 15.6 g/dL High 12.0-15.0 [facility] Comment on above: Performed By: #### L 500.2900, L100.0200, L400.0100 #### [facility] [address] [place], [address] Lymphocytes/100 WBC (Bld) 24.9 % Normal 19-41 [facility] Comment on above: Performed By: #### L 500.2900, L100.0200, L400.0100 #### [facility] [address] [place], [address] MCH (RBC) [Entitic mass] 31.6 pg Normal 27.0-32.0 [facility] Comment on above: Performed By: #### L 500.2900, L100.0200, L400.0100 #### [facility] [address] [place], [address] MCHC (RBC) [Mass/Vol] 33.7 g/dL Normal 32-36 [facility] Comment on above: Performed By: #### L 500.2900, L100.0200, L400.0100 #### [facility] [address] [place], [address] MCV (RBC) [Entitic vol] 93.9 fL Normal 81-99 [facility] Comment on above: Performed By: #### L 500.2900, L100.0200, L400.0100 #### [facility] [address] [place], [address] Monocytes/100 WBC (Bld) 6.1 % Normal 0-10 [facility] Comment on above: Performed By: #### L 500.2900, L100.0200, L400.0100 #### [facility] [address] [place], [address] Neutrophils/100 WBC (Bld) 66.2 % Normal 47-70 [facility] Comment on above: Performed By: #### L 500.2900, L100.0200, L400.0100 #### [facility] [address] [place], [address] NRBC # 0.00 10 3/uL Normal 0-5 [facility] Comment on above: Performed By: #### L 500.2900, L100.0200, L400.0100 #### [facility] [address] [place], [address] Nucleated RBC (Bld) [#/Vol] 0 10*3/uL Normal 0-5 [facility] Comment on above: Performed By: #### L 500.2900, L100.0200, L400.0100 #### [facility] [address] [place], [address] Platelet mean volume (Bld) [Entitic vol] 10.2 fL Normal 6.2-12.0 [facility] Comment on above: Performed By: #### L 500.2900, L100.0200, L400.0100 #### [facility] [address] [place], [address] Platelets (Bld) [#/Vol] 252 10*3/uL Normal 150-450 [facility] Comment on above: Performed By: #### L 500.2900, L100.0200, L400.0100 #### [facility] [address] [place], [address] RBC (Bld) [#/Vol] 4.93 10*6/uL Normal 4.2-5.4 [facility] Comment on above: Performed By: #### L 500.2900, L100.0200, L400.0100 #### [facility] [address] [place], [address] RDW SD 40.6 fl Normal 35.1-43.9 [facility] Comment on above: Performed By: #### L 500.2900, L100.0200, L400.0100 #### [facility] [address] [place], [address] WBC (Bld) [#/Vol] 9.4 10*3/uL Normal 4.4-11.0 [facility] Comment on above: Performed By: #### L 500.2900, L100.0200, L400.0100 #### [facility] [address] [place], [address] Calculated very low density lipoprotein (VLDL) cholesterol measurementOrdered By: HEALTH ASSESSMENT on 06-19-2025 Calculated very low density lipoprotein (VLDL) cholesterol measurement 43 mg/dL High 5-40 [facility] Carbon dioxide, total [Moles /volume] in Central venous bloodOrdered By: HEALTH ASSESSMENT on 06-19-2025 CO2 [Moles/Vol] 23.7 mmol/L 21.0-32.0 [facility] Chloride assayOrdered By: HE ALTH ASSESSMENT on 06-19-2025 Chloride [Moles/Vol] 105 mmol/L 98-108 [facility] Employee Profileon Cholesterol in LDL [Mass/Vol] 173 mg/dL High 0-130 [facility] Comment on above: Performed By: #### L 500.2900, L100.0200, L400.0100 #### [facility] [address] [place], [address] Erythrocyte distribution wid th ratioOrdered By: HEALTH ASSESSMENT on 06-19-2025 Erythrocyte distribution width (RBC) [Ratio] 11.7 % 11.6-14.6 [facility] Erythrocyte distribution wid th standard deviationOrdered By: HEALTH ASSESSMENT on 06-19-2025 Erythrocyte distribution width (RBC) [Ratio] 40.6 fl 35.1-43.9 [facility] Glomerular filtration rate ( GFR) estimation/1.73 sq m using serum, plasma, or whole bOrdered By: HEALTH ASSESSMENT on 06-19-2025 GFR/1.73 sq M.predicted among non-blacks MDRD (S/P/Bld) [Vol rate/Area] 85 mL/min/{1.73_m2} >60 [facility] Comment on above: mL/min/1.73m2 CKD-EP I Creatinine Equation (2020) Hematocrit Auto (Bld) [Volum e fraction]Ordered By: HEALTH ASSESSMENT on 06-19-2025 Hematocrit (Bld) [Volume fraction] 46.3 % 37-47 [facility] Hemoglobin measurementOrdere d By: HEALTH ASSESSMENT on 06-19-2025 Hemoglobin (Bld) [Mass/Vol] 15.6 g/dL High 12.0-15.0 [facility] - Chemistry and C hemistry - challengeOrdered By: HEALTH ASSESSMENT on 06-19-2025 AST [Catalytic activity/Vol] 23 U/L <32 [facility] Lactate dehydrogenase (LDH) measurementOrdered By: HEALTH ASSESSMENT on 06-19-2025 LDH [Catalytic activity/Vol] 280 U/L High 84-246 [facility] MCV (mean corpuscular volume ) determinationOrdered By: HEALTH ASSESSMENT on 06-19-2025 MCV (RBC) [Entitic vol] 93.9 fL 81-99 [facility] Mean corpuscular hemoglobin (MCH) determinationOrdered By: HEALTH ASSESSMENT on 06-19-2025 MCH (RBC) [Entitic mass] 31.6 pg 27.0-32.0 [facility] Mean corpuscular hemoglobin concentration (MCHC) determinationOrdered By: HEALTH ASSESSMENT on 06-19-2025 MCHC (RBC) [Mass/Vol] 33.7 g/dL 32-36 [facility] Mean platelet volume determi nationOrdered By: HEALTH ASSESSMENT on 06-19-2025 Platelet mean volume (Bld) [Entitic vol] 10.2 fL 6.2-12.0 [facility] Nucleated red blood cell per centageOrdered By: HEALTH ASSESSMENT on 06-19-2025 Nucleated RBC/100 WBC (Bld) [Ratio] 0 % 0-5 [facility] Platelet countOrdered By: HE ALTH ASSESSMENT on 06-19-2025 Platelets (Bld) [#/Vol] 252 10*3/uL 150-450 [facility] Potassium measurement (mass/ volume)Ordered By: HEALTH ASSESSMENT on 06-19-2025 Potassium (Unsp spec) [Mass/Vol] 4.4 mmol/L 3.3-5.1 [facility] RBC Auto (Bld) [#/Vol]Ordere d By: HEALTH ASSESSMENT on 06-19-2025 RBC (Bld) [#/Vol] 4.93 10*6/uL 4.2-5.4 [facility] Screening total cholesterol/ high density lipoprotein (HDL) cholesterol ratioOrdered By: HEALTH ASSESSMENT on 06-19-2025 Cholesterol.total/Choles terol in HDL [Mass ratio] 6.98 {ratio} [facility] Serum creatinine measurement (mass/volume)Ordered By: HEALTH ASSESSMENT on 06-19-2025 Creatinine [Mass/Vol] 0.87 mg/dL 0.70-1.20 [facility] Serum globulin measurementOr dered By: HEALTH ASSESSMENT on 06-19-2025 Globulin (S) [Mass/Vol] 2.8 g/dL 2.2-4.2 [facility] Serum glucose measurement (m ass/volume)Ordered By: HEALTH ASSESSMENT on 06-19-2025 Glucose [Mass/Vol] 108 mg/dL High 70-99 [facility] Serum or plasma alanine grimm otransferase (ALT) measurementOrdered By: HEALTH ASSESSMENT on 06-19-2025 ALT [Catalytic activity/Vol] 17 U/L <35 [facility] Serum or plasma albumin bran urement (mass/volume)Ordered By: HEALTH ASSESSMENT on 06-19-2025 Albumin [Mass/Vol] 4.5 g/dL 3.5-5.0 [facility] Serum or plasma albumin/glob ulin mass ratioOrdered By: HEALTH ASSESSMENT on 06-19-2025 Albumin/Globulin [Mass ratio] 1.6 {ratio} 0.9-2.4 [facility] Serum or plasma alkaline stefani sphatase measurementOrdered By: HEALTH ASSESSMENT on 06-19-2025 ALP [Catalytic activity/Vol] 74 U/L 35-104 [facility] Serum or plasma calcium bran urement (mass/volume)Ordered By: HEALTH ASSESSMENT on 06-19-2025 Calcium [Mass/Vol] 10.0 mg/dL 7.6-11.0 [facility] Serum or plasma cholesterol in HDL measurement (mass/volume)Ordered By: HEALTH ASSESSMENT on 06-19-2025 Cholesterol in HDL [Mass/Vol] 36 mg/dL Low >40 [facility] Comment on above: National Cholesterol Education Program (NCEP) guidelines:<40 mg/dL: Low HDL-cholesterol (major risk factor for CHD)>= 60 mg/dL: High HDL-cholesterol (negative risk factor for CHD)HDL-cholesterol is affected by a number of factors, e.g. smoking, exercise, hormones, sex and age. Serum or plasma cholesterol in LDL measurement (mass/volume)Ordered By: HEALTH ASSESSMENT on 06-19-2025 Cholesterol in LDL [Mass/Vol] 173 mg/dL High 0-130 [facility] Serum or plasma cholesterol measurement (mass/volume)Ordered By: HEALTH ASSESSMENT on 06-19-2025 Cholesterol [Mass/Vol] 252 mg/dL High <201 [facility] Comment on above: Cholesterol level, D esirable <200 mg/dLBorderline high cholesterol 200-239 mg/dLHigh cholesterol >=240 mg/dLRecommendations of the NCEP Adult Treatment Panel for the following risk-cutoff thresholds for the [place] population. Serum or plasma urea nitroge n measurement (mass/volume)Ordered By: HEALTH ASSESSMENT on 06-19-2025 Urea nitrogen [Mass/Vol] 14 mg/dL 4-19 [facility] Serum or plasma uric acid me asurement (mass/volume)Ordered By: HEALTH ASSESSMENT on 06-19-2025 Urate [Mass/Vol] 5.6 mg/dL 2.6-6.0 [facility] Comment on above: The drugs N-Acetylcy steine and Metamizole may falsely depress this assay. Sodium levelOrdered By: [facility] ASSESSMENT on 06-19-2025 Sodium [Moles/Vol] 141 mmol/L 133-145 [facility] Total proteinOrdered By: [facility] ASSESSMENT on 06-19-2025 Protein [Mass/Vol] 7.3 g/dL 5.9-8.4 [facility] Triglycerides measurementOrd ered By: HEALTH ASSESSMENT on 06-19-2025 Triglyceride [Mass/Vol] 213 mg/dL High <199 [facility] Comment on above: The drugs N-Acetylcy steine and Metamizole may falsely depress this assay. Normal range: <150 mg/dLBorderline High: 150-199 mg/dLHigh: 200-499 mg/dLVery High: >500 mg/dL Urinalysis, Employeeon 06-19 BILIRUBIN URINE Normal Negative [facility] Comment on above: Order Comment: Urine , Random Result Comment: NOT WANTED Performed By: #### L 500.2900, L100.0200, L400.0100 #### [facility] [address] [place], [place], [id number] Clarity (U) Normal Clear [facility] Comment on above: Order Comment: Urine , Random Result Comment: NOT WANTED Performed By: #### L 500.2900, L100.0200, L400.0100 #### [facility] [address] [place], [address] Color (U) Normal Yellow [facility] Comment on above: Order Comment: Urine , Random Result Comment: NOT WANTED Performed By: #### L 500.2900, L100.0200, L400.0100 #### [facility] [address] [place], [address] GLUCOSE, UR Normal Normal [facility] Comment on above: Order Comment: Urine , Random Result Comment: NOT WANTED Performed By: #### L 500.2900, L100.0200, L400.0100 #### [facility] [address] [place], [address] KETONE UR Normal Negative [facility] Comment on above: Order Comment: Urine , Random Result Comment: NOT WANTED Performed By: #### L 500.2900, L100.0200, L400.0100 #### [facility] [address] [place], [address] LEUK ESTERASE Normal Negative [facility] Comment on above: Order Comment: Urine , Random Result Comment: NOT WANTED Performed By: #### L 500.2900, L100.0200, L400.0100 #### [facility] [address] [place], [address] Nitrite Ql (U) Normal Negative [facility] Comment on above: Order Comment: Urine , Random Result Comment: NOT WANTED Performed By: #### L 500.2900, L100.0200, L400.0100 #### [facility] [address] [place], [address] OCCULT BLOOD-UR Normal Negative [facility] Comment on above: Order Comment: Urine , Random Result Comment: NOT WANTED Performed By: #### L 500.2900, L100.0200, L400.0100 #### [facility] [address] [place], [address] pH UR Normal 5.0 - 8.0 [facility] Comment on above: Order Comment: Urine , Random Result Comment: NOT WANTED Performed By: #### L 500.2900, L100.0200, L400.0100 #### [facility] [address] [place], [address] PROT DIPSTX Normal Negative [facility] Comment on above: Order Comment: Urine , Random Result Comment: NOT WANTED Performed By: #### L 500.2900, L100.0200, L400.0100 #### [facility] [address] [place], [address] SP.GR. DIPSTX Normal 1.002-1.030 [facility] Comment on above: Order Comment: Urine , Random Result Comment: NOT WANTED Performed By: #### L 500.2900, L100.0200, L400.0100 #### [facility] [address] [place], [address] UR Preservative Normal [facility] Comment on above: Order Comment: Urine , Random Result Comment: NOT WANTED Performed By: #### L 500.2900, L100.0200, L400.0100 #### [facility] [address] [place], [address] UROBILI Normal Normal [facility] Comment on above: Order Comment: Urine , Random Result Comment: NOT WANTED Performed By: #### L 500.2900, L100.0200, L400.0100 #### [facility] [address] [place], [address] White blood cell (WBC) count Ordered By: HEALTH ASSESSMENT on 06-19-2025 WBC (Bld) [#/Vol] 9.4 10*3/uL 4.4-11.0 [facility] .Auto Diffon 06-13-2025 Basophil, Absolute 0.1 10 3/mcL Normal 0.0-0.3 [facility] Comment on above: Performed By: #### G FR, FT4, FE, TSH, FT3, CMP, ANEU, ADIFF, FERR, CBC #### [address] [address] Basophils/100 WBC (Bld) 0.7 % Normal 0.0-2.5 [facility] Comment on above: Performed By: #### G FR, FT4, FE, TSH, FT3, CMP, ANEU, ADIFF, FERR, CBC #### [address] [address] Eosinophil, Absolute 0.2 10 3/mcL Normal 0.0-0.7 [facility] Comment on above: Performed By: #### G FR, FT4, FE, TSH, FT3, CMP, ANEU, ADIFF, FERR, CBC #### [address] [address] Eosinophils/100 WBC (Bld) 2.2 % Normal 0.0-6.0 [facility] Comment on above: Performed By: #### G FR, FT4, FE, TSH, FT3, CMP, ANEU, ADIFF, FERR, CBC #### [address] [address] Lymphocyte, Absolute 2.9 10 3/mcL Normal 0.9-4.3 [facility] Comment on above: Performed By: #### G FR, FT4, FE, TSH, FT3, CMP, ANEU, ADIFF, FERR, CBC #### [address] [address] Lymphocytes/100 WBC (Bld) 33.9 % Normal 20.0-40.0 [facility] Comment on above: Performed By: #### G FR, FT4, FE, TSH, FT3, CMP, ANEU, ADIFF, FERR, CBC #### [address] [address] Monocyte, Absolute 0.4 10 3/mcL Normal 0.1-1.4 [facility] Comment on above: Performed By: #### G FR, FT4, FE, TSH, FT3, CMP, ANEU, ADIFF, FERR, CBC #### [address] [address] Monocytes/100 WBC (Bld) 4.9 % Normal 2.0-13.0 [facility] Comment on above: Performed By: #### G FR, FT4, FE, TSH, FT3, CMP, ANEU, ADIFF, FERR, CBC #### [facility] [address] [place] [address] Neutrophils/100 WBC (Bld) 58.3 % Normal 50.0-75.0 [facility] Comment on above: Performed By: #### G FR, FT4, FE, TSH, FT3, CMP, ANEU, ADIFF, FERR, CBC #### [address] [address] .GFRon 06-13-2025 Estimated Glomerular Filtration Rate 94 ml/min/1.73sqm Normal [facility] Comment on above: Result Comment: [...] FT3, CMP, ANEU, ADIFF, FERR, CBC #### [address] [address] .NEUABSon 06-13-2025 Neutrophil, Absolute 4.9 10 3/mcL Normal 2.3-8.1 [facility] Comment on above: Performed By: #### G FR, FT4, FE, TSH, FT3, CMP, ANEU, ADIFF, FERR, CBC #### [facility] [address] [place] [address] CBCon 06-13-2025 Erythrocyte distribution width (RBC) [Ratio] 12.1 % Normal 11.5-15.5 [facility] Comment on above: Performed By: #### G FR, FT4, FE, TSH, FT3, CMP, ANEU, ADIFF, FERR, CBC #### [place] [address] Hematocrit (Bld) [Volume fraction] 45.6 % Normal 34.0-46.0 [facility] Comment on above: Performed By: #### G FR, FT4, FE, TSH, FT3, CMP, ANEU, ADIFF, FERR, CBC #### [place] [address] Hgb 15.7 G/dL Normal 12.0-16.0 [facility] Comment on above: Performed By: #### G FR, FT4, FE, TSH, FT3, CMP, ANEU, ADIFF, FERR, CBC #### [place] [address] MCH (RBC) [Entitic mass] 32.4 pg Normal 27.0-33.0 [facility] Comment on above: Performed By: #### G FR, FT4, FE, TSH, FT3, CMP, ANEU, ADIFF, FERR, CBC #### [place] [address] MCHC 34.5 G/dL Normal 32.0-36.0 [facility] Comment on above: Performed By: #### G FR, FT4, FE, TSH, FT3, CMP, ANEU, ADIFF, FERR, CBC #### [place] [address] MCV (RBC) [Entitic vol] 94.1 fL Normal 80.0-99.0 [facility] Comment on above: Performed By: #### G FR, FT4, FE, TSH, FT3, CMP, ANEU, ADIFF, FERR, CBC #### [place] [address] Platelet 247 10 3/mcL Normal 150-450 [facility] Comment on above: Performed By: #### G FR, FT4, FE, TSH, FT3, CMP, ANEU, ADIFF, FERR, CBC #### [place] [address] Platelet mean volume (Bld) [Entitic vol] 8.6 fL Normal 6.6-10.5 [facility] Comment on above: Performed By: #### G FR, FT4, FE, TSH, FT3, CMP, ANEU, ADIFF, FERR, CBC #### [place] [address] RBC 4.85 10 6/mcL Normal 4.10-5.30 [facility] Comment on above: Performed By: #### G FR, FT4, FE, TSH, FT3, CMP, ANEU, ADIFF, FERR, CBC #### [place] [address] WBC 8.4 10 3/mcL Normal 4.5-10.8 [facility] Comment on above: Performed By: #### G FR, FT4, FE, TSH, FT3, CMP, ANEU, ADIFF, FERR, CBC #### [place] [address] CMPon 06-13-2025 Albumin Level 4.5 G/dL Normal 3.2-4.8 [facility] Comment on above: Performed By: #### G FR, FT4, FE, TSH, FT3, CMP, ANEU, ADIFF, FERR, CBC #### [place] [address] Albumin/Globulin [Mass ratio] 1.5 {ratio} Normal 0.9-1.6 [facility] Comment on above: Performed By: #### G FR, FT4, FE, TSH, FT3, CMP, ANEU, ADIFF, FERR, CBC #### [place] [address] ALP [Catalytic activity/Vol] 72 U/L Normal 38-126 [facility] Comment on above: Performed By: #### G FR, FT4, FE, TSH, FT3, CMP, ANEU, ADIFF, FERR, CBC #### [place] [address] ALT [Catalytic activity/Vol] 21 U/L Normal 10-49 [facility] Comment on above: Performed By: #### G FR, FT4, FE, TSH, FT3, CMP, ANEU, ADIFF, FERR, CBC #### [place] [id number] AST [Catalytic activity/Vol] 23 U/L Normal 8-34 [facility] Comment on above: Performed By: #### G FR, FT4, FE, TSH, FT3, CMP, ANEU, ADIFF, FERR, CBC #### [address] [address] Bili Total 0.40 mg/dL Normal 0.20-1.20 [facility] Comment on above: Result Comment: Use of this assay is not recommended for patients undergoing treatment with eltrombopag due to the potential for falsely elevated results. Performed By: #### G FR, FT4, FE, TSH, FT3, CMP, ANEU, ADIFF, FERR, CBC #### [place] [id number] BUN/Creatinine Ratio 17.5 ratio Normal 10.0-22.0 [facility] Comment on above: Performed By: #### G FR, FT4, FE, TSH, FT3, CMP, ANEU, ADIFF, FERR, CBC #### [address] [address] Calcium [Mass/Vol] 10.1 mg/dL Normal 8.7-10.4 [facility] Comment on above: Performed By: #### G FR, FT4, FE, TSH, FT3, CMP, ANEU, ADIFF, FERR, CBC #### [address] [address] Chloride [Moles/Vol] 105 mmol/L Normal 98-110 [facility] Comment on above: Performed By: #### G FR, FT4, FE, TSH, FT3, CMP, ANEU, ADIFF, FERR, CBC #### [address] [address] CO2 [Moles/Vol] 28 mmol/L Normal 22-32 [facility] Comment on above: Performed By: #### G FR, FT4, FE, TSH, FT3, CMP, ANEU, ADIFF, FERR, CBC #### [address] [address] Creatinine [Mass/Vol] 0.80 mg/dL Normal 0.50-1.20 [facility] Comment on above: Result Comment: Test ing performed on PostBeyond analyzer using enzymatic creatinine methodology. Performed By: #### G FR, FT4, FE, TSH, FT3, CMP, ANEU, ADIFF, FERR, CBC #### [address] [address] Electrolyte Balance 9.0 mEq/L Normal 4.0-15.0 [facility] Comment on above: Performed By: #### G FR, FT4, FE, TSH, FT3, CMP, ANEU, ADIFF, FERR, CBC #### [address] [address] Globulin 3.0 G/dL Normal 2.5-4.2 [facility] Comment on above: Performed By: #### G FR, FT4, FE, TSH, FT3, CMP, ANEU, ADIFF, FERR, CBC #### [address] [address] Glucose [Mass/Vol] 91 mg/dL Normal 70-110 [facility] Comment on above: Performed By: #### G FR, FT4, FE, TSH, FT3, CMP, ANEU, ADIFF, FERR, CBC #### [address] [address] Potassium [Moles/Vol] 3.8 mmol/L Normal 3.5-5.0 [facility] Comment on above: Performed By: #### G FR, FT4, FE, TSH, FT3, CMP, ANEU, ADIFF, FERR, CBC #### [address] [address] Sodium [Moles/Vol] 142 mmol/L Normal 136-145 [facility] Comment on above: Performed By: #### G FR, FT4, FE, TSH, FT3, CMP, ANEU, ADIFF, FERR, CBC #### [address] [address] Total Protein 7.5 G/dL Normal 5.7-8.2 [facility] Comment on above: Performed By: #### G FR, FT4, FE, TSH, FT3, CMP, ANEU, ADIFF, FERR, CBC #### [address] [address] Urea nitrogen [Mass/Vol] 14.0 mg/dL Normal 8.0-22.0 [facility] Comment on above: Performed By: #### G FR, FT4, FE, TSH, FT3, CMP, ANEU, ADIFF, FERR, CBC #### [address] [address] FEon 06-13-2025 Iron [Mass/Vol] 83 ug/dL Normal 50-170 [facility] Comment on above: Performed By: #### G FR, FT4, FE, TSH, FT3, CMP, ANEU, ADIFF, FERR, CBC #### [address] [address] Judy 06-13-2025 Ferritin [Mass/Vol] 61.9 ng/mL Normal 8.0-252.0 [facility] Comment on above: Performed By: #### G FR, FT4, FE, TSH, FT3, CMP, ANEU, ADIFF, FERR, CBC #### [address] [address] FT3on 06-13-2025 Free T3 [Mass/Vol] 3.45 pg/mL Normal 2.30-4.20 [facility] Comment on above: Performed By: #### G FR, FT4, FE, TSH, FT3, CMP, ANEU, ADIFF, FERR, CBC #### [address] [address] FT4on 06-13-2025 Free T4 [Mass/Vol] 1.32 ng/dL Normal 0.89-1.76 [facility] Comment on above: Result Comment: No te - New Reference Range in effect 20 Performed By: #### G FR, FT4, FE, TSH, FT3, CMP, ANEU, ADIFF, FERR, CBC #### [place] [id number] [place] [address] TSHon 06-13-2025 TSH 1.785 mIU/mL Normal 0.550-4.780 [facility] Comment on above: Performed By: #### G FR, FT4, FE, TSH, FT3, CMP, ANEU, ADIFF, FERR, CBC #### [facility] [address] [place] [address] Magnetic resonance imaging r eportOrdered By: Sary Delgadillo on 05-24-2025 Study report [facility] Imaging Services [address] [place] [address] Breast Bilateral W/O and W MR#: [id number] Acct: [id number] Name: VEGA HENSLEY Rep #: [id number] : 1980 F 45 From: Danette Delgadillo MD PCP: Dr. Marcus Blum, DO Status: REG CLI Study:Breast Bilateral W/O and W Date of Exam : 05/22/25 Exam# [id number] Ordering Dr: Karen Ferris AGRONOMY TEACHER AGRONOMY TEACHER-C PROCEDURE: BREAST BILATERAL W/O AND W 05/22/2025 [...] annual follow-up in 1 Year Reading Location: [id number] CC: GALDINO Ferris; Dr. Marcus Blum DO ~ Compliance Auditor: Signed [facility] Breast Bilateral W/O and Won 05-22-2025 Breast Bilateral W/O and W [facility] Imaging Services [address] [place] [address] Breast Bilateral W/O and W MR#: [id number] Acct: [id number] Name: VEGA HENSLEY Rep #: [id number] : 1980 F 45 From: Sary Delgadillo MD PCP: Dr. Marcus Blum DO Status: REG CLI Study: Breast Bilateral W/O and W Date of Exam: 05/22 Exam# [id number] Ordering Dr: Karen Ferris NP, NP -Earl PROCEDURE: BREAST BILATERAL W/O AND W 05/22/2025 [...] annual follow-up in 1 Year Reading Location: [id number] CC: GALDINO Ferris; Dr. Marcus Blum DO Compliance Auditor: Signed Normal [facility] MR/POSTOP.ANEon 12-06-2024 MR/POSTOP.ANE [facility] Medical Records Department [address] [place] [address] Anesthesia Postop Eval I 12/06/24924 MR#: [id number] Acct: [id number] Name: VEGA HENSLEY Rep #: [id number] : 1980 44 From: Eloy Valdivia MD PCP: Dr. Marcus Blum, DO [place] [place] Race: C Location: [facility] Anesthesia: Postop Eval I Current Vital Signs [...] completed: Yes 12/06/241334 Date Eloy Valdivia MD Cosign Signature: Date CC: Signed Normal [facility] MR/[id number] 12-06-2024 [facility] Medical Records Department [address] [place] [address] Anesthesia Postop Eval II 12/06/241334 MR#: [id number] Acct: [id number] Name: VEGA HENSLEY Rep #: [id number] : 1980 44 From: Eloy Valdivia MD PCP: Dr. Marcus Blum, DO Status:[facility] Y Race: C Location: [facility] Anesthesia Postop Eval I Sum Postop Eval [...] Eloy Kang Signature: Date CC: Signed Normal [facility] Operative Reporton 5 Operative Report [facility] Medical Records Department [address] [place] [address] Operative Report 12/06/24 1431 MR#: [id number] Acct: [id number] Name: VEGA HENSLEY Laila Rep #: [id number] : 1980 44 From: Andrews Pizano DO PCP: Dr. Marcus Blum, DO Status:[facility] Location: [facility] Operative Report (Standard) Operative Information Date of Procedure: 12/06/24 Pre-Operative Diagnosis: Bilateral trigger thumb Post-Operative Diagnosis: Bilateral trigger thumb Surgery/Procedure Performed: Bilateral thumb A1 evans releases rubber ball finisher: No Type of Anesthesia: Local MAC RN [...] Follow-up in 2 weeks for suture removal. [place] prescription provided. Tylenol and ibuprofen encouraged. Ice [...] DO; Dr. Marcus Blum DO Signed Normal [facility] Final Surgical Pathology Rep [facility] 08-09-2024 Final Surgical Pathology Report . Pathology Reports Accession: Collected Date/Time: Received Date/Time: Pathologist: [id number] 08/06/2024 09:06 EDT 08/07/2024 08:32 EDT RAJENDRA [...] All parts labelled with patient name and [id number] Received in formalin labeled back of neck is 1 milton-brown skin fragment measuring 0.5 x 0.4 cm. The skin surface is raised and dark brown. Margin is inked black and specimen is bisected. TS-1 Sabrina Morales, Grossing Show Girl/ Dr. Diego Beard, Pathologist Performed by Sabrina Morales MICROSCOPIC DESCRIPTION: The microscopic examination is performed, except in the case of Gross Only. Electronically Signed by Pathology Report verified by [facility] RAJENDRA ABEL Sign out Date: 08/09/2024 08:56 Performing Lab: [facility], [address] [place] [address] Pathology Dept Disclaimer If ancillary studies were utilized, the following Laboratory Developed Test (LDT) disclaimer will apply: Under CLIA requirements, [facility] Pathology Laboratory is qualified to perform high complexity testing. For all ancillary stains, positive and negative controls stain appropriately. Performance characteristics of immunohistochemical and chromogenic in-situ hybridization tests have been determined by [facility] Pathology Laboratory. These tests are used for clinical purposes, They should not be regarded as investigational or for research. Normal [facility] Cervical or vagninal specime n microscopic examination by cytology stain (reported asOrdered By: Harriet Grant on 07-08-2023 Cytology report Cyto stain Doc (Cvx/Vag) Comment . [facility] Comment on above: The Pap smear is [...] DNA Probe+sig amp Ql (Cvx) Negative Negative [facility] Comment on above: This nucleic acid am plification test detects fourteen high-risk HPV types (16,18,31,33,35,39,45,51,52,56,58,59,66,68)without differentiation. Laboratory - CytologyOrdered By: Harriet Grant on 07-08-2023 Post Acute Care Nurse Practitioner Cyto stain Nom (Cvx/Vag) [ID] Comment . [facility] Comment on above: Yee Mcrae, Cytot echnologist (ASCP) Pathologist Cyto stain Nom (Cvx/Vag) [ID] Comment . [facility] Comment on above: Macey Jin MD, Pa thologist Recommended follow-up Cyto stain Nom (Cvx/Vag) Comment . [facility] Comment on above: Suggest follow up as clinically appropriate. Laboratory - Miscellaneous t estsOrdered By: Harriet Grant on 07-08-2023 Service comment (Unsp spec) [Interp] Comment . [facility] Comment on above: This liquid based Th inPrep(R) pap test was screened withthe use of an image guided system. Service comment (Unsp spec) [Interp] . . [facility] Liquid-based cerv Pap + CT/G C by JOANA w reflex to high-risk HPV for ASCUSOrdered By: Harriet Grant on 07-08-2023 Cytology report Cyto stain.thin prep Doc (Cvx/Vag) Comment . [facility] Comment on above: Criteria not met, HP V Genotype not performed.Performed at: - [facility] [id number] Director: Reyna Quarles MD, Phone: [phone] at: =G - [facility] [id number] Director: Reyna Quarles MD, Phone: [phone] No Panel InformationOrdered By: Harriet Grant on 07-08-2023 Follicle Stimulating Hormone 38.1 mIU/mL [facility] Comment on above: NORMAL REFERENCE [facility]AN [facility] FEMALE FOLLICULAR 2.3 - 12.6 mIU/mL MID-CYCLE PEAK 5.2 - 17.5 mIU/mL LUTEAL 1.7 - 12.9 mIU/mL POST-MENOPAUSAL ON MHT 5.9 - 72.8 mIU/mL NOT ON MHT 12.7 - 132.2 mlU/mL MALE 0.7 - 10.8 mIU/mL Luteinizing Hormone 53.4 mIU/mL [facility] Comment on above: NORMAL REFERENCE RAN GES FEMALE FOLLICULAR 1.9 - 26.2 mIU/mL MID-CYCLE PEAK 22.8 - 76.1 mIU/mL LUTEAL 0.6 - 16.6 mIU/mL POST-MENOPAUSAL ON MHT 1.1 - 52.4 mIU/mL NOT ON MHT 8.6 - 61.8 mIU/mL MALE 1.2 - 10.6 mIU/mL Thyroid Stimulating Hormone (TSH) 1.34 uIU/mL 0.358-3.74 [facility] Pathology report final diagnosis Narrative Comment . [facility] Comment on above: EPITHELIAL CELL ABNO RMALITY.LOW GRADE SQUAMOUS INTRAEPITHELIAL LESION (LSIL). R87.612 Serum or plasma estradiol (E 2) measurement (mass/volume)Ordered By: Harriet Grant on 07-08-2023 E2 [Mass/Vol] 47.6 pg/mL [facility] Comment on above: NORMAL REFERENCE RAN GES [...] 07-08-2023 Progesterone [Mass/Vol] 0.67 ng/mL See Comment [facility] Comment on above: Progesterone Referen ce Table: UNITS Female: Follicular 0.15 - 1.40 ng/mL Luteal 3.34 - 25.56 ng/mL Mid-luteal 4.44 - 28.03 ng/mL Postmenopausal 0.0 - 0.73 ng/mL : 1st Trimester 11.22 - 90.00 ng/mL 2nd Trimester 25.55 - 89.40 ng/mL 3rd Trimester 48.40 -422.50 ng/mL Serum or plasma prolactin me asurement (mass/volume)Ordered By: Harriet Grant on 07-08-2023 Prolactin [Mass/Vol] 11.7 ng/mL [facility] Comment on above: NORMAL REFERENCE RAN GES FEMALE NON- 2.2 - 30.3 ng/mL 8.1 - 347.6 ng/mL POST-MENOPAUSAL 0.7 - 31.5 ng/mL MALE 2.5 - 17.4 ng/mL Absolute lymphocyte countOrd ered By: HEALTH ASSESSMENT on 06-13-2023 Lymphocytes Auto (Unsp spec) [#/Vol] 2.38 10*3/uL 0.83-4.51 [facility] Absolute reticulocyte countO rdered By: HEALTH ASSESSMENT on 06-13-2023 Reticulocytes (Bld) [#/Vol] 0.00 10*3/uL 0-5 [facility] Basophil percentageOrdered B y: HEALTH ASSESSMENT on 06-13-2023 Basophil percentage 3.7 mg/dL 2.5-4.9 [facility] Bilirubin [Mass/Vol] 0.40 mg/dL 0.20-1.00 [facility] Comment on above: For patients on eltr ombopag therapy, use of Dimension [place] TBIL is not recommended. Chloride [Moles/Vol] 107 mmol/L 98-107 [facility] Cholesterol [Mass/Vol] 230 mg/dL <200 [facility] Comment on above: <200 mg/dL Desirable 200-240 mg/dL Borderline >240 mg/dL High Risk Glucose [Mass/Vol] 108 mg/dL 74-106 [facility] Comment on above: Fasting Glucose resu lt from 100 to 125 mg/dL suggests IMPAIRED HOMEOSTASIS per A.D.A. criteria. LDH [Catalytic activity/Vol] 201 U/L 84-246 [facility] Neutrophils (Bld) [#/Vol] 6.3 10*3/uL 2.0-7.7 [facility] Potassium [Moles/Vol] 4.1 mmol/L 3.5-5.1 [facility] Protein [Mass/Vol] 7.6 g/dL 6.4-8.2 [facility] Sodium [Moles/Vol] 139 mmol/L 136-145 [facility] Triglyceride [Mass/Vol] 189 mg/dL <199 [facility] Comment on above: The drugs N-Acetylcy steine and Metamizole may falsely depress this assay.Serum Triglycerides Reference Interval Normal <150 mg/dL Borderline high 150 - 199 mg/dL High 200 - 499 mg/dL Very High > or = 500 mg/dL WBC (Bld) [#/Vol] 9.6 10*3/uL 4.4-11.0 [facility] Blood erythrocytes count (nu mber/volume)Ordered By: HEALTH ASSESSMENT on 06-13-2023 RBC (Bld) [#/Vol] 4.81 10*6/uL 4.2-5.4 [facility] Blood hemoglobin measurement (mass/volume)Ordered By: HEALTH ASSESSMENT on 06-13-2023 Hemoglobin (Bld) [Mass/Vol] 15.6 g/dL 12.0-15.0 [facility] Blood platelet mean volumeOr dered By: HEALTH ASSESSMENT on 06-13-2023 Platelet mean volume (Bld) [Entitic vol] 10.2 fL 6.2-12.0 [facility] Determination of erythrocyte mean corpuscular volume (MCV)Ordered By: HEALTH ASSESSMENT on 06-13-2023 MCV (RBC) [Entitic vol] 96.5 fL 81-99 [facility] Direct bilirubinOrdered By: HEALTH ASSESSMENT on 06-13-2023 Bilirubin.direct [Mass/Vol] 0.08 mg/dL 0.00-0.30 [facility] Hematocrit Auto (Bld) [Volum e fraction]Ordered By: HEALTH ASSESSMENT on 06-13-2023 Hematocrit (Bld) [Volume fraction] 46.4 % 37-47 [facility] Laboratory - Chemistry and C hemistry - challengeOrdered By: HEALTH ASSESSMENT on 06-13-2023 ALP [Catalytic activity/Vol] 59 U/L 45-117 [facility] ALT [Catalytic activity/Vol] 23 U/L 13-56 [facility] Cholesterol.total/Choles terol in HDL [Mass ratio] 6.60 {ratio} [facility] CO2 [Moles/Vol] 27.0 mmol/L 21.0-32.0 [facility] Globulin (S) [Mass/Vol] 3.7 g/dL 2.2-4.2 [facility] Urea nitrogen/Creatinine [Mass ratio] 15.3 mg/mg 10-20 [facility] Laboratory - Hematology and Cell countsOrdered By: HEALTH ASSESSMENT on 06-13-2023 Erythrocyte distribution width (RBC) [Entitic vol] 40.5 fL 35.1-43.9 [facility] Erythrocyte distribution width (RBC) [Ratio] 11.4 % 11.6-14.6 [facility] MCH (RBC) [Entitic mass] 32.4 pg 27.0-32.0 [facility] Nucleated RBC/100 WBC (Bld) [Ratio] 0 % 0-5 [facility] MCHC Auto (RBC) [Mass/Vol]Or dered By: HEALTH ASSESSMENT on 06-13-2023 MCHC (RBC) [Mass/Vol] 33.6 g/dL 32-36 [facility] No Panel InformationOrdered By: HEALTH ASSESSMENT on 06-13-2023 Estimated GFR (MDRD) Amer 95 mL/min >60 [facility] Comment on above: GFR Calc Estimated GFR (MDRD) Non-Af Amer 78 mL/min >60 [facility] Comment on above: Non- GFR Calc Platelets bldOrdered By: ANAMIKA AULTMAN [facility] ASSESSMENT on 06-13-2023 Platelets (Bld) [#/Vol] 251 10*3/uL 150-450 [facility] Segmented neutrophils/100 WB C Auto (Bld)Ordered By: HEALTH ASSESSMENT on 06-13-2023 Segmented neutrophils/100 WBC (Bld) 65.8 % 47-70 [facility] Serum or plasma albumin bran urement (mass/volume)Ordered By: HEALTH ASSESSMENT on 06-13-2023 Albumin [Mass/Vol] 3.9 g/dL 3.2-5.0 [facility] Serum or plasma albumin/glob ulin mass ratioOrdered By: HEALTH ASSESSMENT on 06-13-2023 Albumin/Globulin [Mass ratio] 1.1 {ratio} 0.9-2.4 [facility] Serum or plasma calcium bran urement (mass/volume)Ordered By: HEALTH ASSESSMENT on 06-13-2023 Calcium [Mass/Vol] 9.1 mg/dL 8.5-10.1 [facility] Serum or plasma cholesterol in HDL measurement (mass/volume)Ordered By: HEALTH ASSESSMENT on 06-13-2023 Cholesterol in HDL [Mass/Vol] 35 mg/dL >40 [facility] Comment on above: The drugs N-Acetylcy steine and Metamizole may falsely depress this assay. Reference Range HDL <40 mg/dL Low HDL Cholesterol HDL >or= 60 mg/dL High HDL Cholesterol Serum or plasma cholesterol in VLDL measurement (mass/volume)Ordered By: HEALTH ASSESSMENT on 06-13-2023 Cholesterol in VLDL [Mass/Vol] 38 mg/dL 5-40 [facility] Serum or plasma creatinine m easurement (mass/volume)Ordered By: HEALTH ASSESSMENT on 06-13-2023 Creatinine [Mass/Vol] 0.85 mg/dL 0.55-1.02 [facility] Comment on above: The validity of the calculated GFR & GFRAA in patients over 70 years has not been determined. Clinical correlation is essential. Serum or plasma low density lipoprotein (LDL) cholesterol measurement (mass/volume)Ordered By: HEALTH ASSESSMENT on 06-13-2023 Cholesterol in LDL [Mass/Vol] 157 mg/dL 0-130 [facility] Serum or plasma urea nitroge n measurement (mass/volume)Ordered By: HEALTH ASSESSMENT on 06-13-2023 Urea nitrogen [Mass/Vol] 13 mg/dL 7-18 [facility] Serum or plasma uric acid me asurement (mass/volume)Ordered By: HEALTH ASSESSMENT on 06-13-2023 Urate [Mass/Vol] 4.5 mg/dL 2.6-6.0 [facility] Comment on above: The drugs N-Acetylcy steine and Metamizole may falsely depress this assay. Thin prep Papanicolaou smear with manual screeningOrdered By: HEALTH ASSESSMENT on 06-13-2023 Thin prep Papanicolaou smear with manual screening 18 U/L 15-37 [facility] Thin prep Papanicolaou smear with manual screening 5 5-15 [facility] MSCon 08-22-2017 [facility] REPORT Normal [facility] [place] [facility] DATE OF SERVICE: 08/22/2017REASON FOR VISIT: [...] Her questions wereanswered to her satisfaction. DOMO Proctor/[id number]: 08/22/2017 18:03DT: 08/23/2017 11:37SSI File#: [id number] #: [id number]/Reviewed by12/30/17 [address] [facility] PATIENT NAME: VEGA HENSLEY [id number] MEDICAL REC #: [id number], [place] [address] [facility] PHYSICIAN Normal [facility] [place] Vital Signs Date Time Vital Sign Value Performing Clinician Jamila sanchez 09-11-2025 15:22-0400 Body height 162.[address] Marcus Blum DO Work Phone: [facility] 09-11-2025 15:19-0400 Body mass index (BMI) [Ratio] 31.6 kg/m2 Dr. Marcus Blum DO Work Phone: [facility] 09-11-2025 15:19-0400 Body weight 83.[address] Marcus Blum DO Work Phone: [facility] 09-11-2025 15:19-0400 Diastolic blood pressure 76 mm[Hg] Dr. Marcus Blum DO Work Phone: [facility] 09-11-2025 15:19-0400 Systolic blood pressure 118 mm[Hg] Dr. Marcus Blum DO Work Phone: [facility] Encounters Encounter Date Encounter Type Care Provider Facility Start: 10-16-2025 ambulatory Karen Ferris NP Facil ity:[facility] Start: 10-07-2025 ambulatory Marcus Blum Facility: [facility] Start: 10-07-2025 End: 10-07-2025 ambulatory Marcus Blum Facility:[facility] Start: 09-11-2025 Patient encounter procedure Karen Ferris AGRONOMY TEACHER-C -Laboratory Specimen Work Phone: Start: 09-11-2025 End: 09-11-2025 Patient encounter procedure Karen Ferris AGRONOMY TEACHER-C -[facility] Work Phone: Start: 09-11-2025 End: 09-11-2025 Patient encounter status Karen Ferris AGRONOMY TEACHER-C [facility] Start: 09-11-2025 End: 09-11-[address] Marcus Blum DO Work Phone: -[facility] Start: 09-11-2025 End: 09-11-2025 ambulatory Marcus Blum Facility:[facility] Start: 06-19-2025 Registered Referred [facility] -Employee Health Start: 06-19-2025 ambulatory RG Montes De Oca ity:[facility] Start: 06-13-2025 End: 06-13-2025 ambulatory MARCUS BLUM DO Facility:A Start: 05-22-2025 End: 05-22-[address] Marcus Blum DO Work Phone: [facility] Start: 05-22-2025 End: 05-22-2025 Patient encounter procedure Karen Ferris AGRONOMY TEACHER-C -[facility] Work Phone: Start: 05-22-2025 End: 05-22-2025 ambulatory Karen Ferris AGRONOMY TEACHER Facility:[facility] Start: 12-06-2024 End: 12-06-2024 ambulatory Andrews Pizano Facility:[facility] Start: 11-29-2024 ambulatory Karen Ferris AGRONOMY TEACHER Facil ity:[facility] Start: 08-06-2024 End: 08-10-2024 ambulatory MARCUS BLUM DO Facility:[facility] Start: 07-29-2023 End: 07-29-2023 ambulatory [facility] Work Phone: Start: 07-29-2023 End: 07-29-2023 Patient encounter procedure [facility]-Outpatient Breast Imaging Work Phone: Start: 07-08-2023 End: 07-08-2023 ambulatory [facility] Work Phone: Start: 07-08-2023 End: 07-08-2023 Patient encounter procedure [facility]-Laboratory, Specimen Work Phone: Start: 06-13-2023 Registered Referred [facility]-Employee Health Start: 08-22-2017 Ambulatory Pratheep Pawa Facility: [facility] Procedures Date Procedure Procedure Detail Performing Clinician Start: 09-11-2025 Liquid based cervica l cytology screening Dr. Marcus Blum DO Work Phone: Comment on above: EPITHELIAL CELL ABNO RMALITY.LOW GRADE SQUAMOUS INTRAEPITHELIAL LESION (LSIL).ATYPICAL SQUAMOUS CELLS, CANNOT EXCLUDE HIGH-GRADE SQUAMOUSINTRAEPITHELIAL LESION (ASC-H). This liquid based Th inPrep(R) pap test was interpretedusing the Flowgram(R) Genius(TM) Cervical Algorithm wholeslide imaging system. Start: 06-19-2025 Serum inorganic phos phate measurement Dr. Marcus Blum DO Work Phone: Start: 05-22-2025 MRI of bilateral alfredo asts with contrast Dr. Marcus Blum DO Work Phone: Start: 07-29-2023 Screening mammography Plan of Treatment Date Care Activity Detail Author Start: 10-09-2025 MG Breast - bilateral Screening [facility] Path report.final Dx Spec [facility] Immunizations Immunization Date Immunization Notes Care Provider Fa [facility] 09-26-2024 influenza, seasonal, injectable, preservative free Dr. Marcus Blum DO Work Phone: [facility] 10-13-2023 influenza, injectabl e, quadrivalent, preservative free Dr. Marcus Blum DO Work Phone: [facility] 08-30-2022 influenza, injectabl e, quadrivalent, preservative free [facility] 08-30-2022 influenza, seasonal, injectable [facility] 09-30-2021 Covid (Moderna) [facility] 09-02-2021 influenza, injectabl e, quadrivalent, preservative free [facility] 09-02-2021 influenza, seasonal, injectable [facility] 12-29-2020 Covfl (Moderna) [facility] 12-01-2020 Covid (Moderna) [facility] 09-15-2020 influenza, injectabl e, quadrivalent, preservative free [facility] 09-15-2020 influenza, seasonal, injectable [facility] 09-27-2019 influenza, injectabl e, quadrivalent, preservative free [facility] 09-27-2019 influenza, seasonal, injectable [facility] 08-14-2018 influenza, injectabl e, quadrivalent, preservative free [facility] 08-14-2018 influenza, seasonal, injectable [facility] 09-21-2017 influenza, injectabl e, quadrivalent, preservative free [facility] 09-21-2017 influenza, seasonal, injectable [facility] 08-26-2016 influenza, injectabl e, quadrivalent, preservative free [facility] 08-26-2016 influenza, seasonal, injectable [facility] 09-23-2015 influenza, injectabl e, quadrivalent, preservative free [facility] 09-23-2015 influenza, seasonal, injectable [facility] 09-02-2014 influenza, injectabl e, quadrivalent, preservative free [facility] 09-02-2014 influenza, seasonal, injectable [facility] 09-27-2013 Influenza virus vaccine [facility] Payers Date Payer Category Payer Self-pay [id number] [id number] Unknown [id number] 2013 Unknown [id number] 1980 Unknown [id number] 2.16. [id number] 1982 Unknown [id number] 2.16.8 [id number] Unknown [id number] 2.16.8 [id number] Unknown [id number] 2.16.8 [id number] Unknown [id number] 2.16.8 [id number] Unknown [id number] 2.16.8 [id number] Unknown [id number] 2.16.8 [id number] Unknown [id number] 2.16.8 [id number] Unknown [id number] 2.16.8 [id number] Unknown [id number] 2.16.8 [id number] Unknown [id number] 2.16.8 [id number] Unknown [id number] 2.16.8 [id number] Social History Date Type Detail Facility Start[facility]17-[facility] Start: 1980 Sex Assigned At Female [facility] Start: 11-30-2024 [facility] Sex Female [facility] Progress note 09-11-2025 Note Date & Type Note Facility 09-11-2025 Progress note [facility] Progress note 09-11-2025 Note Date & Type Note Facility 09-11-2025 Progress note Note Date/Time September 11, 2025 3:32pm 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 Required: No Is patient in pain?: No [...] menopausal: No Patient : No : No [facility] Medical History Wears glasses History of steroid [...] 2 current occupational status: employed current occupation: [employer] current occupational exposures/hazards: No pets and animals: [...] times per week duration: > 90 minutes/day micha/temple: None seatbelt use: always do you feel safe at home: Yes additional social history: - Dariel History 2 Elective abortions Hx Para 2 Spontaneous abortions Hx # Term Pregnancies Ectopic pregnancies Hx # Pregnancies Multiple births # of living children 2 Past Pregnancies Del. Date Name GA/Weeks Outcome Route Bth Weight Infant Gen Labor Lgth Anesthesia Del Locatn Provider [...] person and oriented to place [facility] Head: normal to inspection Neck Neck: [...] 1 year, prn with problems Karen Ferris CRUDE OIL DRIVER 09/11/25 1532 <Electronically signed by Karen Hasting s AGRONOMY TEACHER AGRONOMY TEACHER-C> Date _ Karen Ferris AGRONOMY TEACHER AGRONOMY TEACHER-C Cosigner Signature: Date (if applicable) CC: ~ [facility] Work Phone: Clinical Note 07-08-2023 Note Date & Type Note Facility 07-08-2023 Note [facility] Pap Smear Specimen Adequacy July 08, 2023 11:08am Comment . Satisfactory for evaluation. Endocervical and/or squamous metaplasticcells (endocervical component) are present. Comment on above: Satisfactory for evie luation. Endocervical and/or squamous metaplasticcells (endocervical component) are present. Evaluation note Note Date & Type Note Facility Evaluation note No assessment information availa ble [facility] Work Phone: Evaluation note Note Date & Type Note Facility Evaluation note Diagnosis Onset Date Resolution Encounter for routine gynecological examination noneactive September 11 3:15pm [facility] Work Phone: Reason for referral (narrative) Note Date & Type Note Facility Reason for referral (narrative) No reason for referral information available [facility] Work Phone: Summary Purpose Family History No [...] September 11:00am Living Will No October 23, 014 11:00am Power of Floor Renovator No October 23, 2014 11:00am Advance Directive Response Recorded Date/ Time Advance Directives No September 11:00am Chief Complaint and Reason for Visit Chief Complaint 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 Chief Complaint 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 SCREENING Chief Complaint Admit Date MRI alternate w/ mammo Q6mos May 22, 2025 12:32pm Chief Complaint Admit Date EMPLOYEE LABS June 19, 2025 7:20 am 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) September 11, 2025 3 :15pm Reason for Visit Admit Date Encounter for routine gynecological exam ination September 11, 2025 3:15pm Additional Source Comments INFORMATION SOURCE (unrecogn ized section and content) DATE CREATED AUTHOR 05/22/2018 [facility] [place] DATE CREATED AUTHOR AUTHOR'S ORGANIZ ATION 06/17/2025 [facility] DATE CREATED AUTHOR AUTHOR'S ORGANIZ ATION 10/09/2025 [facility] Care Teams (unrecognized sec tion and content) Team Status: Active Member Role Status Dates No Primary Care Physician Family Provider Active Dr. Marcus Blum DO Primary Care Provider Active Team Status: Inactive Member Role Status Dates Dr. Marcus Blum DO Primary Care Provider Active Dr. Harriet Grant DO Attending Provider Active Team Status: Active Member Role Status Dates Dr. Marcus Blum DO Primary Care Provider Active Health Risk Assessment Attending Provider, Referring P teresa Active Team Status: Inactive Member Role Status [...] 2025 End: May 22, 2025 Karen Ferris AGRONOMY TEACHER, AGRONOMY TEACHER-C Attending Provider Active Start: May 22, 2025 End: May 22, 2025 Karen Ferris AGRONOMY TEACHER, AGRONOMY TEACHER-C Referring Provider Active Start: May 22, 2025 [...] 2025 End: September 11, 2025 Karen Ferris NP, NP-Earl Attending physician Active Start: September 11, 2025 End: September 11, 2025 Team Status: Active Member Role/Relationship Status Dates Dr. Marcus Blum DO Primary care physician Active Start: September 11, 2025 Karen Ferris NP, NP-C Attending physician Active Start: September 11, 2025 [...] BE BASED ON THE PRIMARY CLINICAL RECORDS. [facility]. provides no warranty or guarantee of the accuracy or completeness of information in this document.
== END | disposition home or self-care (01) ==
LOC: OPBI 08:11
PROVIDERS: PCP Family Medicine; Referring Provider Nurse Practitioner Women's Health; Visit Provider Nurse Practitioner Women's Health
DX: Z12.31 Encounter for screening mammogram for malignant neoplasm of breast (principal)
CPT/HCPCS: 77063; 77067